=== PATIENT | female | born 1940 | race Caucasian/White ===

== ENCOUNTER 2023-02-25 10:12 | Day surgery (SDC) | payer MEDICARE, SELFPAY ==
--- OUTSIDE RECORDS SUMMARY | 2023-02-25 10:16 | XMS_ITS | Clinical Summary ---
Author Name Unknown Organization [facility] Address [address] [place] [address] Care Team Providers Care Tape Edge Machine Operator Name Role Phone Annie Wu M.D. Primary Care Pro vider Source Comments Patient records contain information from all sites at [facility]. For routine questions regarding patient records, call [phone] during business hours, M-F 8:00 AM - 5:00 PM Central Time. Record requests for emergency care only can be directed to [phone] at any time.[facility] Allergies No known active allergies Medications Medication Sig Dispensed Refills Start Date End Date Status cholecalciferol (for_VITAMIN D3) 1,000 Unit tablet Take 1 tablet by mouth daily. 0 11/14/2012 Active cyanocobalamin (for_VITAMIN B12) 1,000 mcg tablet Take 1 tablet by mouth daily. 0 04/09/2010 Active MULTIVITAMIN ORAL Take by mouth daily. 0 04/09/2010 Active DOCOSAHEXANOIC ACID/EPA (FISH OIL ORAL) Take 1 capsule by mouth daily. 0 04/09/2010 Active acetaminophen (TYLENOL) 500 mg tablet Take 2 tablets (1,000 mg total) by mouth every 6 (six) hours as needed for pain. 100 tablet 0 01/17/2019 Active FLAXSEED OIL ORAL Take 1 capsule by mouth daily. [address] Active aspirin [address] tablet Take 81 mg by mouth daily. 0 Active melatonin 5 mg tablet Take 5 mg by mouth at bedtime. 0 Active CALCIUM-MAGNESIUM -ZINC ORAL Take 1 tablet by mouth daily. 0 Active traZODone (DESYREL) 100 mg tablet Take 1 tablet (100 mg total) by mouth at bedtime. 90 tablet 3 02/11/2022 Active citalopram (CeleXA) 10 mg tablet Take 1 tablet (10 mg total) by mouth daily. 90 tablet 3 02/11/2022 Active benazepriL (LOTENSIN) 10 mg tablet Take 1 tablet (10 mg total) by mouth daily. 90 tablet 3 02/11/2022 Active letrozole (FEMARA) 2.5 mg tablet Take 1 tablet (2.5 mg total) by mouth daily. Take with or without food. 90 tablet 3 05/07/2022 Active metFORMIN (GLUCOPHAGE) 1,000 mg tablet TAKE 1 TABLET(1000 MG) BY MOUTH TWICE DAILY WITH MEALS 180 tablet 1 11/25/2022 Active atorvastatin (LIPITOR) 20 mg tablet TAKE 1 TABLET BY MOUTH DAILY 90 tablet 3 11/25/2022 Active glucos sul 2KCl/msm/chond/C/ Mn (GLUCOSAMINE CHONDROITIN ORAL) Take 1 tablet by mouth daily. 0 Active UNABLE TO FIND Take 1 each by mouth daily. Med Name: Prevagen 10 mg daily 0 Active levothyroxine (SYNTHROID, LEVOTHROID) 112 mcg tablet Take 1 tablet (112 mcg total) by mouth daily. 90 tablet 3 02/12/2023 Active levothyroxine (SYNTHROID, LEVOTHROID) 125 mcg tablet TAKE 1 TABLET(125 MCG) BY MOUTH DAILY 90 tablet 2 05/01/2022 3 Discontinued levothyroxine (SYNTHROID, LEVOTHROID) 125 mcg tablet TAKE 1 TABLET(125 MCG) BY MOUTH DAILY 90 tablet 0 01/27/2023 4 Discontinued Active Problems Problem Noted Date Diagnosed Date History Of Falling 02/12/2023 Osteopenia 04/17/2021 Prophylactic Use Aromatase Inhibitor 04/17/2021 Cancer Breast In Situ Left 04/17/2021 Aftercare Total Knee Arthroplasty 01/14/2019 Malignant Neoplasm Of Breast Female Left 017 Hypertension Essential Primary 03/19/2016 Overview: HTN - Hypertension date of onset unknown Hyperlipidemia 03/19/2016 Overview: date of onset unknown Hypothyroidism 03/19/2016 Overview: date of onset unknown Apnea Sleep Obstructive 03/19/2016 Overview: date of onset unknown Poliomyelitis 03/19/2016 Overview: as child Carpal Tunnel Syndrome Left 11/01/2015 Diverticulosis 04/26/2015 Diabetes Mellitus Type 2 Without Complication Overview: DM2 Chronic Fatigue Syndrome 08/02/2010 Overview: date of onset unknown Dry Eye Syndrome 07/11/2008 Cataract Senile Nuclear Sclerosis Bilateral 03/2008 Cataract 07/10/2008 Major Depressive Disorder Single Episode Unspeci fied 11/24/2007 Mass Adnexal 02/26/2007 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 Nodule Thyroid 07/10/2005 Edema Macular Cystoid Bilateral 05/05/2005 Arrhythmia Sinus 07/03/2004 Trigger Finger 06/24/2004 Presbyopia 06/10/2004 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 Erickson, Brook C, R.N. Annual Medicare Examination Return (Primary Dx) Discharge Disposition: Home or Self Care 02/12/2023 11:30 AM DICTAPHONE TRANSCRIBER Office Visit Department of Family Medicine, [facility], in [address] [address] Sarah iDaz APRN, C.N.P., D.N.P. Hypertension Essential Primary (Primary Dx); Preoperative Exam; Cataract; Malignant Neoplasm Of Breast Female Left (HCC); Diabetes Mellitus Type 2 Without Complication (HCC); Hypothyroidism; Hyperlipidemia; History Of Falling Discharge Disposition: Home or Self Care 02/10/2023 Orders Only [facility] Annie Wu M.D. Monitoring For Therapeutic Drug Therapy; Hypothyroidism 01/26/2023 Refill Department of Family Medicine, [facility], [address] [phone] Annie Wu M.D. Med Refill 11/25/2022 Refill Department of [facility], [facility], [address] [phone] Annie Wu M.D. Med Refill from Last 3 Months Immunizations Name Administration Dates Next Due H1N1 Inj 04/09/2009 HZV (ZOSTAVAX) 12/09/2006 HepB, Unspecified 02/12/2023(Deferred: Other - CHECK WITH PCP) Influenza (IM) Preservative Free 11/22/2009,10/11,12/09/2006 Influenza Split 12/16/2007,02/09/2001 Influenza high dose QV(65 ye ars or older) (PF) 11/04/2022,11/08/2021,11/16/2020,2019 Influenza, Seasonal, Injectable 12/10/19 06,12/10/2004,12/13/2003,2002 Influenza, Unspecified 12/01/2016,2015,10/30/2014,2013,11/11/2012,11/11/2011,11/23/2010 PCV13 06/08/2014 PCV20 11/04/2022 PPSV23 12/10/2004 RSV: respiratory syncytial v irus (ABRYSVO) bivalent vaccine 11/04/2022 RZV (SHINGRIX) 08/20/2022,(Deferred: Other - will inquire with PCP),04/19/2021,04/17/2021(Deferred: Other - Will update locally) SARS-COV-2 (COVID-19) - PFIZ ER (12 years or older) 11/01/2020,04/17/2020,03/22/2020 Td (Adult), adsorbed 01/19/2002 Tdap 10/29/2014,06/07/2012 influenza high dose (65 year s or older) (PF) 11/23/2018,11/11/2017 Family History Medical History Relation Name Comments Dementia Brother 1 Cholo Pulmonary hypertension Brother 2 [place] Brother 4 Иван Emphysema Brother 4 Иван No Known Problems Brother 5 Obey No Known Problems Brother 6 Joshua No Known Problems Brother 7 Wilian Breast cancer Daughter 1 Marvin Hypothyroidism Daughter 1 Marvin No Known Problems Daughter 2 Adeline No Known Problems Father Breast cancer Mother Cyndi Dementia Mother Cyndi Breast cancer Mother's Sister Ariana Breast cancer Sister Arlin No Known Problems Son Jaime Relation Name Status Comments Brother 1 Cholo Alive Brother 2 Randy (Age 86) Brother 3 Pastor Alive Brother 4 Иван (Age 71) Brother 5 Obey Alive Brother 6 Joshua Alive Brother 7 Wilian Alive Daughter 1 Marvin Alive Daughter 2 Adeline Alive Father (Age 91) Mother Cyndi (Age 84) Mother's Sister Ariana Sister Arlin Alive Son Jaime Alive Social History Tobacco Use Types Packs/Day Years Used Date Smoking Tobacco: Never Smokeless Tobacco: Never Alcohol Use Standard Drinks/Week Comments No 0 (1 standard drink = 0.6 oz pur e alcohol) [facility] Utilities Answer Date Recorded In the past 12 months has [facility] [employer], oil, or water [employer] threatened to shut off services in your home? No 02/12/2023 Humiliation, Afraid, Rape, and Kick questionnair e Answer Date Recorded Within the last year, have y ou been afraid of your partner or ex-partner? No 05/02/2022 Within the last year, have y ou been humiliated or emotionally abused in other ways by your partner or ex-partner? No Within the last year, have y ou been kicked, hit, slapped, or otherwise physically hurt by your partner or ex-partner? No 05/02/2022 Within the last year, have y ou been raped or forced to have any kind of sexual activity by your partner or ex-partner? No 05/02/2022 Social Connection and Isolat ion Panel [NHANES] Answer Date Recorded In a typical week, how many times do you talk on the phone with family, friends, or neighbors? Three times a week 05/02/2022 How often do you get togethe r with friends or relatives? Once a week 05/02/2022 How often do you attend chur ch or latter-day services? More than 4 times per year 05/02/2022 Do you belong to any clubs o r organizations such as islam groups, unions, fraternal or athletic groups, or school groups? No 05/02/2022 How often do you attend meet ings of the clubs or organizations you belong to? Never 05/02/2022 Are you , , di vorced, , never , or living with a partner? 05/02/2022 AUDIT-C Answer Date Recorded Q1: How often do you have a drink containing alc ohol? Never 05/02/2022 Average Number of Drinks Not on file 023 Frequency of Binge Drinking Not on file 04/10 Overall Financial Resource Strain (CARDIA) Answe r Date Recorded How hard is it for you to pa y for the very basics like food, housing, medical care, and heating? Not hard at all 05/02/2022 PHQ-2 Answer Date Recorded PHQ-2 Score 0 02/11/2023 [facility] - Occupational Stress Questionnaire Answer Date Recorded Do you feel stress - tense, restless, nervous, or anxious, or unable to sleep at night because your mind is troubled all the time - these days? To some extent 05/02/2022 Exercise Vital Sign Answer Date Recorde d On average, how many days pe r week do you engage in moderate to strenuous exercise (like a brisk walk)? 2 days 05/02/2022 On average, how many minutes do you engage in exercise at this level? 20 min 05/02/2022 Hunger Vital Sign Answer Date Recorded Within the past 12 months, y ou worried that your food would run out before you got the money to buy more. Never true 05/03/19 23 Within the past 12 months, t he food you bought just didn't last and you didn't have money to get more. Never true 05/02/2022 PRAPARE - Transportation Answer Date Re corded In the past 12 months, has l ack of transportation kept you from medical appointments or from getting medications? No 04/10 In the past 12 months, has l ack of transportation kept you from meetings, work, or from getting things needed for daily living? No 05/02/2022 Housing Stability Vital Sign Answer Pb e Recorded In the last 12 months, was t here a time when you were not able to pay the mortgage or rent on time? No 05/02/2022 In the last 12 months, how many places have you lived? 1 05/02/2022 In the last 12 months, was t here a time when you did not have a steady place to sleep or slept in a jail (including now)? No 05/02/2022 Depression Answer Date Recor ded PHQ-9 Total Score (max 27) 3 02/11 Nutrition Answer Date Recorded Nutrition: EVOO Fat Source Yes 05/02 On average, how many serving s of fruits and vegetables do you eat per day (serving size is equal to 1 cup or approximately the size of a tennis ball)? 0-1 05/02/2022 Dental Answer Date Recorded Dental: Regular Dentist Yes 04/05/19 Employment Answer Date Recorded Employment status Retired 05/02/2022 Education Answer Date Recorded What is the highest level of school you have completed or the highest degree you have received? 12th grade 03/23/2020 Sex and Gender Information Value Date Recorded Sex Assigned at Female 04/12/2021 7:31 PM DICTAPHONE TRANSCRIBER Gender Identity Female 04/12/2021 7:31 PM DICTAPHONE TRANSCRIBER Sexual Orientation Straight 04/12/2021 7: 31 PM DICTAPHONE TRANSCRIBER Last Filed Vital Signs Vital Sign Reading Time Taken Comments Blood Pressure 101/68 02/12/2023 11:19 AM DICTAPHONE TRANSCRIBER Pulse 80 02/12/2023 11:19 AM DICTAPHONE TRANSCRIBER Temperature 37.1 ??C (98.8 ??F) 02/12/2023 11:[address] Respiratory Rate 20 02/12/2023 11:19 AM DICTAPHONE TRANSCRIBER Oxygen Saturation 95% 02/12/2023 11:19 AM DICTAPHONE TRANSCRIBER Inhaled Oxygen Concentration - - Weight 69.2 kg (152 lb 8.9 oz) 02/12/2023 11:19 AM DICTAPHONE TRANSCRIBER Height 163.4 cm (5' 4.33) 02/12/2023 11:19 AM [place] Body Mass Index 25.92 02/12/2023 11:19 AM DICTAPHONE TRANSCRIBER Plan of Treatment Upcoming Encounters Date Type Department Care Team (Latest Contact Info) Description 05/08/2023 12:00 PM CDT Clinical Communication Virtual Review in [place], [place] [address] [place] [address] 05/11/2023 10:30 AM CDT Appointment Department of Radiology in [address] [phone] Neptali Henning M.D. [address] [place] [phone] Discharge Disposition: Home or Self Care 05/11/2023 12:40 PM CDT Appointment Department of Radiology, [facility], in [address] [phone] Neptali Henning M.D. [address] [place] [phone] Discharge Disposition: Home or Self Care 05/11/2023 3:30 PM CDT Office Visit [facility] in [address] [phone] Neptali Henning M.D. [address] [place] [phone] Health Maintenance Due Date Last Done Comments Hepatitis B Vaccines (1 of 3 - Risk 3-dose series) 1998 Diabetic Office Visit with Foot Exam 03/02/2021 03/02/2020, 11/11/2017, 01/21/2017 Depression Monitoring (PHQ-9) 06/12/2023 02/11/2023 Hemoglobin A1C 08/13/2023 02/12/2023, 02/09, 09/12/2021, Additional history exists Dilated Eye Exam 01/22/2024 01/21/2023 (Per formed elsewhere), 06/12/2021 (Performed elsewhere), 08/09/2018 (Performed elsewhere), Additional history exists Creatinine Level (Kidney Function Test) 02/13/2024 02/12/2023, 02/25/2022, 03/15/2021, Additional history exists Office Visit for Blood Pressure Check / Re-check 02/13/2024 02/12/2023 Potassium Level 02/13/2024 02/12/2023, 02/09, 03/15/2021, Additional history exists Sodium Level 02/13/2024 02/12/2023, 02/09, 03/15/2021, Additional history exists Thyroid Stimulating Hormone (TSH) test for thyroid function 02/13/2024 02/12/2023, 02/25/2022, 03/15/2021, Additional history exists Urine Albumin 02/13/2024 02/12/2023, 0205/2021, 03/02/2020, Additional history exists Visit: Chronic Disease, age 18+ 02/13/2024 02/12/2023, 02/12/2023 Visit: Medicare Annual Wellness 02/14/2024 02/12/2023 DTaP,Tdap,and Td Vaccines (3 - Td or Tdap) 10/29/2024 10/29/2014, 06/07/2012, 01/19/2002 Zoster Vaccines Completed 08/20/2022, 04/09, 12/09/2006 Influenza Vaccine Completed 11/04/2022, , 11/16/2020, Additional history exists Pneumococcal vaccine (65+ years) Completed 11/04/2022, 06/08/2014, 12/10/2004 RSV vaccine - (32-36 weeks) or 60+ years Completed 11/04/2022 COVID-19 Vaccine Completed 11/13/2022, 02/2021, 04/19/2021, Additional history exists Fall Risk Screen (Annual) Completed 02/12/2023 HPV Vaccines Aged Out No longer eligi ble based on patient's age to complete this topic Goals Goal Patient Goal Type Associated Problems Recent Progress Patient-Stated? Author Patient/caregiver will be independent in managing appointments General Shital Asif R.N. Note: Patient to follow up with orthopedics regarding knee pain. Medical Devices Implanted Type Area Saw Superintendent Device Identifier Shelf Expiration Date Model / Serial / Lot Cmnt Bn Hi Visc Pmma 40 - [id number] Implanted:Qty : 1 on 01/14/2019 by Regan Alatorre M.D. at [facility] Bone Cement Left: Knee [place] [id number] 06/08/2020 6191-1-00 1 / / [id number] Triathlon Primary Tibial Baseplate Implanted:Qty : 1 on 01/14/2019 by Regan Alatorre M.D. at [facility] Knee Implant Left: Knee [place] [id number] 07/22/2021 5520-B-40 0 / / [id number] Procedures Procedure Name Priority Date/Time Associated Diagnosis Comments ALBUMIN, RANDOM, U Routine 02/12/2023 12 :00 PM DICTAPHONE TRANSCRIBER Diabetes Mellitus Type 2 Without Complication (HCC) HEMOGLOBIN A1C, B Routine 02/12/2023 11: 51 AM DICTAPHONE TRANSCRIBER Diabetes Mellitus Type 2 Without Complication (HCC) BASIC METABOLIC PANEL, S/P Routine 02/12/2023 11:51 AM DICTAPHONE TRANSCRIBER Hypertension Essential Primary Diabetes Mellitus Type 2 Without Complication (HCC) THYROID-STIMULATING HORMONE-SENSITIVE (S-TSH) Routine 02/12/2023 11:51 AM DICTAPHONE TRANSCRIBER Hypothyroidism LIPID PANEL, S Routine 02/12/2023 11:51 AM DICTAPHONE TRANSCRIBER Hyperlipidemia from Last 3 Months Results * Albumin, Random, Urine (02/12/2023 12:00 PM DICTAPHONE TRANSCRIBER) Microalbumin 22.3 mg/L 02/12/2023 12:17 PM DICTAPHONE TRANSCRIBER CNFL Creatinine 210 mg/dL 02/12/2023 12:17 PM DICTAPHONE TRANSCRIBER CNFL Albumin/Creatinin e Ratio 11 <25 mg/g 02/12/2023 12:17 PM DICTAPHONE TRANSCRIBER CNFL Urine (Urine, Midstream) 02/12/2023 12:00 PM DICTAPHONE TRANSCRIBER 02/12/2023 12:00 PM DICTAPHONE TRANSCRIBER Sarah M Joe CRAFT C.N.P., D.N.P. LAB URINE ORDERABLES [facility] [address] [place] [id number], [facility] [place] [address] * (ABNORMAL) Lipid Panel (02/12/2023 11:51 AM DICTAPHONE TRANSCRIBER) Triglycerides 175(H) mg/dL 02/12/2023 12:25 PM DICTAPHONE TRANSCRIBER CNFL Comment: ----REFERENCE VALUE---- Normal: <150 mg/dL Borderline High: 150-199 mg/dL High: 200-499 mg/dL Very High: > or =500 mg/dL Cholesterol, Total 114 mg/dL 2023 12:25 PM DICTAPHONE TRANSCRIBER CNFL Comment: ----REFERENCE VALUE---- Desirable: < 200 mg/dL Borderline High: 200 - 239 mg/dL High: > or = 240 mg/dL Cholesterol, LDL, Calculated 35 mg/dL 02/12/2023 12:25 PM DICTAPHONE TRANSCRIBER [facility]FL Comment: ----REFERENCE VALUE---- Desirable: <100 mg/dL Above Desirable: 100-129 mg/dL Borderline High: 130-159 mg/dL High: 160-189 mg/dL Very High: >=190 mg/dL ----ADDITIONAL INFORMATION---- LDL cholesterol calculated using the Thomas/NIH equation. Cholesterol, HDL 51 >=50 mg/dL 02/12/19 12:25 PM DICTAPHONE TRANSCRIBER CNFL Cholesterol, Non-HDL, Calculated 63 mg/dL 02/12/2023 12:25 PM DICTAPHONE TRANSCRIBER CNFL Comment: ----REFERENCE VALUE---- Desirable: <130 mg/dL Above Desirable: 130-159 mg/dL Borderline High: 160-189 mg/dL High: 190-219 mg/dL Very High: > or =220 mg/dL Fasting (8 HR or more) No Yes 02/12/2023 12:00 PM DICTAPHONE TRANSCRIBER [facility] Blood (Blood, Venous) 02/12/2023 11:51 AM DICTAPHONE TRANSCRIBER 02/12/2023 12:00 PM DICTAPHONE TRANSCRIBER Chester Telles APRN.N.P., D.N.P. LAB BLOOD ADD-ON Performing Organization Address [facility] [place] [address], [place] [address] * (ABNORMAL) S-TSH (Thyroid-Stimulating Hormone - Sensitive) (02/12/2023 11:51 AM DICTAPHONE TRANSCRIBER) TSH, Sensitive 0.2(L) 0.3 - 4.2 mIU/L 02/12/2023 12:34 PM DICTAPHONE TRANSCRIBER [facility] Blood (Blood, Venous) 02/12/2023 11:51 AM DICTAPHONE TRANSCRIBER 02/12/2023 12:00 PM DICTAPHONE TRANSCRIBER Sarah Diaz APRN, C.N.P., D.N.P. LAB BLOOD ADD-ON Performing Organization Address [facility] de Phone Number [address] [address], [address] [address] * (ABNORMAL) Hemoglobin A1c (02/12/2023 11:51 AM DICTAPHONE TRANSCRIBER) Hemoglobin A1c, B 6.3(H) 4.2 - 5.6 % 02/12/2023 12:14 PM DICTAPHONE TRANSCRIBER [facility] Comment: Hemoglobin A1c values of 5.7-6.4 percent indicate an increased risk for developing diabetes mellitus. In diabetic patients, HbA1c goals should be discussed with healthcare provider. Blood (Blood, Venous) 02/12/2023 11:51 AM DICTAPHONE TRANSCRIBER 02/12/2023 12:00 PM DICTAPHONE TRANSCRIBER Sarah Diaz APRN C.N.P., D.N.P. LAB BLOOD ADD-ON [facility] [address] [place] [id number], [facility] [place] [address] * (ABNORMAL) Basic Metabolic Panel (02/12/2023 11:51 AM DICTAPHONE TRANSCRIBER) Potassium, P 4.7 3.6 - 5.2 mmol/L 02/12/2023 12:25 PM DICTAPHONE TRANSCRIBER CNFL Sodium, P 139 135 - 145 mmol/L 02/12/2023 12:25 PM DICTAPHONE TRANSCRIBER CNFL Chloride, P 100 98 - 107 mmol/L 02/12/2023 12:25 PM DICTAPHONE TRANSCRIBER CNFL Bicarbonate, P 30(H) 22 - 29 mmol/L 02/12/2023 12:25 PM DICTAPHONE TRANSCRIBER CNFL Anion Gap, P 9 7 - 15 02/12/2023 12:25 PM DICTAPHONE TRANSCRIBER CNFL BUN (Blood Urea Nitrogen), P 20 6 - 21 mg/dL 02/12/2023 12:25 PM DICTAPHONE TRANSCRIBER CNFL Creatinine 0.69 0.59 - 1.04 mg/dL 02/12/2023 12:25 PM DICTAPHONE TRANSCRIBER CNFL Estimated GFR (eGFR) 86 >=60 mL/min/BSA 02/12/2023 12:25 PM DICTAPHONE TRANSCRIBER CNFL Comment: Estimated GFR calculated using the 2020 CKD_EPI creatinine equation. Calcium, Total, P 10.7(H) 8.8 - 10.2 mg/dL 02/12/2023 12:25 PM DICTAPHONE TRANSCRIBER CNFL Glucose, P 143(H) 70 - 140 mg/dL 02/12/2023 12:25 PM DICTAPHONE TRANSCRIBER CNFL Blood (Blood, Venous) 02/12/2023 11:51 AM DICTAPHONE TRANSCRIBER 02/12/2023 12:00 PM DICTAPHONE TRANSCRIBER Sarah Diaz APRN C.N.P., D.N.P. LAB BLOOD ADD-ON [facility] [address] [address], [place] CN[address] 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 See document viewer. Advance Directives 03/02/2003 12:00 AM Leg acy document. See document viewer. Latest Code Status on File Code Status Date Activated Date Inactivated Comments Full Code 01/14/2019 1:44 PM 01/17/2019 2:42 PM Question Answer Comments Full Code: Discussed Code Status History Code Status Date Activated Date Inactivated Comments Full Code 01/14/2019 12:32 PM 01/14/2019 1:44 PM Question Answer Comments Full Code: Discussed Care Teams Tape Edge Machine Operator Relationship Specialty Start Date End Date Annie Wu M.D. [address] [place] [address] PCP - General 07/24/16 [facility] Central Service Tech 02/12/23 [facility] 02/12/23 [facility] Hearing Molecular Biologist 02/12/23
--- OUTSIDE RECORDS SUMMARY | 2023-02-25 10:16 | XMS_ITS ---
Author Name Unknown Organization [facility] Address [address] [place] [address] Care Team Providers Care Senior Manufacturing Technician Name Role Phone Unavailable Unavailable Unavailable Surgery Details Not on file Complications Check Surgery Details section. Procedure Estimated Blood Loss Check Surgery Details section. Procedure Findings Check Surgery Details section. Procedure Specimens Taken Check Surgery Details section.
--- OUTSIDE RECORDS SUMMARY | 2023-02-25 10:16 | XMS_ITS | Referral Summary ---
Author Name Unknown Organization [facility] Address [address] [place] [address] Care Team Providers Care Reel And Rewinder Operator Name Role Phone Annie Wu M.D. Primary Care Pro vider Source Comments Patient records contain information from all sites at [facility]. For routine questions regarding patient records, call [phone] during business hours, M-F 8:00 AM - 5:00 PM Central Time. Record requests for emergency care only can be directed to [phone] at any time.[facility] Encounters Date Type Department Care Team Description 02/12/2023 12:00 PM DIABETES MANAGER Office Visit Department of Family Medicine, [facility], in [address] [phone] Annie Wu M.D. Erickson, Brook C, R.N. Annual Medicare Examination Return (Primary Dx) Discharge Disposition: Home or Self Care 02/12/2023 11:30 AM DIABETES MANAGER Office Visit Department of Family Medicine, [facility], in [address] [phone] Sarah Diaz APRN, C.N.P., D.N.P. Hypertension Essential Primary (Primary Dx); Preoperative Exam; Cataract; Malignant Neoplasm Of Breast Female Left (HCC); Diabetes Mellitus Type 2 Without Complication (HCC); Hypothyroidism; Hyperlipidemia; History Of Falling Discharge Disposition: Home or Self Care 02/10/2023 Orders Only [facility] PCP [facility] Annie Wu M.D. Monitoring For Therapeutic Drug Therapy; Hypothyroidism 01/26/2023 Refill Department of [facility], [facility], in [address] [phone] Annie Wu M.D. Med Refill 11/25/2022 Refill Department of [facility], [facility], in [address] [phone] Annie Wu M.D. Med Refill from Last 3 Months Allergies No known active allergies Medications Medication [...] Polymyalgia Rheumatica Radiculopathy Thoracic First 07/02/2005 11/26/2019 Immunizations Name Administration Dates Next Due H1N1 [...] (65 year s or older) (PF) 11/23/2018,11/11/2017 Social History Tobacco Use Types Packs/Day Years Used Date Smoking Tobacco: Never Smokeless Tobacco: Never Alcohol Use Standard Drinks/Week Comments No 0 (1 standard drink = 0.6 oz pur e alcohol) [facility] [place] Projectities Answer Date Recorded In the past 12 months has e Versa, gas, oil, or water [employer] threatened to shut off services in your [...] often do you attend chur ch or sabianism services? More than 4 times per year 05/02/2022 Do you belong to any clubs o r organizations such as presybeterian groups, unions, fraternal or athletic groups, or [...] Answer Date Recorded PHQ-2 Score 0 02/11/2023 [facility] of Occupat ional Health - Occupational Stress [...] place to sleep or slept in a skilled nursing (including now)? No 05/02/2022 Depression Answer Date [...] Sex Assigned at Female 04/12/2021 7:31 PM DIABETES MANAGER Gender Identity Female 04/12/2021 7:31 PM DIABETES MANAGER Sexual Orientation Straight 04/12/2021 7: 31 PM DIABETES MANAGER Last Filed Vital Signs Vital Sign Reading Time Taken Comments Blood Pressure 101/68 02/12/2023 11:19 AM DIABETES MANAGER Pulse 80 02/12/2023 11:19 AM DIABETES MANAGER Temperature 37.1 ??C (98.8 ??F) 02/12/2023 11:[address] Respiratory Rate 20 02/12/2023 11:19 AM DIABETES MANAGER Oxygen Saturation 95% 02/12/2023 11:19 AM DIABETES MANAGER Inhaled Oxygen Concentration - - Weight 69.2 kg (152 lb 8.9 oz) 02/12/2023 11:19 AM DIABETES MANAGER Height 163.4 cm (5' 4.33) 02/12/2023 11:[address] Body Mass Index 25.92 02/12/2023 11:19 AM DIABETES MANAGER Plan of Treatment Upcoming Encounters Date Type Department Care Team (Latest Contact Info) Description 05/08/2023 12:00 PM CDT Clinical Communication Virtual Review in [place], [place] [address] [place] [address] 05/11/2023 10:30 AM CDT Appointment Department of Radiology in [address] [phone] Neptali Henning M.D. [address] [place] [address] Discharge Disposition: Home or Self Care 05/11/2023 12:40 PM CDT Appointment Department of Radiology, [facility], in [place], [place] [address] [place] [address] Neptali Henning M.D. [address] [place] [address] Discharge Disposition: Home or Self Care 05/11/2023 3:30 PM CDT Office Visit Breast Diagnostic Clinic in [place], [place] [address] [place] [address] Neptali Henning M.D. [address] [place] [address] Goals Goal Patient Goal Type Associated Problems Recent Progress Patient-Stated? Author Patient/caregiver will be independent in managing appointments General Shital Asif R.N. Note: Patient to follow up with orthopedics regarding knee pain. Medical Devices Implanted Type Area [employer] Business Intelligence Developer Device Identifier Shelf Expiration Date Model / Serial / Lot Cmnt Bn Hi Visc Pmma 40 - [id number] Implanted:Qty : 1 on 01/14/2019 by Regan Alatorre M.D. at [facility] Bone Cement Left: Knee [place] [id number] 06/08/2020 6191-1-00 1 / / [id number] Triathlon Primary Tibial Baseplate Implanted:Qty : 1 on 01/14/2019 by Regan Alatorre M.D. at [facility] Knee Implant Left: Knee [place] [id number] 07/22/2021 5520-B-40 0 / / [id number] Procedures Procedure Name Priority Date/Time Associated Diagnosis Comments ALBUMIN, RANDOM, U Routine 02/12/2023 12 :00 PM DIABETES MANAGER Diabetes Mellitus Type 2 Without Complication (HCC) HEMOGLOBIN A1C, B Routine 02/12/2023 11: 51 AM DIABETES MANAGER Diabetes Mellitus Type 2 Without Complication (HCC) BASIC METABOLIC PANEL, S/P Routine 02/12/2023 11:51 AM DIABETES MANAGER Hypertension Essential Primary Diabetes Mellitus Type 2 Without Complication (HCC) THYROID-STIMULATING HORMONE-SENSITIVE (S-TSH) Routine 02/12/2023 11:51 AM DIABETES MANAGER Hypothyroidism LIPID PANEL, S Routine 02/12/2023 11:51 AM DIABETES MANAGER Hyperlipidemia from Last 3 Months Results * Albumin, Random, Urine (02/12/2023 12:00 PM DIABETES MANAGER) Microalbumin 22.3 mg/L 02/12/2023 12:17 PM DIABETES MANAGER CNFL Creatinine 210 mg/dL 02/12/2023 12:17 PM DIABETES MANAGER CNFL Albumin/Creatinin e Ratio 11 <25 mg/g 02/12/2023 12:17 PM DIABETES MANAGER CNFL Urine (Urine, Midstream) 02/12/2023 12:00 PM DIABETES MANAGER 02/12/2023 12:00 PM DIABETES MANAGER Sarah Diaz APRN, C.N.P., D.N.P. LAB URINE ORDERABLES Performing Organization Address [facility]/State/[facility] Co de Phone Number [facility] [address] [place] [id number], [facility] in [address] [address] * (ABNORMAL) Lipid Panel (02/12/2023 11:51 AM DIABETES MANAGER) Triglycerides 175(H) mg/dL 02/12/2023 12:25 PM DIABETES MANAGER CNFL Comment: ----REFERENCE VALUE---- Normal: <150 mg/dL Borderline High: 150-199 mg/dL High: 200-499 mg/dL Very High: > or =500 mg/dL Cholesterol, Total 114 mg/dL 2023 12:25 PM DIABETES MANAGER CNFL Comment: ----REFERENCE VALUE---- Desirable: < 200 mg/dL Borderline High: 200 - 239 mg/dL High: > or = 240 mg/dL Cholesterol, LDL, Calculated 35 mg/dL 02/12/2023 12:25 PM DIABETES MANAGER CNFL Comment: ----REFERENCE VALUE---- Desirable: <100 mg/dL Above Desirable: 100-129 mg/dL Borderline High: 130-159 mg/dL High: 160-189 mg/dL Very High: >=190 mg/dL ----ADDITIONAL INFORMATION---- LDL cholesterol calculated using the Thomas/NIH equation. Cholesterol, HDL 51 >=50 mg/dL 02/12/19 12:25 PM DIABETES MANAGER CNFL Cholesterol, Non-HDL, Calculated 63 mg/dL 02/12/2023 12:25 PM DIABETES MANAGER CNFL Comment: ----REFERENCE VALUE---- Desirable: <130 mg/dL Above Desirable: 130-159 mg/dL Borderline High: 160-189 mg/dL High: 190-219 mg/dL Very High: > or =220 mg/dL Fasting (8 HR or more) No Yes 02/12/2023 12:00 PM DIABETES MANAGER CNFL Blood (Blood, Venous) 02/12/2023 11:51 AM DIABETES MANAGER 02/12/2023 12:00 PM DIABETES MANAGER Chester Telles APRN.N.P., D.N.P. LAB BLOOD ADD-ON [facility] [address] [place] [address], [facility] CNFL [facility] [place] [address] * (ABNORMAL) S-TSH (Thyroid-Stimulating Hormone - Sensitive) (02/12/2023 11:51 AM DIABETES MANAGER) [facility] TSH, Sensitive 0.2(L) 0.3 - 4.2 mIU/L 02/12/2023 12:34 PM DIABETES MANAGER CNFL Blood (Blood, Venous) 02/12/2023 11:51 AM DIABETES MANAGER 02/12/2023 12:00 PM DIABETES MANAGER Sarah Diaz APRN, C.N.P., D.N.P. LAB BLOOD ADD-ON Performing Organization Address City/[facility]/ZIP Co de Phone Number [address] [address], [facility] CNFL [facility] in [address] [address] * (ABNORMAL) Hemoglobin A1c (02/12/2023 11:51 AM DIABETES MANAGER) Hemoglobin A1c, B 6.3(H) 4.2 - 5.6 % 02/12/2023 12:14 PM DIABETES MANAGER CNFL Comment: Hemoglobin A1c values of 5.7-6.4 percent indicate an increased risk for developing diabetes mellitus. In diabetic patients, HbA1c goals should be discussed with healthcare provider. Blood (Blood, Venous) 02/12/2023 11:51 AM DIABETES MANAGER 02/12/2023 12:00 PM DIABETES MANAGER Sarah Diaz APRN, C.N.P., D.N.P. LAB BLOOD ADD-ON Performing Organization Address City/[facility]/ZIP Co de Phone Number [address] [address], [facility] CNFL [facility] in [address] [address] * (ABNORMAL) Basic Metabolic Panel (02/12/2023 11:51 AM DIABETES MANAGER) Potassium, P 4.7 3.6 - 5.2 mmol/L 02/12/2023 12:25 PM DIABETES MANAGER CNFL Sodium, P 139 135 - 145 mmol/L 02/12/2023 12:25 PM DIABETES MANAGER CNFL Chloride, P 100 98 - 107 mmol/L 02/12/2023 12:25 PM DIABETES MANAGER CNFL Bicarbonate, P 30(H) 22 - 29 mmol/L 02/12/2023 12:25 PM DIABETES MANAGER CNFL Anion Gap, P 9 7 - 15 02/12/2023 12:25 PM DIABETES MANAGER CNFL BUN (Blood Urea Nitrogen), P 20 6 - 21 mg/dL 02/12/2023 12:25 PM DIABETES MANAGER CNFL Creatinine 0.69 0.59 - 1.04 mg/dL 02/12/2023 12:25 PM DIABETES MANAGER CNFL Estimated GFR (eGFR) 86 >=60 mL/min/BSA 02/12/2023 12:25 PM DIABETES MANAGER CNFL Comment: Estimated GFR calculated using the 2020 CKD_EPI creatinine equation. Calcium, Total, P 10.7(H) 8.8 - 10.2 mg/dL 02/12/2023 12:25 PM DIABETES MANAGER CNFL Glucose, P 143(H) 70 - 140 mg/dL 02/12/2023 12:25 PM DIABETES MANAGER CNFL Blood (Blood, Venous) 02/12/2023 11:51 AM DIABETES MANAGER 02/12/2023 12:00 PM DIABETES MANAGER Sarah Diaz APRN, C.N.P., D.N.P. LAB BLOOD ADD-ON Performing Organization Address City/State/[facility] Co de Phone Number [facility] [address] [place] [address], [place] CNFL [facility] in [address] [address] from Last 3 Months Advance Directives For more information, please contact: [phone] Documents on File Type Date Recorded Patient Office Workforce Planner Expl anation Advance Directives 03/02/2003 12:00 AM [...] Answer Comments Full Code: Discussed Care Teams Reel And Rewinder Operator Relationship Specialty Start Date End Date Annie Wu M.D. [address] [phone] PCP - General 07/24/16 [facility] Potato Chip Maker 02/12/23 [facility] 02/12/23 [facility] Pulp Refiner Operator 02/12/23
--- OUTSIDE RECORDS SUMMARY | 2023-02-25 10:16 | XMS_ITS | Encounter Summary ---
Author Name Unknown Organization [facility] Address [address] [place] [address] Care Team Providers Care President [place] [employer] Name Role Phone Annie Wu M.D. Primary Care Pro vider Reason for Referral * Outpatient (Routine) - Authorized Specialty Diagnoses / Procedures Referred By Josefina gauthier Referred To Contact Jazzy Street M.D. [address] [place] [phone] [facility] Region Referral ID Status Reason Start Date Expiration Date V isits Requested Visits Authorized [id number] Authorized 02/12/2023 02/11/2026 1 1 Scheduling Instructions 12-Month Medicare Visit E EXTRA Reason for Visit * Reason Comments Medicare Annual Wellness Visit Subsequen t * Outpatient (Routine) - Closed Specialty Diagnoses / Procedures Referred By Josefina gauthier Referred To Contact Annie Wu M.D. [address] [place] [phone] [facility] [place] Region Referral ID Status Reason Start Date Expiration Date Visits Re quested Visits Authorized [id number] Closed 08/19/2022 08/18/2025 1 1 Encounter Details Date Type Department Care Team (Late st Contact Info) Description 02/12/2023 12:00 PM MOVIE EXTRA Office Visit Department of Family Medicine, [facility], in [address] [phone] Annie Wu M.D. [address] [place] [phone] Gloria Haney R.N. [address] [place] [phone] Annual Medicare Examination Return (Primary Dx) Discharge Disposition: Home or Self Care Social History Tobacco Use Types Packs/Day Years Used Date Smoking Tobacco: Never Smokeless Tobacco: Never Alcohol Use Standard Drinks/Week Comments No 0 (1 standard drink = 0.6 oz pur e alcohol) [facility] Utilities Answer Date Recorded In the past 12 months has e electric, gas, oil, or water [employer] threatened to shut off services in your [...] often do you attend chur ch or pentecostal services? More than 4 times per year 05/02/2022 Do you belong to any clubs o r organizations such as hinduism groups, unions, fraternal or athletic groups, or [...] Answer Date Recorded PHQ-2 Score 0 02/11/2023 [facility] of Occupat ional Health - Occupational Stress [...] place to sleep or slept in a correction (including now)? No 05/02/2022 Depression Answer Date [...] Date Recorded Dental: Regular Dentist Yes 04/05/19 21 Employment Answer Date Recorded Employment status Retired 05/02/2022 Education Answer Date Recorded What is the highest level of school you have completed or the highest degree you have received? 12th grade 03/23/2020 Sex and Gender Information Value Date Recorded Sex Assigned at Female 04/12/2021 7:31 PM MOVIE EXTRA Gender Identity Female 04/12/2021 7:31 PM MOVIE EXTRA Sexual Orientation Straight 04/12/2021 7: 31 PM MOVIE EXTRA documented as of this encounter Progress Notes * Gloria Haney RBronwynN. - 02/12/2023 12:00 PM CST HEALTH ASSESSMENT Reason For Visit Patient presents with Medicare Annual Wellness Visit Subsequent The following portions of the patient's history were reviewed and updated as appropriate: allergies, medications, family history, social history, surgical history and care team/suppliers. VITALS Blood Pressure: 101/68 (02/12/2023 11:19 AM) Temperature: 37.1 ??C (02/12/2023 11:19 AM) Temp Source: Temporal (02/12/2023 11:19 AM) Pulse Rate: 80 (02/12/2023 11:19 AM) Resp Rate: 20 (02/12/2023 11:19 AM) BMI (Calculated): 25.9 kg/m?? (02/12/2023 11:19 AM) SpO2: 95 % (02/12/2023 11:19 AM) Height: 163.4 cm (02/12/2023 11:19 AM) Weight: 69.2 kg (02/12/2023 11:19 AM) Health Risk Assessment (HRA) completed and reviewed: Yes Social Determinants of Health (SDOH) questionnaires were reviewed and the following concerns were prioritized to be addressed during this visit: No concerns identified. Depression Screening PHQ-2 Score: 0 PHQ-9 Total Score (max 27): 3 Cognitive Assessment Cognitive function assessed by direct observation without concerns. Current Opioid Use None FUNCTIONAL/HOME ENVIRONMENT History of falls: Have you fallen within the last year or do you fear you might fall?: No (1:19 AM) Do you use an assisted device to walk? (Walker, cane, wheelchair, crutch): Yes (02/12/2023 11:19 AM) Today, do you feel any of the following? Weak, dizzy, shaky, or unsteady?: No (02/12/2023 11:19 AM) Have you taken any medication within the last 6 hours which may make you feel drowsy? Such as sleep, pain, or anxiety medication: No (02/12/2023 11:19 AM) Home Safety Does your home have throw rugs, poor lighting or slippery bathtub/shower? No Does your home have grab bars in the bathroom, handrails on the stairs and steps? Yes handrails on stairs, no grab bars in the bathroom though. Does your home have functional smoke and carbon monoxide alarms? Yes Advance Directive Advance Directives: Not Received Patient has advance directive on file and indicates it is current and in effect. Preventive Services Schedule Health Maintenance Topic Date Due Hepatitis B Vaccines (1 of 3 - Risk 3-dose series) Never done Diabetic Office Visit with Foot Exam 03/02/2021 Urine Albumin 03/15/2022 Hemoglobin A1C 08/25/2022 Visit: Chronic Disease, age 18+ 02/11/2023 Creatinine Level (Kidney Function Test) 02/25/2023 Potassium Level 02/25/2023 Thyroid Stimulating Hormone (TSH) test for thyroid function 02/25/2023 Sodium Level 02/25/2023 Depression Monitoring (PHQ-9) 06/12/2023 Dilated Eye Exam 01/22/2024 Office Visit for Blood Pressure Check / Re-check 02/13/2024 Visit: Medicare Annual Wellness 02/14/2024 DTaP,Tdap,and Td Vaccines (3 - Td or Tdap) 10/29/2024 Fall Risk Screen (Annual) Completed COVID-19 Vaccine Completed RSV vaccine - (32-36 weeks) or 60+ years Completed Pneumococcal vaccine (65+ years) Completed Influenza Vaccine Completed Zoster Vaccines Completed HPV Vaccines Aged Out Patient lives at home with her daughter who helps her with any needed tasks. After Visit Summary (AVS) reviewed and patient will access via patient online services E EXTRA documented in this encounter Plan of Treatment Upcoming Encounters Date Type Department Care Team (Latest Contact Info) Description 05/08/2023 12:00 PM CDT Clinical Communication Virtual Review in [address] [address] 05/11/2023 10:30 AM CDT Appointment Department of Radiology in [address] [phone] Neptali Henning M.D. [address] [place] [phone] Discharge Disposition: Home or Self Care 05/11/2023 12:40 PM CDT Appointment Department of Radiology, [facility], in [address] [phone] Neptali Henning M.D. [address] [place] [phone] Discharge Disposition: Home or Self Care 05/11/2023 3:30 PM CDT Office Visit Breast Diagnostic Clinic in [address] [phone] Neptali Henning M.D. [address] [place] [phone] Scheduled Referrals Name Type Priority Associated Diagnoses Orde r Schedule Primary Care nurse visit (clinic) - [facility] Region; Medicare Annual Wellness Outpatient Referral Routine Expected: 02/13/2024 (Approximate), Expires: 05/13/2024 documented as of this encounter Goals Goal Patient Goal Type Associated Problems Recent Progress Patient-Stated? Author Patient/caregiver will be independent in managing appointments General Shital Asif, RBronwynNBronwyn Note: Patient to follow up with orthopedics regarding knee pain. documented as of this encounter Visit Diagnoses Diagnosis Annual Medicare Examination Return- Primary documented in this encounter Additional Health Concerns Assessment Noted Time PHQ-9 Depression Total Score: 3 02/11/19 24 12:10 PM MOVIE EXTRA documented as of this encounter Care Teams President [employer] Relationship Specialty Start Date End Date Annie Wu M.D. [address] [phone] PCP - General 07/24/16 [facility] Accounts Payable Payroll Coordinator 02/12/23 [facility] 02/12/23 [facility] Accounts Receivable Bookkeeper 02/12/23 documented as of this encounter
--- OUTSIDE RECORDS SUMMARY | 2023-02-25 10:17 | XMS_ITS | Encounter Summary ---
Author Name Unknown Organization [facility] Address [address] [place] [address] Care Team Providers Care Tactical/Mobile Watch Officer Name Role Phone Annie Wu M.D. Primary Care Pro vider Reason for Visit * Reason Comments Med Refill Encounter Details Date Type Department Care Team (Late st Contact Info) Description 01/26/2023 Refill Department of Family Medicine, [facility], in [address] [phone] Annie Wu M.D. [address] [place] [phone] Med Refill Social History Tobacco Use Types Packs/Day Years Used Date Smoking Tobacco: Never Smokeless Tobacco: Never Alcohol Use Standard Drinks/Week Comments No 0 (1 standard drink = 0.6 oz pur e alcohol) Humiliation, Afraid, Rape, and Kick questionnair e [...] 05/02/2022 How often do you attend chur or zoroastrianism services? More than 4 times per year 05/02/2022 Do you belong to any clubs o r organizations such as scientology groups, unions, fraternal or athletic groups, or [...] 05/02/2022 PHQ-2 Answer Date Recorded PHQ-2 Score 3 02/11/2022 [facility] - Occupational Stress Questionnaire Answer Date Recorded [...] Recor ded PHQ-9 Total Score (max 27) 9 02/11 Nutrition Answer Date Recorded Nutrition: EVOO [...] Sex Assigned at Female 04/12/2021 7:31 PM BARRELHEAD INSPECTOR Gender Identity Female 04/12/2021 7:31 PM BARRELHEAD INSPECTOR Sexual Orientation Straight 04/12/2021 7: 31 PM BARRELHEAD INSPECTOR documented as of this encounter Miscellaneous Notes * Telephone Encounter - Rosi Cordon - 01/27/2023 7:15 AM CST Lab Results Component Value Date TSH 1.2 02/25/2022 ELHEAD INSPECTOR documented in this encounter Plan of Treatment Upcoming Encounters Date Type Department Care Team (Latest Contact Info) Description 05/08/2023 12:00 PM CDT Clinical Communication Virtual Review in [place], [place] [address] [place] [address] 05/11/2023 10:30 AM CDT Appointment Department of Radiology in [address] [phone] Neptali Henning M.D. [address] [place] [phone] Discharge Disposition: Home or Self Care 05/11/2023 12:40 PM CDT Appointment Department of Radiology, [facility] in [address] [phone] Neptali Henning M.D. [address] [place] [phone] Discharge Disposition: Home or Self Care 05/11/2023 3:30 PM CDT Office Visit Breast Diagnostic Clinic in [address] [phone] Neptali Henning M.D. [address] [place] [phone] documented as of this encounter Goals Goal Patient Goal Type Associated Problems Recent Progress Patient-Stated? Author Patient/caregiver will be independent in managing appointments Shital Murray, RBronwynNBronwyn Note: Patient to follow up with orthopedics regarding knee pain. documented as of this encounter Visit Diagnoses Not on filedocumented in this encounter Additional Health Concerns Assessment Noted Time PHQ-9 Depression Total Score: 9 02/11/19 23 9:15 AM BARRELHEAD INSPECTOR documented as of this encounter Care Teams Tactical/Mobile Watch Officer Relationship Specialty Start Date End Date Annie Wu M.D. [address] [place] [phone] PCP - General 07/24/16 documented as of this encounter
--- OUTSIDE RECORDS SUMMARY | 2023-02-25 10:17 | XMS_ITS | Encounter Summary ---
Author Name Unknown Organization [facility] Address [address] [place] [address] Care Team Providers Care Reactor Fueling Supervisor Name Role Phone Annie Wu M.D. Primary Care Pro vider Reason for Referral * Outpatient (Routine) - Closed Specialty Diagnoses / Procedures Referred By Josefina gauthier Referred To Contact Diagnoses Intraductal Carcinoma In Situ Of Left Breast Procedures BI Breast Diagnostic Left with Tomosynthesis Neptali Henning M.D. [address] [place] [address] [facility] Referral ID Status Reason Start Date Expiration Date Visits Re quested Visits Authorized [id number] Closed 11/01/2021 11/01/2022 1 1 Reason for Visit * Outpatient (Routine) - Closed Specialty Diagnoses / Procedures Referred By Josefina gauthier Referred To Contact Diagnoses Intraductal Carcinoma In Situ Of Left Breast Procedures BI Breast Diagnostic Left with TomosyntheNeptali Henao M.D. [address] [place] [address] [facility] Referral ID Status Reason Start Date Expiration Date Visits Re quested Visits Authorized [id number] Closed 11/01/2021 11/01/2022 1 1 Encounter Details Date Type Department Care Team (Latest Contact Info) Description 05/07/2022 9:45 AM CDT - 05/07/2022 10:48 AM CDT Hospital Encounter Department of Radiology in [place], [place] [address] [place] [phone] Neptali Henning M.D. [address] [place] [address] Intraductal Carcinoma In Situ Of Left Breast Discharge Disposition: Home or Self Care Social [...] How often do you attend chur or anglican services? More than 4 times per year 05/02/2022 Do you belong to any clubs o r organizations such as synagogue groups, unions, fraternal or athletic groups, or [...] Answer Date Recorded PHQ-2 Score 3 02/11/2022 [facility] [place] [facility] - Occupational Stress [...] place to sleep or slept in a detention (including now)? No 05/02/2022 Depression Answer Date [...] Sex Assigned at Female 04/12/2021 7:31 PM BREAKDOWN MAN Gender Identity Female 04/12/2021 7:31 PM BREAKDOWN MAN Sexual Orientation Straight 04/12/2021 7: 31 PM BREAKDOWN MAN documented as of this encounter Medications at Time of Discharge Medication Sig Dispensed Refills Start Date End Date acetaminophen (TYLENOL) 500 mg tablet Take 2 tablets (1,000 mg total) by mouth every 6 (six) hours as needed for pain. 100 tablet 0 01/17/[address] tablet Take 81 mg by mouth daily. 0 benazepriL (LOTENSIN) 10 mg tablet Take 1 tablet (10 mg total) by mouth daily. 90 tablet 3 02/11/2022 HACENDF-ASPWSWDCX-GBTX ORAL Take 1 tablet by mouth daily. 0 cholecalciferol (for_VITAMIN D3) 1,000 Unit tablet Take 1 tablet by mouth daily. 0 11/14/2012 citalopram (CeleXA) 10 mg tablet Take 1 tablet (10 mg total) by mouth daily. 90 tablet 3 02/11/2022 cyanocobalamin (for_VITAMIN B12) 1,000 mcg tablet Take 1 tablet by mouth daily. 0 04/09/2010 DOCOSAHEXANOIC ACID/EPA (FISH OIL ORAL) Take 1 capsule by mouth daily. 0 04/09/2010 FLAXSEED OIL ORAL Take 1 capsule by mouth daily. 0 melatonin 5 mg tablet Take 5 mg by mouth at bedtime. 0 MULTIVITAMIN ORAL Take by mouth daily. 0 04/09/2010 traZODone (DESYREL) 100 mg tablet Take 1 tablet (100 mg total) by mouth at bedtime. 90 tablet 3 02/11/2022 atorvastatin (LIPITOR) 20 mg tablet TAKE 1 TABLET BY MOUTH DAILY 90 tablet 3 11/19/2021 11/25/2022 levothyroxine (SYNTHROID, LEVOTHROID) 125 mcg tablet TAKE 1 TABLET(125 MCG) BY MOUTH DAILY 90 tablet 2 05/01/2022 01/27/2023 metFORMIN (GLUCOPHAGE) 1,000 mg tablet TAKE 1 TABLET(1000 MG) BY MOUTH TWICE DAILY WITH MEALS 180 tablet 3 11/27/2021 11/25/2022 documented as of this encounter Plan of Treatment Upcoming Encounters Date Type Department Care Team (Latest Contact Info) Description 05/08/2023 12:00 PM CDT Clinical Communication Virtual Review in [place], [place] [address] [place] [address] 05/11/2023 10:30 AM CDT Appointment Department of Radiology in [address] [phone] Neptali Henning M.D. [address] [place] [phone] Discharge Disposition: Home or Self Care 05/11/2023 12:40 PM CDT Appointment Department of Radiology, [facility] in [place], [place] [address] [place] [phone] Neptali Henning M.D. [address] [place] [phone] Discharge Disposition: Home or Self Care 05/11/2023 3:30 PM CDT Office Visit Breast Diagnostic Clinic in [place], [place] [address] [place] [phone] Neptali Henning M.D. [address] [place] [phone] documented as of this encounter Goals Goal Patient Goal Type Associated Problems Recent Progress Patient-Stated? Author Patient/caregiver will be independent in managing appointments General Shital Asif, RBronwynNBronwyn Note: Patient to follow up with orthopedics regarding knee pain. documented as of this encounter Procedures Procedure Name Priority Date/Time Associated Diagnosis Comments BI BREAST DIAGNOSTIC LEFT WITH TOMOSYNTHESIS RAD - Routine (most inpatients and all outpatients) 05/07/2022 10:37 AM CDT Intraductal Carcinoma In Situ Of Left Breast documented in this encounter Results * (ABNORMAL) BI Breast Diagnostic Left with Tomosynthesis (05/07/2022 10:37 AM CDT) Anatomical Region Laterality Modality Breast, Breast Imaging RST L OS, Breast Imaging ARZ LOS, Breast Imaging FLA LOS Left Mammography 05/07/2022 11:4 6 AM CDT Impressions 05/07/2022 12:10 PM CDT No significant change in the area of known left breast malignancy since the mammogram dated 11/01/2021 and the ultrasound dated 04/17/2021. RECOMMENDATION: ??Clinical Management Continuing ongoing clinical management of left breast malignancy with imaging follow-up as indicated. ASSESSMENT: ??BI-RADS: 6: Known Biopsy-Proven Malignancy. Narrative 05/07/2022 12:10 PM CDT EXAM: ??BI BREAST DIAGNOSTIC LEFT WITH TOMOSYNTHESIS, BI ULTRASOUND BREAST FOCUSED LEFT INDICATION: ??Short term interval follow-up. Follow-up left breast cancer being treated with endocrine therapy. COMPARISON: ??Prior exam(s) were available and reviewed for comparison. DENSITY: ??b. There are scattered areas of fibroglandular density. FINDINGS: ?? Diagnostic full field tomosynthesis performed of the left breast. Ribbon-shaped biopsy clip marking patient's known malignancy in the left central breast anterior depth is adjacent to a benign calcified lipid cyst, and is otherwise MR mammographically occult. Multiple benign lipid cysts. Targeted ultrasound at 4:00 subareolar left breast is similar in appearance to the prior ultrasound dated 04/17/2021. Redemonstrated benign calcified lipid cyst and adjacent ribbon clip without a separate discrete mass at the site of known malignancy, similar to the prior study. Neptali DU BI PROCEDURES documented in this encounter Visit Diagnoses Diagnosis Intraductal Carcinoma In Situ Of Left Breast documented in this encounter Additional Health Concerns Assessment Noted Time PHQ-9 Depression Total Score: 9 02/11/19 23 9:15 AM BREAKDOWN MAN documented as of this encounter Care Teams Reactor Fueling Supervisor Relationship Specialty Start Date End Date Annie Wu M.D. [id number] [phone] PCP - General 07/24/16 documented as of this encounter
--- OUTSIDE RECORDS SUMMARY | 2023-02-25 10:17 | XMS_ITS | Encounter Summary ---
Author Name Unknown Organization [facility] Address [address] [place] [address] Care Team Providers Care Senior Principal Name Role Phone Annie Wu M.D. Primary Care Pro vider Reason for Visit * Reason Comments Pre-op Exam Cataract surgery [facility] 02/25 right eye, 03/11 left eye * Appointment Request (Routine) - Closed Specialty Diagnoses / Procedures Referred By Josefina gauthier Referred To Contact Family Medicine Referral ID Status Reason Start Date Expiration Date Visits Re quested Visits Authorized [id number] Closed 01/27/2023 01/27/2024 1 1 Encounter Details Date Type Department Care Team (Late st Contact Info) Description 02/12/2023 11:30 AM FLIGHT KITCHEN MANAGER Office Visit Department of Family Medicine, [facility], in [address] [phone] Sarah Diaz APRN, C.N.P., D.N.P. [address] [place] [phone] Hypertension Essential Primary (Primary Dx); Preoperative Exam; Cataract; Malignant Neoplasm Of Breast Female Left (HCC); Diabetes Mellitus Type 2 Without Complication (HCC); Hypothyroidism; Hyperlipidemia; History Of Falling Discharge Disposition: Home or Self Care Social History Tobacco Use Types Packs/Day Years Used Date Smoking Tobacco: Never Smokeless Tobacco: Never Alcohol Use Standard Drinks/Week Comments No 0 (1 standard drink = 0.6 oz pur e alcohol) [facility] Utilities Answer Date Recorded In the past 12 months has th e electric, gas, oil, or water company threatened to shut off services in your [...] often do you attend chur ch or mu-ism services? More than 4 times per year 05/02/2022 Do you belong to any clubs o r organizations such as bahai groups, unions, fraternal or athletic groups, or [...] Answer Date Recorded PHQ-2 Score 0 02/11/2023 [place] [place] [facility] Answer Date [...] money to buy more. Never true 05/03/19 Within the past 12 months, t he [...] place to sleep or slept in a prison (including now)? No 05/02/2022 Depression Answer Date [...] Sex Assigned at Female 04/12/2021 7:31 PM FLIGHT KITCHEN MANAGER Gender Identity Female 04/12/2021 7:31 PM FLIGHT KITCHEN MANAGER Sexual Orientation Straight 04/12/2021 7: 31 PM FLIGHT KITCHEN MANAGER documented as of this encounter Last Filed Vital Signs Vital Sign Reading Time Taken Comments Blood Pressure 101/68 02/12/2023 11:19 AM FLIGHT KITCHEN MANAGER Pulse 80 02/12/2023 11:19 AM FLIGHT KITCHEN MANAGER Temperature 37.1 ??C (98.8 ??F) 02/12/2023 11:[address] Respiratory Rate 20 02/12/2023 11:19 AM FLIGHT KITCHEN MANAGER Oxygen Saturation 95% 02/12/2023 11:19 AM FLIGHT KITCHEN MANAGER Inhaled Oxygen Concentration - - Weight 69.2 kg (152 lb 8.9 oz) 02/12/2023 11:19 AM FLIGHT KITCHEN MANAGER Height 163.4 cm (5' 4.33) 02/12/2023 11:[address] Body Mass Index 25.92 02/12/2023 11:19 AM FLIGHT KITCHEN MANAGER documented in this encounter H&P Notes * Sarah Diaz, VENANCIO, C.N.P., D.N.P. - 02/12/2023 11:30 AM CST PREOPERATIVE CONSULTATION Zena Gray [phone] DATE OF SURGERY: February 25 for right eye March 11 for left eye DATE OF EXAM: 02/12/23. TYPE OF SURGERY: Cataract surgery SUBJECTIVE CHIEF COMPLAINT/REASON FOR VISIT Preoperative consultation. HISTORY OF PRESENT ILLNESS Zena Gray is a pleasant 82 y.o. female, with a history of hypothyroidism, type 2 diabetes,breast cancer on letrozole, hypertension, that presents to the clinic today for comprehensive preoperative exam. Procedure is: Low Risk (cardiac risk >1%): Superficial procedures, endoscopy, cataracts, breast surgery RISK STRATIFICATION: Functional Status: Functional Class II: Able to perform 5-7 METS (walk > 4 blocks or climb over 2 flights without cardiac or pulmonary Sx) REVIEW OF SYSTEMS There is no history of difficulty with anesthesia, bleeding tendencies, blood clots, congestive heart failure, heart valve disease, heart arrhythmias, chest pain or dyspnea. The patient is able to climb a flight of stairs without any chest pain, dyspnea or extreme fatigue. Patient denies any recentillness. No fevers or signs of upper respiratory tract infection. Review of systems is otherwise negative with the exceptions of the positives/negatives listed above. OBJECTIVE VITAL SIGNS Vitals: 02/12/23 1119 BP: 101/68 Pulse: 80 Resp: 20 Temp: 37.1 ??C SpO2: 95% Stop Bang (KETAN) Total Score: PHYSICAL EXAMINATION General: Awake, alert and oriented x3, comfortable. Affect normal. HEENT: Pupils equal, round, reactive to light. Extraocular movements intact. Conjunctivae not injected. External auditory canals are clear. Nasopharynx without erythema. No tonsillar hypertrophy or exudate. Mucous membranes are moist. Dentition and gums intact. Neck supple without lymphadenopathy. M allampati Score III. Heart: Regular rate and rhythm. No murmurs, gallops or rubs. Lungs: Clear to auscultation bilaterally. Abdomen: Positive bowel sounds in all 4 quadrants. Soft, nondistended, nontender. No masses. Extremities: Warm and well perfused. No cyanosis or edema. Skin: No erythema or rashes. No open sores or ulcers. ASSESSMENT / PLAN #1 Preoperative Exam Blood work and EKG is within normal limits today. This patient has been deemed to be medically acceptable for the planned surgery/procedure. History of Heart Disease: None. History of Lung Disease: None. Stop Bang Total Score: . Other Risk Factors: Sleep apnea, advised to bring CPAP device to recovery.. #2 Cataract Proceed with planned procedure. #3 Hypertension Essential Primary Blood pressure well controlled today. Continue on current medication regimen. #4 Malignant Neoplasm Of Breast Female Left (HCC) Follows with breast Oncology, recommend continuing with letrozole. #5 Diabetes Mellitus Type 2 Without Complication (HCC) A1c is well controlled at 6.2%. Continue on current medication regimen and follow up with primary care provider in six months. #6 Hypothyroidism TSH is suppressed, recommend decreasing down levothyroxine to 112 mcg daily and rechecking thyroid in three months. #7 Hyperlipidemia Cholesterol is well controlled. Preoperative instructions discussed and understanding indicated: Follow all preop hospital/center instructions. If Taking Aspirin/NSAIDs: Stop aspirin/NSAIDs 1 week before procedure and resume 1 day after theprocedure unless instructed otherwise. If Taking Any Anticoagulants: Stop other anticoagulants per instructions of hospital/center or, if no instructions provided, stop anticoagulants 5 days before procedure and resume 1 day after the procedure unless instructed otherwise. If Taking Oral Diabetes Medications: Hold on the day of the procedure and resume 1 day after theprocedure unless instructed otherwise. If Taking LAUREANO Inhibitor or ARB (Lisinopril or Losartan): Hold LAUREANO inhibitor/ARB/Diuretic on the day of the procedure and resume 1 day after the procedure unless instructed otherwise. If Taking a Diuretic (Lasix, Hydrochlorothiazide or spironolactone): Please hold the on the day of the procedure and resume 1 day after the procedure unless instructed otherwise. If Taking Insulin: Hold basal insulin on the day of the procedure and resume once eating. If Taking Supplements: Stop all supplements 1 week prior to procedure and may resume 1 day afterthe procedure unless instructed otherwise. If Taking DMARDs as Part of Medication Regimen: - hydrochloroquine can be continued uninterrupted. - methotrexate should be held for 2 wks prior if low Creatinine Clearance. - methotrexate can be continued weekly if normal Creatinine Clearance. - azathioprine and sulfasalazine should be held for 1 week prior. If Taking Allopurinol: Hold allopurinol on the day of the procedure and resume the following dayunless instructed otherwise. Patient was instructed to follow up in primary care with concerns. Plan was discussed with patient and is in agreement with plan. All questions were answered. Side effects of any/all new medications were discussed. Patient left in no acute distress. PATIENT EDUCATION: Ready to learn. No apparent learning barriers were identified. Learning preferences include listening. Explained diagnosis and treatment plan. Patient/Child/Caregiver expressed understanding of the content. Total Time: 32 minutes. Sarah Diaz APRN, C.N.P., D.N.P. HT KITCHEN MANAGER documented in this encounter Miscellaneous Notes * Addendum Note - Sarah Diaz APRN, C.N.P., D.N.P. - 02/12/2023 11:30 AM CSTAddended by: SARAH DIAZ on: 02/12/2023 01:08 PM Modules accepted: Level of Service HT KITCHEN MANAGER documented in this encounter Plan of Treatment Upcoming Encounters Date Type Department Care Team (Latest Contact Info) Description 05/08/2023 12:00 PM CDT Clinical Communication Virtual Review in [place], [place] [address] [place] [address] 05/11/2023 10:30 AM CDT Appointment Department of Radiology in [address] [phone] Neptali Henning M.D. [address] [place] [phone] Discharge Disposition: Home or Self Care 05/11/2023 12:40 PM CDT Appointment Department of Radiology, [facility] in [address] [phone] Neptali Henning M.D. [address] [place] [phone] Discharge Disposition: Home or Self Care 05/11/2023 3:30 PM CDT Office Visit Breast Diagnostic Clinic in [address] [phone] Neptali Henning M.D. [address] [place] [phone] Scheduled Orders Name Type Priority Associated Diagnoses Orde r Schedule S-TSH (Thyroid-Stimulating Hormone - Sensitive) Lab Routine Hypothyroidism Expected: 05/14/2023 (Approximate), Expires: 05/13/2024 documented as of this encounter Goals Goal Patient Goal Type Associated Problems Recent Progress Patient-Stated? Author Patient/caregiver will be independent in managing appointments General No Shitla Gonzalez, RBronwynNBronwyn Note: Patient to follow up with orthopedics regarding knee pain. documented as of this encounter Procedures Procedure Name Priority Date/Time Associated Diagnosis Comments ALBUMIN, RANDOM, U Routine 02/12/2023 12 :00 PM FLIGHT KITCHEN MANAGER Diabetes Mellitus Type 2 Without Complication (HCC) LIPID PANEL, S Routine 02/12/2023 11:51 AM FLIGHT KITCHEN MANAGER Hyperlipidemia THYROID-STIMULATING HORMONE-SENSITIVE (S-TSH) Routine 02/12/2023 11:51 AM FLIGHT KITCHEN MANAGER Hypothyroidism HEMOGLOBIN A1C, B Routine 02/12/2023 11: 51 AM FLIGHT KITCHEN MANAGER Diabetes Mellitus Type 2 Without Complication (HCC) BASIC METABOLIC PANEL, S/P Routine 02/12/2023 11:51 AM FLIGHT KITCHEN MANAGER Hypertension Essential Primary Diabetes Mellitus Type 2 Without Complication (HCC) documented in this encounter Results * Albumin, Random, Urine (02/12/2023 12:00 PM FLIGHT KITCHEN MANAGER) Microalbumin 22.3 mg/L 02/12/2023 12:17 PM FLIGHT KITCHEN MANAGER CNFL Creatinine 210 mg/dL 02/12/2023 12:17 PM FLIGHT KITCHEN MANAGER CNFL Albumin/Creatinin e Ratio 11 <25 mg/g 02/12/2023 12:17 PM FLIGHT KITCHEN MANAGER CNFL Urine (Urine, Midstream) 02/12/2023 12:00 PM FLIGHT KITCHEN MANAGER 02/12/2023 12:00 PM FLIGHT KITCHEN MANAGER Sarah Diaz APRN, C.N.P., D.N.P. LAB URINE ORDERABLES [facility] [address] [place] [phone], [facility] CNFL [facility] in [address] [address] * (ABNORMAL) Lipid Panel (02/12/2023 11:51 AM FLIGHT KITCHEN MANAGER) Triglycerides 175(H) mg/dL 02/12/2023 12:25 PM FLIGHT KITCHEN MANAGER CNFL Comment: ----REFERENCE VALUE---- Normal: <150 mg/dL Borderline High: 150-199 mg/dL High: 200-499 mg/dL Very High: > or =500 mg/dL Cholesterol, Total 114 mg/dL 2023 12:25 PM FLIGHT KITCHEN MANAGER CNFL Comment: ----REFERENCE VALUE---- Desirable: < 200 mg/dL Borderline High: 200 - 239 mg/dL High: > or = 240 mg/dL Cholesterol, LDL, Calculated 35 mg/dL 02/12/2023 12:25 PM FLIGHT KITCHEN MANAGER CNFL Comment: ----REFERENCE VALUE---- Desirable: <100 mg/dL Above Desirable: 100-129 mg/dL Borderline High: 130-159 mg/dL High: 160-189 mg/dL Very High: >=190 mg/dL ----ADDITIONAL INFORMATION---- LDL cholesterol calculated using the Thomas/NIH equation. Cholesterol, HDL 51 >=50 mg/dL 02/12/19 12:25 PM FLIGHT KITCHEN MANAGER CNFL Cholesterol, Non-HDL, Calculated 63 mg/dL 02/12/2023 12:25 PM FLIGHT KITCHEN MANAGER CNFL Comment: ----REFERENCE VALUE---- Desirable: <130 mg/dL Above Desirable: 130-159 mg/dL Borderline High: 160-189 mg/dL High: 190-219 mg/dL Very High: > or =220 mg/dL Fasting (8 HR or more) No Yes 02/12/2023 12:00 PM FLIGHT KITCHEN MANAGER CNFL Blood (Blood, Venous) 02/12/2023 11:51 AM FLIGHT KITCHEN MANAGER 02/12/2023 12:00 PM FLIGHT KITCHEN MANAGER Sarah Diza APRN C.N.P., D.N.P. LAB BLOOD ADD-ON [facility] [address] [place] [phone], [facility] in [address] [address] * (ABNORMAL) S-TSH (Thyroid-Stimulating Hormone - Sensitive) (02/12/2023 11:51 AM FLIGHT KITCHEN MANAGER) TSH, Sensitive 0.2(L) 0.3 - 4.2 mIU/L 02/12/2023 12:34 PM FLIGHT KITCHEN MANAGER CNFL Blood (Blood, Venous) 02/12/2023 11:51 AM FLIGHT KITCHEN MANAGER 02/12/2023 12:00 PM FLIGHT KITCHEN MANAGER Sarah Phuong Diaz APRN, C.N.P., D.N.P. LAB BLOOD ADD-ON [facility] [address] [place] [phone], [facility] CNFL [facility] [place] [address] * (ABNORMAL) Basic Metabolic Panel (02/12/2023 11:51 AM FLIGHT KITCHEN MANAGER) Potassium, P 4.7 3.6 - 5.2 mmol/L 02/12/2023 12:25 PM FLIGHT KITCHEN MANAGER CNFL Sodium, P 139 135 - 145 mmol/L 02/12/2023 12:25 PM FLIGHT KITCHEN MANAGER CNFL Chloride, P 100 98 - 107 mmol/L 02/12/2023 12:25 PM FLIGHT KITCHEN MANAGER CNFL Bicarbonate, P 30(H) 22 - 29 mmol/L 02/12/2023 12:25 PM FLIGHT KITCHEN MANAGER CNFL Anion Gap, P 9 7 - 15 02/12/2023 12:25 PM FLIGHT KITCHEN MANAGER CNFL BUN (Blood Urea Nitrogen), P 20 6 - 21 mg/dL 02/12/2023 12:25 PM FLIGHT KITCHEN MANAGER CNFL Creatinine 0.69 0.59 - 1.04 mg/dL 02/12/2023 12:25 PM FLIGHT KITCHEN MANAGER CNFL Estimated GFR (eGFR) 86 >=60 mL/min/BSA 02/12/2023 12:25 PM FLIGHT KITCHEN MANAGER CNFL Comment: Estimated GFR calculated using the 2020 CKD_EPI creatinine equation. Calcium, Total, P 10.7(H) 8.8 - 10.2 mg/dL 02/12/2023 12:25 PM FLIGHT KITCHEN MANAGER CNFL Glucose, P 143(H) 70 - 140 mg/dL 02/12/2023 12:25 PM FLIGHT KITCHEN MANAGER CNFL Blood (Blood, Venous) 02/12/2023 11:51 AM FLIGHT KITCHEN MANAGER 02/12/2023 12:00 PM FLIGHT KITCHEN MANAGER Sarah Diaz APRN, C.N.P., D.N.P. LAB BLOOD ADD-ON Performing Organization Address City/[facility] Co de Phone Number [address] [phone], [facility] in [address] [address] * (ABNORMAL) Hemoglobin A1c (02/12/2023 11:51 AM FLIGHT KITCHEN MANAGER) Hemoglobin A1c, B 6.3(H) 4.2 - 5.6 % 02/12/2023 12:14 PM FLIGHT KITCHEN MANAGER [facility] Comment: Hemoglobin A1c values of 5.7-6.4 percent indicate an increased risk for developing diabetes mellitus. In diabetic patients, HbA1c goals should be discussed with healthcare provider. Blood (Blood, Venous) 02/12/2023 11:51 AM FLIGHT KITCHEN MANAGER 02/12/2023 12:00 PM FLIGHT KITCHEN MANAGER Sarah Diaz APRN, C.N.P., D.N.P. LAB BLOOD ADD-ON Performing Organization Address City/[facility] Co de Phone Number [address] [phone], [place] [facility] in [address] [address] documented in this encounter Visit Diagnoses Diagnosis Hypertension Essential Primary- Primary Preoperative Exam Cataract Malignant Neoplasm Of Breast Female Left (HCC) Diabetes Mellitus Type 2 Without Complication (HCC) Hypothyroidism Hyperlipidemia History Of Falling documented in this encounter Additional Health Concerns Assessment Noted Time PHQ-9 Depression Total Score: 3 02/11/19 24 12:10 PM FLIGHT KITCHEN MANAGER documented as of this encounter Care Teams Senior Principal Relationship Specialty Start Date End Date Annie Wu M.D. [address] [place] [phone] PCP - General 07/24/16 [facility] Oil Lease Operator 02/12/23 Jevon Dental Dentist 02/12/23 Jodi Hearing Bottomer Operator 02/12/23 documented as of this encounter
--- OUTSIDE RECORDS SUMMARY | 2023-02-25 10:17 | XMS_ITS | Encounter Summary ---
Author Name Unknown Organization [facility] Address [address] [place] [address] Care Team Providers Care Visual Education Teacher Name Role Phone Annie Wu M.D. Primary Care Pro vider Encounter Details Date Type Department Care Team (Late st Contact Info) Description 02/10/2023 [facility] Only [facility] M.[facility] [address] [place] [phone] Monitoring For Therapeutic Drug Therapy; Hypothyroidism Social History Tobacco Use Types Packs/Day Years [...] often do you attend chur ch or moravian services? More than 4 times per year 05/02/2022 Do you belong to any clubs o r organizations such as taoism groups, unions, fraternal or athletic groups, or [...] Answer Date Recorded PHQ-2 Score 0 02/11/2023 [facility] - Occupational Stress [...] place to sleep or slept in a assisted (including now)? No 05/02/2022 Depression Answer Date [...] Sex Assigned at Female 04/12/2021 7:31 PM TANK REFINISHER Gender Identity Female 04/12/2021 7:31 PM TANK REFINISHER Sexual Orientation Straight 04/12/2021 7: 31 PM TANK REFINISHER documented as of this encounter Plan of Treatment Upcoming Encounters Date Type Department Care Team (Latest Contact Info) Description 05/08/2023 12:00 PM CDT Clinical Communication Virtual Review in [place], [place] 200 [place] [address] 05/11/2023 10:30 AM CDT Appointment Department of Radiology in [place], [place] [address] [place] [phone] Neptali Henning M.D. [address] [place] [phone] Discharge Disposition: Home or Self Care 05/11/2023 12:40 PM CDT Appointment Department of Radiology, [facility], in [place], [place] [address] [place] [address] Neptali Henning M.D. [address] [place] [address] Discharge Disposition: Home or Self Care 05/11/2023 3:30 PM CDT Office Visit Breast Diagnostic Clinic in [place], [place] [address] [place] [address] Neptali Henning M.D. [address] [place] [address] documented as of this encounter Goals Goal Patient Goal Type Associated Problems Recent Progress Patient-Stated? Author Patient/caregiver will be independent in managing appointments Shital Murray, RBronwynNBronwyn Note: Patient to follow up with orthopedics regarding knee pain. documented as of this encounter Visit Diagnoses Diagnosis Monitoring For Therapeutic Drug Therapy Hypothyroidism documented in this encounter Additional Health Concerns Assessment Noted Time PHQ-9 Depression Total Score: 9 02/11/19 23 9:15 AM TANK REFINISHER documented as of this encounter Care Teams Visual Education Teacher Relationship Specialty Start Date End Date Annie Wu M.D. [address] [phone] PCP - General 07/24/16 documented as of this encounter
--- OUTSIDE RECORDS SUMMARY | 2023-02-25 10:17 | XMS_ITS | Encounter Summary ---
Author Name Unknown Organization [facility] Address [address] [place] [address] Care Team Providers Care Commercial Subcontractor Name Role Phone Annie Wu M.D. Primary Care Pro vider Reason for Visit * Reason Comments Med Refill Encounter Details Date Type Department Care Team (Late st Contact Info) Description 05/01/2022 Refill Department of Family Medicine, [facility], in [address] [phone] Ivory Polanco M.D. [address] [place] [phone] Med Refill Social History Tobacco Use Types [...] How often do you attend chur or yarsanism services? More than 4 times per year 05/02/2022 Do you belong to any clubs o r organizations such as restorationism groups, unions, fraternal or athletic groups, or [...] Answer Date Recorded PHQ-2 Score 3 02/11/2022 [facility] Questionnaire Answer Date [...] place to sleep or slept in a halfway (including now)? No 05/02/2022 Depression Answer Date [...] Sex Assigned at Female 04/12/2021 7:31 PM CORRECTIONAL THERAPY TEACHER Gender Identity Female 04/12/2021 7:31 PM CORRECTIONAL THERAPY TEACHER Sexual Orientation Straight 04/12/2021 7: 31 PM CORRECTIONAL THERAPY TEACHER documented as of this encounter Miscellaneous Notes * Telephone Encounter - Lia Sanders - 05/01/2022 8:36 AM CDT Lab Results Component Value Date TSH 1.2 02/25/2022 documented in this encounter Plan of Treatment Upcoming Encounters Date Type Department Care Team (Latest Contact Info) Description 05/08/2023 12:00 PM CDT Clinical Communication Virtual Review in [place], [place] 200 [place] [address] 05/11/2023 10:30 AM CDT Appointment Department of Radiology in [place], [place] [address] [place] [phone] Neptali Henning M.D. [address] [place] [phone] Discharge Disposition: Home or Self Care 05/11/2023 12:40 PM CDT Appointment Department of Radiology, [facility], in [place], [place] [address] [place] [phone] Neptali Henning M.D. [address] [place] [phone] Discharge Disposition: Home or Self Care 05/11/2023 3:30 PM CDT Office Visit Breast Diagnostic Clinic in [address] [phone] Neptali Henning M.D. [address] [place] [phone] documented as of this encounter Goals Goal [...] Total Score: 9 02/11/19 23 9:15 AM CORRECTIONAL THERAPY TEACHER documented as of this encounter Care Teams Commercial Subcontractor Relationship Specialty Start Date End Date Annie Wu M.D. [address] [phone] PCP - General 07/24/16 documented as of this encounter
--- OUTSIDE RECORDS SUMMARY | 2023-02-25 10:17 | XMS_ITS | Encounter Summary ---
Author Name Unknown Organization [facility] Address [address] [place] [address] Care Team Providers Care Launderette Attendant Name Role Phone Annie Wu M.D. Primary Care Pro vider Reason for Referral * Outpatient (Routine) - Closed Specialty Diagnoses / Procedures Referred By Josefina gauthier Referred To Contact Diagnoses Intraductal Carcinoma In Situ Of Left Breast Procedures BI Ultrasound Breast Focused Left Neptali Henning M.D. 200 [place] [address] [facility] Referral ID Status Reason Start Date Expiration Date Visits Re quested Visits Authorized [id number] Closed 05/07/2022 05/07/2023 1 1 Reason for Visit * Outpatient (Routine) - Closed Specialty Diagnoses / Procedures Referred By Josefina gauthier Referred To Contact Diagnoses Intraductal Carcinoma In Situ Of Left Breast Procedures BI Ultrasound Breast Focused Left Neptali Henning M.D. 200 [place] [address] [facility] Referral ID Status Reason Start Date Expiration Date Visits Re quested Visits Authorized [id number] Closed 05/07/2022 05/07/2023 1 1 Encounter Details Date Type Department Care Team (Latest Contact Info) Description 05/07/2022 10:49 AM CDT - 05/07/2022 12:02 PM CDT Hospital Encounter Department of Radiology in [place], [place] [address] [place] [address] Neptali Henning M.D. 200 [place] [address] Intraductal Carcinoma In Situ Of Left Breast [...] often do you attend chur ch or restorationism services? More than 4 times per year 05/02/2022 Do you belong to any clubs o r organizations such as mandaen groups, unions, fraternal or athletic groups, or [...] Answer Date Recorded PHQ-2 Score 3 02/11/2022 [facility] - Occupational Stress Questionnaire Answer Date Recorded [...] place to sleep or slept in a custodial (including now)? No 05/02/2022 Depression Answer Date [...] Sex Assigned at Female 04/12/2021 7:31 PM GLASSWARE FINISHER Gender Identity Female 04/12/2021 7:31 PM GLASSWARE FINISHER Sexual Orientation Straight 04/12/2021 7: 31 PM GLASSWARE FINISHER documented as of this encounter Medications at [...] by mouth daily. 90 tablet 3 02/11/2022 [id number] ORAL Take 1 tablet by mouth daily. [...] PM CDT Clinical Communication Virtual Review in [place], [place] 200 [place] [address] 05/11/2023 10:30 AM CDT Appointment Department of Radiology in [address] [phone] Neptali Henning M.D. [address] [place] [phone] Discharge Disposition: Home or Self Care 05/11/2023 12:40 PM CDT Appointment Department of Radiology, [facility] in [address] [phone] Neptali Henning M.D. [address] [place] [phone] Discharge Disposition: Home or Self Care 05/11/2023 3:30 PM CDT Office Visit Breast Diagnostic Clinic in [address] [phone] Neptali Henning M.D. [address] [place] [phone] documented as of this encounter Goals Goal Patient Goal Type Associated Problems Recent Progress Patient-Stated? Author Patient/caregiver will be independent in managing appointments General Shital Asif RBronwynNBronwyn Note: Patient to follow up with orthopedics regarding knee pain. documented as of this encounter Procedures Procedure Name Priority Date/Time Associated Diagnosis Comments BI ULTRASOUND BREAST FOCUSED LEFT RAD - Routine (most inpatients and all outpatients) 05/07/2022 11:45 AM CDT Intraductal Carcinoma In Situ Of Left Breast documented in this encounter Results * (ABNORMAL) BI Ultrasound Breast Focused Left (05/07/2022 11:45 AM CDT) Anatomical Region Laterality Modality Breast, Breast Imaging RST L OS, Breast Imaging ARZ LOS, Breast Imaging FLA LOS Left Ultrasound 05/07/2022 11:4 6 AM CDT Impressions 05/07/2022 [...] Total Score: 9 02/11/19 23 9:15 AM GLASSWARE FINISHER documented as of this encounter Care Teams Launderette Attendant Relationship Specialty Start Date End Date Annie Wu M.D. [address] [phone] PCP - General 07/24/16 documented as of this encounter
--- OUTSIDE RECORDS SUMMARY | 2023-02-25 10:17 | XMS_ITS | Encounter Summary ---
Author Name Unknown Organization [facility] Address [address] [place] [address] Care Team Providers Care Vegetable Harvest Worker Name Role Phone Annie Wu M.D. Primary Care Pro vider Reason for Referral * Outpatient (Routine) - Closed Specialty Diagnoses / Procedures Referred By Josefina gauthier Referred To Contact Annie Wu M.D. [address] [phone] [facility] Referral ID Status Reason Start Date Expiration Date Visits Re quested Visits Authorized [id number] Closed 08/19/2022 08/18/2025 1 1 Scheduling Instructions Nurse AWV Do not schedule prior to due date to ensure insurance coverage Visit: Medicare Annual Wellness Never done. Encounter Details Date Type Department Care Team (Late st Contact Info) Description 08/19/2022 Orders Only [facility] Annie Wu M.D. [id number] [place] [phone] Diabetes Mellitus Type 2 Without Complication (HCC) Social History Tobacco Use Types Packs/Day Years [...] week 05/02/2022 How often do you attend [facility] or judaism services? More than 4 times per year 05/02/2022 Do you belong to any clubs o r organizations such as christian groups, unions, fraternal or athletic groups, or [...] Answer Date Recorded PHQ-2 Score 3 02/11/2022 [facility] - Occupational Stress [...] place to sleep or slept in a longterm (including now)? No 05/02/2022 Depression Answer Date [...] Sex Assigned at Female 04/12/2021 7:31 PM BANQUET CAPTAIN Gender Identity Female 04/12/2021 7:31 PM BANQUET CAPTAIN Sexual Orientation Straight 04/12/2021 7: 31 PM BANQUET CAPTAIN documented as of this encounter Plan of Treatment Upcoming Encounters Date Type Department Care Team (Latest Contact Info) Description 05/08/2023 12:00 PM CDT Clinical Communication Virtual Review in [place], [place] 200 [place] [address] 05/11/2023 10:30 AM CDT Appointment Department of Radiology in [place], [place] [address] [place] [phone] Neptali Henning M.D. [address] [place] [phone] Discharge Disposition: Home or Self Care 05/11/2023 12:40 PM CDT Appointment Department of Radiology, [facility], in [place], [place] [address] [place] [phone] Neptali Henning M.D. [address] [place] [phone] Discharge Disposition: Home or Self Care 05/11/2023 3:30 PM CDT Office Visit Breast Diagnostic Clinic in [address] [phone] Neptali Henning M.D. [address] [place] [phone] Scheduled Referrals Name Type Priority Associated Diagnoses Orde r Schedule Primary Care nurse visit (clinic) - [facility]; Medicare Annual Wellness Outpatient Referral Routine Expected: 09/16/2022, Expires: 02/15/2023 documented as of this encounter Goals Goal Patient Goal Type Associated Problems Recent Progress Patient-Stated? Author Patient/caregiver will be independent in managing appointments General Shital Asif RLeo Note: Patient to follow up with orthopedics regarding knee pain. documented as of this encounter Visit Diagnoses Diagnosis Diabetes Mellitus Type 2 Without Complication (HCC) documented in this encounter Additional Health Concerns Assessment Noted Time PHQ-9 Depression Total Score: 9 02/11/19 23 9:15 AM BANQUET CAPTAIN documented as of this encounter Care Teams Vegetable Harvest Worker Relationship Specialty Start Date End Date Annie Wu M.D. [address] [phone] PCP - General 07/24/16 documented as of this encounter
--- OUTSIDE RECORDS SUMMARY | 2023-02-25 10:17 | XMS_ITS | Encounter Summary ---
Author Name Unknown Organization [facility] Address [address] [place] [address] Care Team Providers Care Managing Partner Name Role Phone Annie Wu M.D. Primary Care Pro vider Reason for Referral * Outpatient (Routine) - Authorized Specialty Diagnoses / Procedures Referred By Contac t Referred To Contact Diagnoses Malignant Neoplasm Of Breast Female Left (HCC) Procedures BMD Bone Density Spine Hips Neptali Henning M.D. 200 [place] [address] [facility] Referral ID Status Reason Start Date Expiration Date V isits Requested Visits Authorized [id number] Authorized 05/07/2022 05/07/2023 1 1 * Outpatient (Routine) - Authorized Specialty Diagnoses / Procedures Referred By Conttanya t Referred To Contact Diagnoses Malignant Neoplasm Of Breast Female Left (HCC) Procedures BI Breast Diagnostic Bilateral with Tomosynthesis Neptali Henning M.D. [address] [place] [address] [facility] Referral ID Status Reason Start Date Expiration Date V isits Requested Visits Authorized [id number] Authorized 05/07/2022 05/07/2023 1 1 Reason for Visit * Reason Comments Establish Care Encounter Details Date Type Department Care Team (Late st Contact Info) Description 05/07/2022 2:30 PM CDT Office Visit Breast Diagnostic Clinic in [place], [place] 200 [place] [address] Neptali Henning M.D. 200 [place] [address] Malignant Neoplasm Of Breast Female Left (HCC) (Primary Dx); Osteopenia Social History Tobacco Use Types Packs/Day Years [...] often do you attend chur ch or buddhism services? More than 4 times per year 05/02/2022 Do you belong to any clubs o r organizations such as christianity groups, unions, fraternal or athletic groups, or [...] Answer Date Recorded PHQ-2 Score 3 02/11/2022 [facility] Occupat ional Health - [...] place to sleep or slept in a senior care (including now)? No 05/02/2022 Depression Answer Date [...] Sex Assigned at Female 04/12/2021 7:31 PM WASTE AND BATTING WASTE CHOPPER Gender Identity Female 04/12/2021 7:31 PM WASTE AND BATTING WASTE CHOPPER Sexual Orientation Straight 04/12/2021 7: 31 PM WASTE AND BATTING WASTE CHOPPER documented as of this encounter Last Filed Vital Signs Vital Sign Reading Time Taken Comments Blood Pressure 104/66 05/07/2022 1:25 PM CDT Pulse 75 05/07/2022 1:25 PM CDT Temperature - - Respiratory Rate - - Oxygen Saturation - - Inhaled Oxygen Concentration - - Weight 70.1 kg (154 lb 10.4 oz) 05/07/2022 1:25 PM CDT Height 161.1 cm (5' 3.43) 05/07/2022 1:25 PM CD T Body Mass Index 27.03 05/07/2022 1:25 PM CDT documented in this encounter Progress Notes * Neptali Henning M.D. - 05/07/2022 2:30 PM CDT SUBJECTIVE CHIEF COMPLAINT / REASON FOR VISIT Six-month breast clinic follow-up in the setting of left breast recurrent cancer. HISTORY OF PRESENT ILLNESS Mrs. Gray is a pleasant 81-year-old female here accompanied by her daughter. 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 She has been on aromatase inhibitor tolerating this well. Imaging study today showed stable findings with no new change. She does not report any new symptoms today. OBJECTIVE EXAM: BI BREAST DIAGNOSTIC LEFT WITH TOMOSYNTHESIS, BI ULTRASOUND BREAST FOCUSED LEFT IMPRESSION: No significant change in the area of known left breast malignancy since the mammogram dated 11/01/2021 and the ultrasound dated 04/17/2021. PHYSICAL EXAM: Constitutional: . No distress. Breast: Breasts are asymmetric with left breast smaller than right, left breast postoperative/radiation changes noted; nipples everted bilaterally with no nipple lesion/discharge. No skin discoloration, skin puckering. No dominant mass on palpation of either breasts. Lymphadenopathy: No cervical, supra/infraclavicular, axillary, and inguinal lymphadenopathy. ASSESSMENT / PLAN #1 Left recurrent breast cancer, grade 2 DCIS ER/CO positive, on endocrine therapy and radiographicsurveillance since February 2020 #2 History of stage I (T1, N0, M0) left breast cancer, 2001 status post lumpectomy, 4 cycles of AC,whole breast radiation and 7 years of endocrine therapy #3 Prophylactic Use Aromatase Inhibitor #4 Osteopenia Discussed clinical breast exam as well as radiographic findings. Breast imaging showed that the left breast DCIS is stable. RECOMMENDATIONS: Breast self-awareness encouraged and the patient is advised to seek medical attention for any breast related concerns. Bilateral diagnostic mammogram next due in April 2023. Annual clinical breast exam next due in April 2023. Continue letrozole 2.5 mg once daily. Refill for one year sent electronically to local pharmacy. Bone density April 2023. Reminder card for her to call three months in advance for scheduling. PATIENT EDUCATION: Ready to learn, no apparent learning barriers were identified; learning preferences include listening. Explained diagnosis and treatment plan; patient expressed understanding of the content. Total visit time greater than 20 minutes, with over 50% spent counseling with the patient and coordination of care activities described above. documented in this encounter Plan of Treatment Upcoming Encounters Date Type Department Care Team (Latest Contact Info) Description 05/08/2023 12:00 PM CDT Clinical Communication Virtual Review in [place], [place] 200 [place] [address] 05/11/2023 10:30 AM CDT Appointment Department of Radiology in [place], [place] [address] [place] [phone] Neptali Henning M.D. [address] [place] [phone] Discharge Disposition: Home or Self Care 05/11/2023 12:40 PM CDT Appointment Department of Radiology, [facility], in [place], [place] [address] [place] [address] Neptali Henning M.D. [address] [place] [address] Discharge Disposition: Home or Self Care 05/11/2023 3:30 PM CDT Office Visit Breast Diagnostic Clinic in [place], [place] [address] [place] [address] Neptali Henning M.D. [address] [place] [address] Scheduled Orders Name Type Priority Associated Diagnoses Order Schedule BI Breast Diagnostic Bilateral with Tomosynthesis Imaging RAD - Routine (most inpatients and all outpatients) Malignant Neoplasm Of Breast Female Left (HCC) Expected: 05/08/2023 (Approximate), Expires: 08/08/2023 BMD Bone Density Spine Hips Imaging RAD - Routine (most inpatients and all outpatients) Malignant Neoplasm Of Breast Female Left (HCC) Expected: 05/08/2023 (Approximate), Expires: 08/08/2023 documented as of this encounter Goals Goal Patient Goal Type Associated Problems Recent Progress Patient-Stated? Author Patient/caregiver will be independent in managing appointments General Shital Asif, RBronwynNBronwyn Note: Patient to follow up with orthopedics regarding knee pain. documented as of this encounter Visit Diagnoses Diagnosis Malignant Neoplasm Of Breast Female Left (HCC)- Primary Osteopenia documented in this encounter Additional Health Concerns Assessment Noted Time PHQ-9 Depression Total Score: 9 02/11/19 23 9:15 AM WASTE AND BATTING WASTE CHOPPER documented as of this encounter Care Teams Managing Partner Relationship Specialty Start Date End Date Annie Wu M.D. [address] [place] [phone] PCP - General 07/24/16 documented as of this encounter
--- OUTSIDE RECORDS SUMMARY | 2023-02-25 10:17 | XMS_ITS | Encounter Summary ---
Author Name Unknown Organization [facility] Address [address] [place] [address] Care Team Providers Care Brake Machine Operator Name Role Phone Annie Wu M.D. Primary Care Pro vider Reason for Visit * Reason Comments Med Refill Encounter Details Date Type Department Care Team (Late st Contact Info) Description 11/25/2022 Refill Department of Family Medicine, [facility], in [address] [phone] Annie Wu M.D. [address] [place] [phone] Med Refill Social History Tobacco Use [...] How often do you attend chur or methodist services? More than 4 times per year 05/02/2022 Do you belong to any clubs o r organizations such as buddhism groups, unions, fraternal or athletic groups, or [...] Answer Date Recorded PHQ-2 Score 3 02/11/2022 [facility] Questionnaire Answer Date Recorded [...] Sex Assigned at Female 04/12/2021 7:31 PM NETWORK SECURITY ARCHITECT Gender Identity Female 04/12/2021 7:31 PM NETWORK SECURITY ARCHITECT Sexual Orientation Straight 04/12/2021 7: 31 PM NETWORK SECURITY ARCHITECT documented as of this encounter Plan of Treatment Upcoming Encounters Date Type Department Care Team (Latest Contact Info) Description 05/08/2023 12:00 PM CDT Clinical Communication Virtual Review in [place], [place] 200 [place] [address] 05/11/2023 10:30 AM CDT Appointment Department of Radiology in [place], [place] [address] [place] [address] Neptali Henning M.D. [address] [place] [address] Discharge Disposition: Home or Self Care 05/11/2023 12:40 PM CDT Appointment Department of Radiology, [facility], in [place], [place] [address] [place] [address] Neptali Henning M.D. [address] [place] [address] Discharge Disposition: Home or Self Care 05/11/2023 3:30 PM CDT Office Visit Breast Diagnostic Clinic in [place], [place] [address] [place] [address] Neptali Henning M.D. [address] [place] [phone] documented as of this encounter Goals Goal Patient Goal Type Associated Problems Recent Progress Patient-Stated? Author Patient/caregiver will be independent in managing appointments General No Shital Gonzalez, RBronwynNBronwyn Note: Patient to follow up with orthopedics regarding knee pain. documented as of this encounter Visit Diagnoses Not on filedocumented in this encounter Additional Health Concerns Assessment Noted Time PHQ-9 Depression Total Score: 9 02/11/19 23 9:15 AM NETWORK SECURITY ARCHITECT documented as of this encounter Care Teams Brake Machine Operator Relationship Specialty Start Date End Date Annie Wu M.D. [address] [phone] PCP - General 07/24/16 documented as of this encounter
--- OUTSIDE RECORDS SUMMARY | 2023-02-25 10:17 | XMS_ITS | Encounter Summary ---
Author Name Unknown Organization [facility] Address [address] [place] [address] Care Team Providers Care Out Of School Hours Care Worker Name Role Phone Annie Wu M.D. Primary Care Pro vider Reason for Visit * Reason Comments Med Refill Encounter Details Date Type Department Care Team (Late st Contact Info) Description 08/13/2022 Refill Department of Family Medicine, [facility], in [address] [phone] Annie Wu M.D. [address] [place] [phone] Med Refill Social History Tobacco Use [...] How often do you attend chur or restorationism services? More than 4 times per year 05/02/2022 Do you belong to any clubs o r organizations such as anabaptism groups, unions, fraternal or athletic groups, or [...] Answer Date Recorded PHQ-2 Score 3 02/11/2022 [facility] Questionnaire Answer Date [...] Sex Assigned at Female 04/12/2021 7:31 PM JOURNALISM TEACHER Gender Identity Female 04/12/2021 7:31 PM JOURNALISM TEACHER Sexual Orientation Straight 04/12/2021 7: 31 PM JOURNALISM TEACHER documented as of this encounter Miscellaneous Notes * Telephone Encounter - Alma Payton - 08/14/2022 9:45 AM CDT Should have refill(s) remaining from 02/11/22 RX of 90 tabs/3 refills e-scribed to [facility]. documented in this encounter Plan of Treatment Upcoming Encounters Date Type Department Care Team (Latest Contact Info) Description 05/08/2023 12:00 PM CDT Clinical Communication Virtual Review in [place], [place] [address] [place] [address] 05/11/2023 10:30 AM CDT Appointment Department of Radiology in [place], [place] [address] [place] [phone] Neptali Henning M.D. [address] [place] [phone] Discharge Disposition: Home or Self Care 05/11/2023 12:40 PM CDT Appointment Department of Radiology, [facility] in [place], [place] [address] [place] [phone] Neptali Henning M.D. [address] [place] [phone] Discharge Disposition: Home or Self Care 05/11/2023 3:30 PM CDT Office Visit [facility] Clinic in [address] [phone] Neptali Henning M.D. [address] [place] [phone] documented as of this encounter Goals Goal [...] Total Score: 9 02/11/19 23 9:15 AM JOURNALISM TEACHER documented as of this encounter Care Teams Out Of School Hours Care Worker Relationship Specialty Start Date End Date Annie Wu M.D. [address] [place] [phone] PCP - General 07/24/16 documented as of this encounter
--- OUTSIDE RECORDS SUMMARY | 2023-02-25 10:17 | XMS_ITS | Encounter Summary ---
Author Name Unknown Organization [facility] Address [address] [place] [address] Care Team Providers Care Certified Welder Name Role Phone Annie Wu M.D. Primary Care Pro vider Reason for Visit * Reason Comments Med Refill Encounter Details Date Type Department Care Team (Late st Contact Info) Description 11/24/2022 Refill Department of Family Medicine, [facility], in [address] [phone] Annie Wu M.D. [address] [place] [phone] Med Refill Social History Tobacco Use [...] How often do you attend chur or congregation services? More than 4 times per year 05/02/2022 Do you belong to any clubs o r organizations such as faith groups, unions, fraternal or athletic groups, or [...] Answer Date Recorded PHQ-2 Score 3 02/11/2022 [facility]ational [facility] Questionnaire Answer Date Recorded [...] place to sleep or slept in a intermediate (including now)? No 05/02/2022 Depression Answer Date [...] Sex Assigned at Female 04/12/2021 7:31 PM TECHNOLOGY APPLICATIONS ENGINEER Gender Identity Female 04/12/2021 7:31 PM TECHNOLOGY APPLICATIONS ENGINEER Sexual Orientation Straight 04/12/2021 7: 31 PM TECHNOLOGY APPLICATIONS ENGINEER documented as of this encounter Plan of Treatment Upcoming Encounters Date Type Department Care Team (Latest Contact Info) Description 05/08/2023 12:00 PM CDT Clinical Communication Virtual Review in [place], [place] [address] [place] [address] 05/11/2023 10:30 AM CDT Appointment Department of Radiology in [place], [place] [address] [place] [address] Neptali Henning M.D. [address] [place] [address] Discharge Disposition: Home or Self Care 05/11/2023 12:40 PM CDT Appointment Department of Radiology, [facility], in [place], [place] [address] [place] [address] Neptali Henning M.D. [address] [place] [phone] Discharge Disposition: Home or Self Care 05/11/2023 3:30 PM CDT Office Visit [facility] Clinic in [place], [place] [address] [place] [address] Neptali Henning M.D. [address] [place] [phone] documented as of this encounter Goals Goal [...] Total Score: 9 02/11/19 23 9:15 AM TECHNOLOGY APPLICATIONS ENGINEER documented as of this encounter Care Teams Certified Welder Relationship Specialty Start Date End Date Annie Wu M.D. [address] [phone] PCP - General 07/24/16 documented as of this encounter
--- OUTSIDE RECORDS SUMMARY | 2023-02-25 10:17 | XMS_ITS | Encounter Summary ---
Author Name Unknown Organization [facility] Address [address] [place] [address] Care Team Providers Care Gi Tech Name Role Phone Annie Wu M.D. Primary Care Pro vider Reason for Referral * Outpatient (Routine) - Closed Specialty Diagnoses / Procedures Referred By Contac t Referred To Contact Diagnoses Prophylactic Use Aromatase Inhibitor Osteopenia Procedures BMD Bone Density Spine Hips Neptali Henning M.D. 200 [place] [address] [facility] Referral ID Status Reason Start Date Expiration Date Visits Re quested Visits Authorized [id number] Closed 11/01/2021 11/01/2022 1 1 Reason for Visit * Outpatient (Routine) - Closed Specialty Diagnoses / Procedures Referred By Josefina gauthier Referred To Contact Diagnoses Prophylactic Use Aromatase Inhibitor Osteopenia Procedures BMD Bone Density Spine Hips Neptali Henning M.D. 200 [place] [address] [facility] Referral ID Status Reason Start Date Expiration Date Visits Re quested Visits Authorized [id number] Closed 11/01/2021 11/01/2022 1 1 Encounter Details Date Type Department Care Team (Latest Contact Info) Description 05/07/2022 12:03 PM CDT - 05/07/2022 11:59 PM CDT Hospital Encounter Department of Radiology, [facility], in [place], [place] 200 [place] [address] Neptali Henning M.D. 200 [place] [address] Prophylactic Use Aromatase Inhibitor; Osteopenia Discharge Disposition: Home or Self Care Social [...] How often do you attend chur or mormonism services? More than 4 times per year 05/02/2022 Do you belong to any clubs o r organizations such as orthodoxy groups, unions, fraternal or athletic groups, or [...] Answer Date Recorded PHQ-2 Score 3 02/11/2022 [facility] - Occupational Stress Questionnaire Answer Date Recorded [...] place to sleep or slept in a fdc (including now)? No 05/02/2022 Depression Answer Date [...] Sex Assigned at Female 04/12/2021 7:31 PM SATELLITE DISH TECHNICIAN Gender Identity Female 04/12/2021 7:31 PM SATELLITE DISH TECHNICIAN Sexual Orientation Straight 04/12/2021 7: 31 PM SATELLITE DISH TECHNICIAN documented as of this encounter Medications at [...] by mouth daily. 90 tablet 3 02/11/2022 [id number] ORAL Take 1 tablet by mouth daily. [...] Take 1 capsule by mouth daily. 0 letrozole (FEMARA) 2.5 mg tablet Take 1 tablet (2.5 mg total) by mouth daily. Take with or without food. 90 tablet 3 05/07/2022 melatonin 5 mg tablet Take 5 mg [...] PM CDT Clinical Communication Virtual Review in [place], [place] 200 [place] [address] 05/11/2023 10:30 AM CDT Appointment Department of Radiology in [address] [phone] Neptali Henning M.D. [address] [place] [phone] Discharge Disposition: Home or Self Care 05/11/2023 12:40 PM CDT Appointment Department of Radiology, [facility], in [address] [phone] Neptali Henning M.D. [address] [place] [phone] Discharge Disposition: Home or Self Care 05/11/2023 3:30 PM CDT Office Visit [facility] in [place], [place] [address] [place] [phone] Neptali Henning M.D. [address] [place] [phone] documented as of this encounter Goals Goal Patient Goal Type Associated Problems Recent Progress Patient-Stated? Author Patient/caregiver will be independent in managing appointments Shital Murray RLeo Note: Patient to follow up with orthopedics regarding knee pain. documented as of this encounter Procedures Procedure Name Priority Date/Time Associated Diagnosis Comments BMD BONE DENSITY SPINE HIPS RAD - Routine (most inpatients and all outpatients) 05/07/2022 12:45 PM CDT Prophylactic Use Aromatase Inhibitor Osteopenia documented in this encounter Results * BMD Bone Density Spine Hips (05/07/2022 12:45 PM CDT) Anatomical Region Laterality Modality Hip, Lumbar Spine, Nuclear M edicine RST LOS, Musculoskeletal ARZ LOS, Muskuloskeletal FLA LOS N/A Radio graphic Imaging 05/07/2022 3:08 PM CDT Impressions 05/07/2022 3:15 PM CDT Low bone density (Osteopenia) DualFemur (region: Neck Left) ?? Narrative 05/07/2022 3:15 PM CDT EXAM: ??BMD BONE DENSITY SPINE HIPS Bone Mineral Density (BMD) analysis performed on [employer] with serial number [id number]. COMPARISON: Serial Comparisons Left Total Hip results: Exam Date ? BMD ? T-score ? 01/26/2004 ?1.122 g/cm2 ?? 0.9 ? 01/24/2005 ?1.107 g/cm2 ?? 0.8 ? 01/29/2006 ?1.082 g/cm2 ?? 0.6 ? 01/29/2006 ?1.072 g/cm2 ?? 0.5 ? 02/15/2008 ?1.058 g/cm2 ?? 0.4 ? 02/15/2008 ?1.061 g/cm2 ?? 0.4 ? 02/15/2020 ?0.987 g/cm2 ?? -0.2 ? 04/17/2021 ?0.961 g/cm2 ?? -0.4 ? 05/07/2022 ? 0.879 g/cm2 ?? -1.0 ? Change vs. Previous (difference): -0.082 g/cm2 *Change vs. Previous (%): -8.5 % The absolute BMD change from previous, -0.082 g/cm2, is greater than least significant change: Yes The absolute BMD change from baseline, -0.243 g/cm2, is greater than least significant change: Yes Right Total Hip results: Exam Date ? BMD ? T-score ? 01/29/2006 ?1.035 g/cm2 ?? 0.2 ? 01/29/2006 ?1.041 g/cm2 ?? 0.3 ? 02/15/2008 ?1.027 g/cm2 ?? 0.2 ? 02/15/2008 ?1.023 g/cm2 ?? 0.1 ? 02/15/2020 ?0.977 g/cm2 ?? -0.2 ? 04/17/2021 ?0.932 g/cm2 ?? -0.6 ? 05/07/2022 ? 0.885 g/cm2 ?? -1.0 ? Change vs. Previous (difference): -0.047 g/cm2 *Change vs. Previous (%): -5.0 % The absolute BMD change from previous, -0.047 g/cm2, is greater than least significant change: Yes The absolute BMD change from baseline, -0.150 g/cm2, is greater than least significant change: Yes Combined Total Hip results: Exam Date ? BMD ? T-score ? 01/29/2006 ?1.058 g/cm2 ?? 0.4 ? 01/29/2006 ?1.056 g/cm2 ?? 0.4 ? 02/15/2008 ?1.043 g/cm2 ?? 0.3 ? 02/15/2008 ?1.042 g/cm2 ?? 0.3 ? 02/15/2020 ?0.982 g/cm2 ?? -0.2 ? 04/17/2021 ?0.947 g/cm2 ?? -0.5 ? 05/07/2022 ? 0.882 g/cm2 ?? -1.0 ? Change vs. Previous (difference): -0.065 g/cm2 *Change vs. Previous (%): -6.9 % The absolute BMD change from previous, -0.065 g/cm2, is greater than least significant change: Yes The absolute BMD change from baseline, -0.176 g/cm2, is greater than least significant change: Yes Spine results: Exam Date ? BMD ? T-score ? 01/26/2004 ?1.131 g/cm2 ?? -0.3 ? 01/24/2005 ?1.124 g/cm2 ?? -0.3 ? 01/29/2006 ?1.128 g/cm2 ?? -0.3 ? 01/29/2006 ?1.115 g/cm2 ?? -0.4 ? 02/15/2008 ?1.086 g/cm2 ?? -0.7 ? 02/15/2008 ?1.090 g/cm2 ?? -0.7 ? 02/15/2020 ?1.047 g/cm2 ?? -1.0 ? 04/17/2021 ?1.100 g/cm2 ?? -0.6 ? 05/07/2022 ? 1.050 g/cm2 ?? -1.0 ? Change vs. Previous (difference): -0.050 g/cm2 Change vs. Previous (%): -4.5 % The absolute BMD change from previous, -0.050 g/cm2, is greater than the least significant change: No The absolute BMD change from baseline, -0.081 g/cm2, is greater than the least significant change: Yes ----- FINDINGS: Left Hip: Femur Neck: BMD = 0.818 g/cm2 T-score = -1.6 ?Z-score = 0.7 Total Hip: BMD = 0.879 g/cm2 T-score = -1.0 ?Z-score = 1.2 Right Hip: Femur Neck: BMD = 0.842 g/cm2 T-score = -1.4 ?? Z-score = 0.9 Total Hip: BMD = 0.885 g/cm2 T-score = -1.0 ?Z-score = 1.2 Lumbar Spine: L1: BMD = 0.998 g/cm2 L2: BMD = 1.103 g/cm2 L3: BMD = 1.317 g/cm2 L4: BMD = 1.252 g/cm2 Total Lumbar Spine (L1-L2): BMD = 1.050 g/cm2 T-score = -1.0 ?Z-score = 0.9 Trabecular Bone Score: L1-L2: TBS = 1.443 < 1.23: low 1.23 -1.31: borderline ?? > 1.31: normal ?? A low TBS has been associated with increased risk of fractures in certain populations. TBS should not be used alone to determine treatment recommendations. It can be used in conjunction with BMD and FRAX to inform management. Please note: A more comprehensive DXA report, including images and graphs, is available in [facility]. In the absence of other causes of low BMD or demonstrated skeletal fragility, osteoporosis may be diagnosed in post-menopausal women and men at or above age 50 when the T-score is at or below -2.5 as defined by the WHO. Low bone density is present at T-scores between -1 and - 2.5. The diagnosis in pre-menopausal women and men < age 50 can be based on low bone density or evidence of skeletal fragility in the appropriate clinical setting. Based on the bone density results, and on the patient's answers to the Fracture Risk Assessment questionnaire (please refer to appropriate image stored in the BMD study in [employer]), the calculated ten year probability of fracture is: FRAX Risk Factors: None FRAX (10 yr probability) adjusted for TBS: Major Osteoporotic Fracture: ??11.8 % Hip Fracture: ?4.0 % ?? Degenerative changes are present which may spuriously elevate the spine BMD measurement. Hips may be more reliable for future follow-up. Procedure Note Garfield Florze M.D. - 05/07/2022 EXAM: BMD BONE DENSITY SPINE HIPS Bone Mineral Density (BMD) analysis performed on [id number] with serialnumber [id number]. COMPARISON: Serial Comparisons Left Total Hip results: Exam Date BMD T-score 01/26/2004 1.122 g/cm2 0.9 01/24/2005 1.107 g/cm2 0.8 01/29/2006 1.082 g/cm2 0.6 01/29/2006 1.072 g/cm2 0.5 02/15/2008 1.058 g/cm2 0.4 02/15/2008 1.061 g/cm2 0.4 02/15/2020 0.987 g/cm2 -0.2 04/17/2021 0.961 g/cm2 -0.4 05/07/2022 0.879 g/cm2 -1.0 Change vs. Previous (difference): -0.082 g/cm2 *Change vs. Previous (%): -8.5 % The absolute BMD change from previous, -0.082 g/cm2, is greater than least significant change: Yes The absolute BMD change from baseline, -0.243 g/cm2, is greater than least significant change: Yes Right Total Hip results: Exam Date BMD T-score 01/29/2006 1.035 g/cm2 0.2 01/29/2006 1.041 g/cm2 0.3 02/15/2008 1.027 g/cm2 0.2 02/15/2008 1.023 g/cm2 0.1 02/15/2020 0.977 g/cm2 -0.2 04/17/2021 0.932 g/cm2 -0.6 05/07/2022 0.885 g/cm2 -1.0 Change vs. Previous (difference): -0.047 g/cm2 *Change vs. Previous (%): -5.0 % The absolute BMD change from previous, -0.047 g/cm2, is greater than least significant change: Yes The absolute BMD change from baseline, -0.150 g/cm2, is greater than least significant change: Yes Combined Total Hip results: Exam Date BMD T-score 01/29/2006 1.058 g/cm2 0.4 01/29/2006 1.056 g/cm2 0.4 02/15/2008 1.043 g/cm2 0.3 02/15/2008 1.042 g/cm2 0.3 02/15/2020 0.982 g/cm2 -0.2 04/17/2021 0.947 g/cm2 -0.5 05/07/2022 0.882 g/cm2 -1.0 Change vs. Previous (difference): -0.065 g/cm2 *Change vs. Previous (%): -6.9 % The absolute BMD change from previous, -0.065 g/cm2, is greater than least significant change: Yes The absolute BMD change from baseline, -0.176 g/cm2, is greater than least significant change: Yes Spine results: Exam Date BMD T-score 01/26/2004 1.131 g/cm2 -0.3 01/24/2005 1.124 g/cm2 -0.3 01/29/2006 1.128 g/cm2 -0.3 01/29/2006 1.115 g/cm2 -0.4 02/15/2008 1.086 g/cm2 -0.7 02/15/2008 1.090 g/cm2 -0.7 02/15/2020 1.047 g/cm2 -1.0 04/17/2021 1.100 g/cm2 -0.6 05/07/2022 1.050 g/cm2 -1.0 Change vs. Previous (difference): -0.050 g/cm2 Change vs. Previous (%): -4.5 % The absolute BMD change from previous, -0.050 g/cm2, is greater than the least significant change: No The absolute BMD change from baseline, -0.081 g/cm2, is greater than the least significant change: Yes ----- FINDINGS: Left Hip: Femur Neck: BMD = 0.818 g/cm2 T-score = -1.6 Z-score = 0.7 Total Hip: BMD = 0.879 g/cm2 T-score = -1.0 Z-score = 1.2 Right Hip: Femur Neck: BMD = 0.842 g/cm2 T-score = -1.4 Z-score = 0.9 Total Hip: BMD = 0.885 g/cm2 T-score = -1.0 Z-score = 1.2 Lumbar Spine: L1: BMD = 0.998 g/cm2 L2: BMD = 1.103 g/cm2 L3: BMD = 1.317 g/cm2 L4: BMD = 1.252 g/cm2 Total Lumbar Spine (L1-L2): BMD = 1.050 g/cm2 T-score = -1.0 Z-score = 0.9 Trabecular Bone Score: L1-L2: TBS = 1.443 < 1.23: low 1.23 -1.31: borderline > 1.31: normal A low TBS has been associated with increased risk of fractures in certainpopulations. TBS should not be used alone to determine treatment recommendations. It can be usedin conjunction with BMD and FRAX to inform management. Please note: A more comprehensive DXA report, including images and graphs,is available in [employer]. In the absence of other causes of low BMD or demonstrated skeletalfragility, osteoporosis may be diagnosed in post-menopausal women and men at or above age 50 when theT-score is at or below -2.5 as defined by the WHO. Low bone density is present at T-scores between -1and - 2.5. The diagnosis in pre-menopausal women and men < age 50 can be based on low bone density orevidence of skeletal fragility in the appropriate clinical setting. Based on the bone density results, and on the patient's answers to theFracture Risk Assessment questionnaire (please refer to appropriate image stored in the BMD studyin QREADS), the calculated ten year probability of fracture is: FRAX Risk Factors: None FRAX (10 yr probability) adjusted for TBS: Major Osteoporotic Fracture: 11.8 % Hip Fracture: 4.0 % Degenerative changes are present which may spuriously elevate the spineBMD measurement. Hips may be more reliable for future follow-up. IMPRESSION: Low bone density (Osteopenia) DualFemur (region: Neck Left) Neptali DU DXA PROCEDURES documented in this encounter Visit Diagnoses Diagnosis Prophylactic Use Aromatase Inhibitor Osteopenia documented in this encounter Additional Health Concerns Assessment Noted Time PHQ-9 Depression Total Score: 9 02/11/19 23 9:15 AM SATELLITE DISH TECHNICIAN documented as of this encounter Care Teams Gi Tech Relationship Specialty Start Date End Date Annie Wu M.D. [id number] [phone] PCP - General 07/24/16 documented as of this encounter
--- OUTSIDE RECORDS SUMMARY | 2023-02-25 10:17 | XMS_ITS | Encounter Summary ---
Author Name Unknown Organization [facility] Address [address] [place] [address] Care Team Providers Care Ict Programmer Name Role Phone Annie Wu M.D. Primary Care Pro vider Reason for Visit * Reason Comments Med Refill Encounter Details Date Type Department Care Team (Late st Contact Info) Description 11/24/2022 Refill Department of Family Medicine, [facility], in [address] [phone] Emre Brewster M.D., Ph.D. [address] [place] [phone] Med Refill Social History Tobacco Use [...] How often do you attend chur or temple services? More than 4 times per year 05/02/2022 Do you belong to any clubs o r organizations such as episcopalian groups, unions, fraternal or athletic groups, or [...] Answer Date Recorded PHQ-2 Score 3 02/11/2022 [facility] Questionnaire Answer Date [...] place to sleep or slept in a [place] health [place] facility (including now)? No 05/02/2022 Depression Answer Date [...] Sex Assigned at Female 04/12/2021 7:31 PM ENVIRONMENTAL ENGINEERING INTERN Gender Identity Female 04/12/2021 7:31 PM ENVIRONMENTAL ENGINEERING INTERN Sexual Orientation Straight 04/12/2021 7: 31 PM ENVIRONMENTAL ENGINEERING INTERN documented as of this encounter Plan of Treatment Upcoming Encounters Date Type Department Care Team (Latest Contact Info) Description 05/08/2023 12:00 PM CDT Clinical Communication Virtual Review in [place], [place] [address] [place] [address] 05/11/2023 10:30 AM CDT Appointment Department of Radiology in [place], [place] [address] [place] [address] Neptali Henning M.D. [address] [place] [phone] Discharge Disposition: Home or Self Care 05/11/2023 12:40 PM CDT Appointment Department of Radiology, [facility], in [place], [place] [address] [place] [address] Neptali Henning M.D. [address] [place] [address] Discharge Disposition: Home or Self Care 05/11/2023 3:30 PM CDT Office Visit [facility] Diagnostic Clinic in [place], [place] [address] [place] [address] Neptali Henning M.D. [address] [place] [phone] documented as of this encounter Goals Goal [...] Total Score: 9 02/11/19 23 9:15 AM ENVIRONMENTAL ENGINEERING INTERN documented as of this encounter Care Teams Ict Programmer Relationship Specialty Start Date End Date Annie Wu M.D. [id number] [phone] PCP - General 07/24/16 documented as of this encounter
--- OUTSIDE RECORDS SUMMARY | 2023-02-25 10:18 | XMS_ITS | Encounter Summary ---
Author Name Unknown Organization [facility] Address [address] [place] [address] Care Team Providers Care Express Clerk Name Role Phone Annie Wu M.D. Primary Care Pro vider Encounter Details Date Type Department Care Team (Late st Contact Info) Description 06/02/2006 Historical Ophthalmology RST OPH Anna Thurston M.D. [address] [place] [address] Social History Tobacco Use Types Packs/Day Years Used Date Smoking Tobacco: Never Assessed Sex and Gender Information Value Date Recorded Sex Assigned at Female 04/12/2021 7:31 PM SIX PACK PACKER Gender Identity Female 04/12/2021 7:31 PM SIX PACK PACKER Sexual Orientation Straight 04/12/2021 7: 31 PM SIX PACK PACKER documented as of this encounter Progress Notes * Anna Thurston M.D. - 06/02/2006 9:03 AM CDT Eye General CHIEF COMPLAINT 6 month follow up on Branch retinal vein occlusion left eye HISTORY OF PRESENT ILLNESS Patient states that miranda is the same. Sees a black floater once in awhile in, ? one eye. Has had for the last couple of years and is so tiny, she forgets about it. no changes. denies flashing lights. denies pressure and pain. 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 FU 12 months with general ophthalmology; retina prn DIAGNOSIS #1 Branch retinal vein occlusion left eye #2 s/p CME , left eye #3 Cataracts, moderate CDM Reports - EYEGEN Id: [id number] Status: Fnl documented in this encounter Plan of Treatment Upcoming Encounters Date Type Department Care Team (Latest Contact Info) Description 05/08/2023 12:00 PM CDT Clinical Communication Virtual Review in [place], [place] 200 [place] [address] 05/11/2023 10:30 AM CDT Appointment Department of Radiology in [address] [phone] Neptali Henning M.D. [address] [place] [phone] Discharge Disposition: Home or Self Care 05/11/2023 12:40 PM CDT Appointment Department of Radiology, [facility], in [address] [address] Neptali Henning M.D. [address] [place] [phone] Discharge Disposition: Home or Self Care 05/11/2023 3:30 PM CDT Office Visit Breast Diagnostic Clinic in [address] [phone] Neptali Henning M.D. [address] [place] [phone] documented as of this encounter Visit Diagnoses Not on filedocumented in this encounter Care Teams Express Clerk Relationship Specialty Start Date End Date Annie Wu M.D. [address] [place] [phone] PCP - General 6/15/17 [facility] Partition Making Machine Operator 02/12/23 Jevon Dental Dentist 02/12/23 [facility] Regional Program Manager 02/12/23 documented as of this encounter
--- OUTSIDE RECORDS SUMMARY | 2023-02-25 10:18 | XMS_ITS | Encounter Summary ---
Author Name Unknown Organization [facility] Address [address] [place] [address] Care Team Providers Care Athletic Agent Name Role Phone Annie Wu M.D. Primary Care Pro vider Reason for Referral * Outpatient (Routine) - Authorized Specialty Diagnoses / Procedures Referred By Josefina gauthier Referred To Contact Family Medicine Annie Wu M.D. [address] [place] [phone] [facility] Referral ID Status Reason Start Date Expiration Date V isits Requested Visits Authorized [id number] Authorized 02/26/2022 02/25/2025 1 1 TH EDUCATION AIDE Encounter Details Date Type Department Care Team (Late st Contact Info) Description 02/26/2022 Orders Only Department of Family Medicine, [facility], in [address] [phone] Annie Wu M.D. [address] [place] [phone] Diabetes Mellitus Type 2 Without Complication (HCC) (Primary Dx) Social History Tobacco Use Types Packs/Day Years Used Date Smoking Tobacco: Never Smokeless Tobacco: Never Alcohol Use Standard Drinks/Week Comments No 0 (1 standard drink = 0.6 oz pur e alcohol) Humiliation, Afraid, Rape, and Kick questionnair e Answer Date Recorded Within the last year, have y ou been afraid of your partner or ex-partner? No 09/08/2021 Within the last year, have y ou been humiliated or emotionally abused in other ways by your partner or ex-partner? No Within the last year, have y ou been kicked, hit, slapped, or otherwise physically hurt by your partner or ex-partner? No 09/08/2021 Within the last year, have y ou been raped or forced to have any kind of sexual activity by your partner or ex-partner? No 09/08/2021 Social Connection and Isolat ion Panel [NHANES] Answer Date Recorded In a typical week, how many times do you talk on the phone with family, friends, or neighbors? Three times a week 09/08/2021 How often do you get togethe r with friends or relatives? Once a week 09/08/2021 How often do you attend chur or samaritan services? More than 4 times per year 09/08/2021 Do you belong to any clubs o r organizations such as adventism groups, unions, fraternal or athletic groups, or school groups? No 09/08/2021 How often do you attend meet ings of the clubs or organizations you belong to? Patient declined 09/08/2021 Are you , , di vorced, , never , or living with a partner? 09/08/2021 AUDIT-C Answer Date Recorded Q1: How often do you have a drink containing alc ohol? Never 09/08/2021 Average Number of Drinks Not on file 022 Frequency of Binge Drinking Not on file 08/11 Overall Financial Resource Strain (CARDIA) Answe r Date Recorded How hard is it for you to pa y for the very basics like food, housing, medical care, and heating? Not hard at all 09/08/2021 PHQ-2 Answer Date Recorded PHQ-2 Score 3 02/11/2022 [facility] [place] of Occupat ional Health - Occupational Stress Questionnaire Answer Date Recorded Do you feel stress - tense, restless, nervous, or anxious, or unable to sleep at night because your mind is troubled all the time - these days? To some extent 09/08/2021 Exercise Vital Sign Answer Date Recorde d On average, how many days pe r week do you engage in moderate to strenuous exercise (like a brisk walk)? 2 days 09/08/2021 On average, how many minutes do you engage in exercise at this level? 30 min 09/08/2021 Hunger Vital Sign Answer Date Recorded Within the past 12 months, y ou worried that your food would run out before you got the money to buy more. Never true 09/09/19 22 Within the past 12 months, t he food you bought just didn't last and you didn't have money to get more. Never true 09/08/2021 PRAPARE - Transportation Answer Date Re corded In the past 12 months, has l ack of transportation kept you from medical appointments or from getting medications? No 08/11 In the past 12 months, has l ack of transportation kept you from meetings, work, or from getting things needed for daily living? No 09/08/2021 Housing Stability Vital Sign Answer Pb e Recorded In the last 12 months, was t here a time when you were not able to pay the mortgage or rent on time? No 09/08/2021 In the last 12 months, how many places have you lived? 1 09/08/2021 In the last 12 months, was t here a time when you did not have a steady place to sleep or slept in a halfway (including now)? No 09/08/2021 Depression Answer Date Recor ded PHQ-9 Total Score (max 27) 9 02/11 Nutrition Answer Date Recorded Nutrition: EVOO Fat Source Yes 09/08 On average, how many serving s of fruits and vegetables do you eat per day (serving size is equal to 1 cup or approximately the size of a tennis ball)? 2-3 09/08/2021 Dental Answer Date Recorded Dental: Regular Dentist Yes 04/05/19 Employment Answer Date Recorded Employment status Retired 09/08/2021 Education Answer Date Recorded What is the highest level of school you have completed or the highest degree you have received? 12th grade 03/23/2020 Sex and Gender Information Value Date Recorded Sex Assigned at Female 04/12/2021 7:31 PM HEALTH EDUCATION AIDE Gender Identity Female 04/12/2021 7:31 PM HEALTH EDUCATION AIDE Sexual Orientation Straight 04/12/2021 7: 31 PM HEALTH EDUCATION AIDE documented as of this encounter Plan of Treatment Upcoming Encounters Date Type Department Care Team (Latest Contact Info) Description 05/08/2023 12:00 PM CDT Clinical Communication Virtual Review in [place], [place] 200 [place] [address] 05/11/2023 10:30 AM CDT Appointment Department of Radiology in [address] [phone] Neptali Henning M.D. [address] [place] [phone] Discharge Disposition: Home or Self Care 05/11/2023 12:40 PM CDT Appointment Department of Radiology, [facility] in [address] [phone] Neptali Henning M.D. [address] [place] [phone] Discharge Disposition: Home or Self Care 05/11/2023 3:30 PM CDT Office Visit Breast Diagnostic Clinic in [address] [phone] Neptali Henning M.D. [address] [place] [phone] Scheduled Referrals Name Type Priority Associated Diagnoses Orde r Schedule Family Medicine office visit (clinic) Outpatient Referral Routine Expected: 08/26/2022 (Approximate), Expires: 05/28/2023 documented as of this encounter Goals Goal Patient Goal Type Associated Problems Recent Progress Patient-Stated? Author Patient/caregiver will be independent in managing appointments General Shital Asif RLeo Note: Patient to follow up with orthopedics regarding knee pain. documented as of this encounter Visit Diagnoses Diagnosis Diabetes Mellitus Type 2 Without Complication (HCC)- Primary documented in this encounter Additional Health Concerns Assessment Noted Time PHQ-9 Depression Total Score: 9 02/11/19 23 9:15 AM HEALTH EDUCATION AIDE documented as of this encounter Care Teams Athletic Agent Relationship Specialty Start Date End Date Annie Wu M.D. NPMamta: [phone] [id number] [phone] PCP - General 07/24/16 documented as of this encounter
--- OUTSIDE RECORDS SUMMARY | 2023-02-25 10:18 | XMS_ITS | Encounter Summary ---
Author Name Unknown Organization [facility] Address [address] [place] [address] Care Team Providers Care Electronics Hardware Design Engineer Name Role Phone Annie Wu M.D. Primary Care Pro vider Encounter Details Date Type Department Care Team (Late st Contact Info) Description 04/28/2005 Historical Ophthalmology RST OPH Dora Barbour O.D. Social History Tobacco Use Types Packs/Day Years Used Date Smoking Tobacco: Never Assessed Sex and Gender Information Value Date Recorded Sex Assigned at Female 04/12/2021 7:31 PM EMR ANALYST Gender Identity Female 04/12/2021 7:31 PM EMR ANALYST Sexual Orientation Straight 04/12/2021 7: 31 PM EMR ANALYST documented as of this encounter Progress Notes * Dora Barbour O.D. - 04/28/2005 12:00 AM CST Eye General CHIEF COMPLAINT Blurry vision (left eye) ; constant x 4-5 months. HISTORY OF PRESENT ILLNESS Had exam in [place] 02/14 ; had laser (left eye) for hemorrhage 03/17 . States no vision gain post laser treatment. May have noticed swelling in back of eye (right eye) at that time ; no treatment- denies vision complaints. Tearing ; constant (right eye > left eye) x 2 years. Denies flashes or floaters (both eyes) ; continues black spots in vision (left eye) - unchanged and no movement. 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 Thurston in retina for consultation #2 Cataracts, mild monitor #3 Refractive error (myopic astigmatism, hyperopic astigmatism, presbyopia). Plan: spectacle prescription (Refraction 2) given. 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 CDM Reports - EYEGEN Id: [id number] Status: Fnl documented in this encounter Plan of Treatment Upcoming Encounters Date Type Department Care Team (Latest Contact Info) Description 05/08/2023 12:00 PM CDT Clinical Communication Virtual Review in [place], [place] 200 [place] [address] 05/11/2023 10:30 AM CDT Appointment Department of Radiology in [address] [phone] Neptali Henning M.D. [address] [place] [phone] Discharge Disposition: Home or Self Care 05/11/2023 12:40 PM CDT Appointment Department of Radiology, [facility], in [address] [phone] Neptali Henning M.D. [address] [place] [phone] Discharge Disposition: Home or Self Care 05/11/2023 3:30 PM CDT Office Visit Breast Diagnostic Clinic in [address] [phone] Neptali Henning M.D. [address] [place] [phone] documented as of this encounter Visit Diagnoses Not on filedocumented in this encounter Care Teams Electronics Hardware Design Engineer Relationship Specialty Start Date End Date Annie Wu M.D. [address] [phone] PCP - General 07/24/16 [facility] Eye [facility] Mon[place]per 02/12/23 Jevon Dental Dentist 02/12/23 [facility] Learning Operations Specialist 02/12/23 documented as of this encounter
--- OUTSIDE RECORDS SUMMARY | 2023-02-25 10:18 | XMS_ITS | Encounter Summary ---
Author Name Unknown Organization [facility] Address [address] [place] [address] Care Team Providers Care Health Facilities Surveyor Name Role Phone Annie Wu M.D. Primary Care Pro vider Reason for Visit * Reason Comments Med Refill Encounter Details Date Type Department Care Team (Late st Contact Info) Description 04/16/2022 Refill Breast Diagnostic Clinic in [place], [place] [address] [place] [address] Neptali Henning M.D. [address] [place] [phone] Med Refill Social History Tobacco Use Types [...] 09/08/2021 How often do you attend chur ch or confucianism services? More than 4 times per year 09/08/2021 Do you belong to any clubs o r organizations such as lutheran groups, unions, fraternal or athletic groups, or [...] Answer Date Recorded PHQ-2 Score 3 02/11/2022 [facility] Questionnaire Answer Date [...] [place] [facility] (including now)? No 09/08/2021 Depression Answer Date [...] Sex Assigned at Female 04/12/2021 7:31 PM MOTION GRAPHICS DESIGNER Gender Identity Female 04/12/2021 7:31 PM MOTION GRAPHICS DESIGNER Sexual Orientation Straight 04/12/2021 7: 31 PM MOTION GRAPHICS DESIGNER documented as of this encounter Plan of Treatment Upcoming Encounters Date Type Department Care Team (Latest Contact Info) Description 05/08/2023 12:00 PM CDT Clinical Communication Virtual Review in [place], [place] 200 [place] [address] 05/11/2023 10:30 AM CDT Appointment Department of Radiology in [place], [place] [address] [place] [phone] Neptali Henning M.D. [address] [place] [phone] Discharge Disposition: Home or Self Care 05/11/2023 12:40 PM CDT Appointment Department of Radiology, [facility], in [place], [place] [address] [place] [address] Neptali Henning M.D. [address] [place] [phone] Discharge Disposition: Home or Self Care 05/11/2023 3:30 PM CDT Office Visit Breast Diagnostic Clinic in [place], [place] [address] [place] [address] Neptali Henning M.D. [address] [place] [address] documented as of this encounter Goals Goal [...] Total Score: 9 02/11/19 23 9:15 AM MOTION GRAPHICS DESIGNER documented as of this encounter Care Teams Health Facilities Surveyor Relationship Specialty Start Date End Date Annie Wu M.D. [address] [place] [phone] PCP - General 07/24/16 documented as of this encounter
--- OUTSIDE RECORDS SUMMARY | 2023-02-25 10:18 | XMS_ITS | Encounter Summary ---
Author Name Unknown Organization [facility] Address [address] [place] [address] Care Team Providers Care Aluminum Siding Installer Name Role Phone Annie Wu M.D. Primary Care Pro vider Reason for Visit * Reason Comments Nurse Visit BP check * Outpatient (Routine) - Authorized Specialty Diagnoses / Procedures Referred By Josefina gauthier Referred To Contact Jazzy Street M.D. [address] [place] [phone] [facility] Region Referral ID Status Reason Start Date Expiration Date V isits Requested Visits Authorized [id number] Authorized 02/11/2022 02/10/2025 1 1 Encounter Details Date Type Department Care Team (Late st Contact Info) Description 02/25/2022 10:00 AM RAILWAY SIGNAL ELECTRICIAN Nurse Only Department of Family Medicine, [facility], in [address] [phone] M.D. [address] [place] [phone] Heather Miramontes, L.P.N. [address] [place] [phone] Nurse Visit (BP check ) Social History Tobacco Use Types Packs/Day Years [...] How often do you attend chur or oriental orthodox services? More than 4 times per year 09/08/2021 Do you belong to any clubs o r organizations such as denominational groups, unions, fraternal or athletic groups, or [...] Answer Date Recorded PHQ-2 Score 3 02/11/2022 [facility] [place] of Occupat ional Health - Occupational Stress [...] place to sleep or slept in a fpc (including now)? No 09/08/2021 Depression Answer Date [...] Sex Assigned at Female 04/12/2021 7:31 PM RAILWAY SIGNAL ELECTRICIAN Gender Identity Female 04/12/2021 7:31 PM RAILWAY SIGNAL ELECTRICIAN Sexual Orientation Straight 04/12/2021 7: 31 PM RAILWAY SIGNAL ELECTRICIAN documented as of this encounter Last Filed Vital Signs Vital Sign Reading Time Taken Comments Blood Pressure 114/75 02/25/2022 10:38 AM RAILWAY SIGNAL ELECTRICIAN Pulse - - Temperature - - Respiratory Rate - - Oxygen Saturation - - Inhaled Oxygen Concentration - - Weight - - Height - - Body Mass Index - - documented in this encounter Progress Notes * Heather Miramontes, L.P.N. - 02/25/2022 10:00 AM CST Zena is seen today for a blood pressure visit as ordered by Dr. Street. Visit was conducted in clinic. Today's blood pressure reading and prior two readings: BP Readings from Last 3 Encounters: 02/25/22 114/75 02/11/22 90/58 11/01/21 115/66 . Medication list was reconciled, and patient is taking their blood pressure medication as prescribed. The patient reports no acute symptoms of hypertension Based on today's readings: The provider will be notified of today's visit and the patient was dismissed WAY SIGNAL ELECTRICIAN documented in this encounter Plan of Treatment Upcoming Encounters Date Type Department Care Team (Latest Contact Info) Description 05/08/2023 12:00 PM CDT Clinical Communication Virtual Review in [place], [place] 200 [place] [address] 05/11/2023 10:30 AM CDT Appointment Department of Radiology in [place], [place] [address] [place] [phone] Neptali Henning M.D. [address] [place] [phone] Discharge Disposition: Home or Self Care 05/11/2023 12:40 PM CDT Appointment Department of Radiology, [facility], in [place], [place] [address] [place] [phone] Neptali Hennnig M.D. [address] [place] [address] Discharge Disposition: Home or Self Care 05/11/2023 3:30 PM CDT Office Visit Breast Diagnostic Clinic in [place], [place] [address] [place] [address] Neptali Henning M.D. [address] [place] [phone] documented as of this encounter Goals Goal Patient Goal Type Associated Problems Recent Progress Patient-Stated? Author Patient/caregiver will be independent in managing appointments General Shital Asif, RBronwynNBronwyn Note: Patient to follow up with orthopedics regarding knee pain. documented as of this encounter Visit Diagnoses Diagnosis Hypertension Essential Primary- Primary documented in this encounter Additional Health Concerns Assessment Noted Time PHQ-9 Depression Total Score: 9 02/11/19 23 9:15 AM RAILWAY SIGNAL ELECTRICIAN documented as of this encounter Care Teams Aluminum Siding Installer Relationship Specialty Start Date End Date Annie Wu M.D. [address] [phone] PCP - General 07/24/16 documented as of this encounter
--- OUTSIDE RECORDS SUMMARY | 2023-02-25 10:18 | XMS_ITS | Encounter Summary ---
Author Name Unknown Organization [facility] Address [address] [place] [address] Care Team Providers Care Balance Clerk Name Role Phone nAnie Wu M.D. Primary Care Pro vider Encounter Details Date Type Department Care Team (Late st Contact Info) Description 07/08/2005 Historical Ophthalmology RST OPH Anna Thurston M.D. [address] [place] [address] Social History Tobacco Use Types Packs/Day Years Used Date Smoking Tobacco: Never Assessed Sex and Gender Information Value Date Recorded Sex Assigned at Female 04/12/2021 7:31 PM MANAGER LAN Gender Identity Female 04/12/2021 7:31 PM MANAGER LAN Sexual Orientation Straight 04/12/2021 7: 31 PM MANAGER LAN documented as of this encounter Progress Notes * Anna Thurston M.D. - 07/08/2005 12:00 AM CDT Eye General CHIEF COMPLAINT 2 month check branch retinal vein occlusion left eye HISTORY OF PRESENT ILLNESS Patient feels vision has improved slightly in the last 2 months left eye. Patient noted right eye lid started drooping over the last 2 weeks. 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 in [place] 03/2005 #2 Macular edema - secondary to #1 - mild Vision improved #3 Cataracts, moderate monitor #4 Refractive error (myopic astigmatism, hyperopic astigmatism, presbyopia). Plan: OCT Right: normal Left: Cystoid macular edema (better) superior macula, involving fovea. FU 3 months with OCT. DIAGNOSIS #1 Branch retinal vein occlusion left eye #2 Macular edema #3 Cataracts, moderate #4 Refractive error (myopic astigmatism, hyperopic astigmatism, presbyopia). CDM Reports - EYEGEN Id: [id number] Status: Fnl documented in this encounter Plan of Treatment Upcoming Encounters Date Type Department Care Team (Latest Contact Info) Description 05/08/2023 12:00 PM CDT Clinical Communication Virtual Review in [place], [place] 200 [place] [address] 05/11/2023 10:30 AM CDT Appointment Department of Radiology in [address] [phone] Neptali Henning M.D. [address] [place] [phone] Discharge Disposition: Home or Self Care 05/11/2023 12:40 PM CDT Appointment Department of Radiology, [facility], in [address] [phone] Neptali Henning M.D. [address] [place] [phone] Discharge Disposition: Home or Self Care 05/11/2023 3:30 PM CDT Office Visit Breast Diagnostic Clinic in [address] [phone] Neptali Henning M.D. [address] [place] [phone] documented as of this encounter Visit Diagnoses Not on filedocumented in this encounter Care Teams Balance Clerk Relationship Specialty Start Date End Date Annie Wu M.D. [address] [place] [phone] PCP - General 07/24/16 [facility] Eye [facility] [place] 02/12/23 [facility] Dental Dentist 02/12/23 [facility] Global Marketing Coordinator 02/12/23 documented as of this encounter
--- OUTSIDE RECORDS SUMMARY | 2023-02-25 10:18 | XMS_ITS | Encounter Summary ---
Author Name Unknown Organization [facility] Address [address] [place] [address] Care Team Providers Care Instructional Technology Director Name Role Phone Annie Wu M.D. Primary Care Pro vider Encounter Details Date Type Department Care Team (Late st Contact Info) Description 06/10/2004 Historical Ophthalmology RST OPH Sapphire Mcfarlane M.D. Social History Tobacco Use Types Packs/Day Years Used Date Smoking Tobacco: Never Assessed Sex and Gender Information Value Date Recorded Sex Assigned at Female 04/12/2021 7:31 PM DIVIDING MACHINE OPERATOR Gender Identity Female 04/12/2021 7:31 PM DIVIDING MACHINE OPERATOR Sexual Orientation Straight 04/12/2021 7: 31 PM DIVIDING MACHINE OPERATOR documented as of this encounter Progress Notes * Sapphire Mcfarlane M.D. - 06/10/2004 12:00 AM CDT Eye General CHIEF COMPLAINT small black spots in left eye; tearing of eyes HISTORY OF PRESENT ILLNESS Patient describes two small black spots in the left eye that have been present for 5-10 years. These are not noticed all the time as I am used to them and they move when looking up or down. Watery discharge from the eyes for past few years; not sure if this is due to allergies or not. Does not currently use any drops in the eyes. Sensitivity to sunlight for many years; always using sunglasses. No flashes. IMPRESSION / REPORT / PLAN #1 Hypertension, with ocular findings. #2 Branch retinal vein occlusion left eye, mild. This is secondary to the hypertensive changes. Discussed - no treatment and it is asymptomatic but warrants yearly check ups. Plan: monitor periodically. #3 Refractive error (myopia, hyperopia, presbyopia). Plan: spectacle prescription (Refraction 1) given. DIAGNOSIS #1 Hypertension, with ocular findings. #2 Branch retinal vein occlusion left eye, mild. #3 Refractive error (myopia, hyperopia, presbyopia). CDM Reports - EYEGEN Id: [id number] Status: Fnl documented in this encounter Plan of Treatment Upcoming Encounters Date Type Department Care Team (Latest Contact Info) Description 05/08/2023 12:00 PM CDT Clinical Communication Virtual Review in [address] [address] 05/11/2023 10:30 AM CDT Appointment Department of Radiology in [address] [address] Neptali Henning M.D. [address] [place] [phone] Discharge Disposition: Home or Self Care 05/11/2023 12:40 PM CDT Appointment Department of Radiology, [facility], in [address] [address] Neptali Henning M.D. [address] [place] [phone] Discharge Disposition: Home or Self Care 05/11/2023 3:30 PM CDT Office Visit Breast Diagnostic Clinic in [address] [phone] Neptali Henning M.D. [address] [place] [phone] documented as of this encounter Visit Diagnoses Not on filedocumented in this encounter Care Teams Instructional Technology Director Relationship Specialty Start Date End Date Annie Wu M.D. [address] [phone] PCP - General 07/24/16 [facility] Eye Care Director Immunology 02/12/23 [facility] Dental Dentist 02/12/23 [facility] Hearing Skein Washer 02/12/23 documented as of this encounter
--- OUTSIDE RECORDS SUMMARY | 2023-02-25 10:18 | XMS_ITS | Encounter Summary ---
Author Name Unknown Organization [facility] Address [address] [place] [address] Care Team Providers Care Cement Based Materials Pump Tender Name Role Phone Annie Wu M.D. Primary Care Pro vider Encounter Details Date Type Department Care Team (Late st Contact Info) Description 05/05/2005 Historical Ophthalmology RST OPH Anna Thurston M.D. [address] [place] [address] Social History Tobacco Use Types Packs/Day Years Used Date Smoking Tobacco: Never Assessed Sex and Gender Information Value Date Recorded Sex Assigned at Female 04/12/2021 7:31 PM COLLAR TACKER Gender Identity Female 04/12/2021 7:31 PM COLLAR TACKER Sexual Orientation Straight 04/12/2021 7: 31 PM COLLAR TACKER documented as of this encounter Progress Notes * Anna Thurston M.D. - 05/05/2005 12:00 AM CST Eye General CHIEF COMPLAINT vision in left eye is cloudy HISTORY OF PRESENT ILLNESS This 64 year old female was referred here by Dr. Barbour for an evaluation. 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 Patient states that they never got to return to the doctor that did the laser treatment in [place] because they came back to [place]. Patient state that vision hasn't changed since they had laser. Denies flashing lights. States that they have 2 black spots in the line of vision but notice them allthe time. Has had them for awhile. Denies pressure and pain. States that she has watery eyes. 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 in [place] 03/2005 #2 Macular edema - secondary to #1 - mild #3 Cataracts, moderate monitor #4 Refractive error (myopic astigmatism, hyperopic astigmatism, presbyopia). Plan: Photo OCT Right: normal Left: Cystoid macular edema superior macula, involving fovea. Intraretinal hemorrhage at fovea withshadowing. Pt has had good laser to involved area Decreased vision partly due to intraretinal hemorrhage Plan: observe per BVOS study. For discussion with pt re future possible options including PST Kenalog, vs Avastin FU 2 months with OCT. DIAGNOSIS #1 Branch retinal vein occlusion left eye #2 Macular edema #3 Cataracts, moderate #4 Refractive error (myopic astigmatism, hyperopic astigmatism, presbyopia). CDM Reports - EYEGEN Id: [id number] Status: Fnl documented in this encounter Plan of Treatment Upcoming Encounters Date Type Department Care Team (Latest Contact Info) Description 05/08/2023 12:00 PM CDT Clinical Communication Virtual Review in [address] [address] 05/11/2023 10:30 AM CDT Appointment Department of Radiology in [address] [address] Neptali Henning M.D. [address] [place] [phone] Discharge Disposition: Home or Self Care 05/11/2023 12:40 PM CDT Appointment Department of Radiology, [facility], in [address] [address] Neptali Henning M.D. [address] [place] [phone] Discharge Disposition: Home or Self Care 05/11/2023 3:30 PM CDT Office Visit Breast Diagnostic Clinic in [place], [place] [address] [place] [address] Neptali Henning M.D. [address] [place] [address] documented as of this encounter Visit Diagnoses Not on filedocumented in this encounter Care Teams Cement Based Materials Pump Tender Relationship Specialty Start Date End Date Annie Wu M.D. [id number] [place] [phone] PCP - General 07/24/16 [facility] Eye Care Apprentice Machinist Outside 02/12/23 [facility] Dental Dentist 02/12/23 [facility] Hearing Liquor Commissioner 02/12/23 documented as of this encounter
--- OUTSIDE RECORDS SUMMARY | 2023-02-25 10:18 | XMS_ITS | Encounter Summary ---
Author Name Unknown Organization [facility] Address [address] [place] [address] Care Team Providers Care Business Law Teacher Name Role Phone Annie Wu M.D. Primary Care Pro vider Encounter Details Date Type Department Care Team (Latest Contact Info) Description 02/25/2022 9:37 AM INCIDENT COMMANDER - 02/25/2022 11:59 PM [facility] Hospital Encounter Department of Laboratory Medicine in [address] [phone] Annie Wu M.D. [address] [place] [phone] Diabetes Mellitus Type 2 Without Complication (HCC); Hyperlipidemia; Hypertension Essential Primary; Hypothyroidism; Monitoring For Therapeutic Drug Therapy Discharge Disposition: Home or Self Care Social [...] often do you attend chur ch or zoroastrian services? More than 4 times per year 09/08/2021 Do you belong to any clubs o r organizations such as confucianist groups, unions, fraternal or athletic groups, or [...] Answer Date Recorded PHQ-2 Score 3 02/11/2022 [facility] of Occupat ional Health - Occupational Stress [...] slept in a longterm (including now)? No 09/08/2021 Depression Answer Date [...] Sex Assigned at Female 04/12/2021 7:31 PM INCIDENT COMMANDER Gender Identity Female 04/12/2021 7:31 PM INCIDENT COMMANDER Sexual Orientation Straight 04/12/2021 7: 31 PM INCIDENT COMMANDER documented as of this encounter Medications at [...] by mouth daily. 90 tablet 3 02/11/2022 [id number] ORAL Take 1 tablet by mouth daily. [...] MOUTH DAILY 90 tablet 3 11/19/2021 11/25/2022 letrozole (FEMARA) 2.5 mg tablet Take 1 tablet (2.5 mg total) by mouth daily. Take with or without food. 90 tablet 3 11/01/2021 05/07/2022 levothyroxine (SYNTHROID, LEVOTHROID) 125 mcg tablet TAKE 1 TABLET(125 MCG) BY MOUTH DAILY 90 tablet 0 02/01/2022 05/01/2022 metFORMIN (GLUCOPHAGE) 1,000 mg tablet TAKE 1 TABLET(1000 MG) BY MOUTH TWICE DAILY WITH MEALS 180 tablet 3 11/27/2021 11/25/2022 documented as of this encounter Plan of Treatment Upcoming Encounters Date Type Department Care Team (Latest Contact Info) Description 05/08/2023 12:00 PM CDT Clinical Communication Virtual Review in [place], [place] [address] [place] [address] 05/11/2023 10:30 AM CDT Appointment Department of Radiology in [address] [phone] Neptali Henning M.D. [address] [place] [phone] Discharge Disposition: Home or Self Care 05/11/2023 12:40 PM CDT Appointment Department of Radiology, [facility], in [place], [place] [address] [place] [address] Neptali Henning M.D. [address] [place] [phone] Discharge Disposition: Home or Self Care 05/11/2023 3:30 PM CDT Office Visit Breast Diagnostic Clinic in [place], [place] [address] [place] [address] Neptali Henning M.D. [address] [place] [phone] documented as of this encounter Goals Goal Patient Goal Type Associated Problems Recent Progress Patient-Stated? Author Patient/caregiver will be independent in managing appointments Shital Murray RBronwynNBronwyn Note: Patient to follow up with orthopedics regarding knee pain. documented as of this encounter Procedures Procedure Name Priority Date/Time Associated Diagnosis Comments LIPID PANEL, S Routine 02/25/2022 9:50 AM INCIDENT COMMANDER Diabetes Mellitus Type 2 Without Complication (HCC) Hyperlipidemia THYROID-STIMULATING HORMONE-SENSITIVE (S-TSH) Routine 02/25/2022 9:50 AM INCIDENT COMMANDER Diabetes Mellitus Type 2 Without Complication (HCC) Hypothyroidism HEMOGLOBIN A1C, B Routine 02/25/2022 9:5 0 AM INCIDENT COMMANDER Diabetes Mellitus Type 2 Without Complication (HCC) BASIC METABOLIC PANEL, S/P Routine 02/25/2022 9:50 AM INCIDENT COMMANDER Monitoring For Therapeutic Drug Therapy documented in this encounter Results * (ABNORMAL) Basic Metabolic Panel (02/25/2022 9:50 AM INCIDENT COMMANDER) Pathologist [facility] Potassium, P 4.8 3.6 - 5.2 mmol/L 02/25/2022 10:16 AM INCIDENT COMMANDER CNFL Sodium, P 136 135 - 145 mmol/L 02/25/2022 10:16 AM INCIDENT COMMANDER [facility] Chloride, P 99 98 - 107 mmol/L 02/25/2022 10:16 AM INCIDENT COMMANDER [facility] Bicarbonate, P 28 22 - 29 mmol/L 02/25/2022 10:16 AM INCIDENT COMMANDER [facility] Anion Gap, P 9 7 - 15 02/25/2022 10:16 AM INCIDENT COMMANDER [facility] BUN (Blood Urea Nitrogen), P 13 6 - 21 mg/dL 02/25/2022 10:16 AM INCIDENT COMMANDER [facility] Creatinine 0.73 0.59 - 1.04 mg/dL 02/25/2022 10:16 AM INCIDENT COMMANDER [facility] Estimated GFR (eGFR) 82 >=60 mL/min/BSA 02/25/2022 10:16 AM INCIDENT COMMANDER [facility] Comment: Estimated GFR calculated using the 2020 CKD_EPI creatinine equation. Calcium, Total, P 10.1 8.8 - 10.2 mg/dL 02/25/2022 10:16 AM INCIDENT COMMANDER [facility] Glucose, P 267(H) 70 - 140 mg/dL 02/25/2022 10:16 AM INCIDENT COMMANDER [facility] Blood (Blood, Venous) 02/25/2022 9:50 AM INCIDENT COMMANDER 02/25/2022 9:52 AM INCIDENT COMMANDER Annie Morgan M.D. LAB BLOOD ADD-ON Performing Organization Address City/State/[facility] Co de Phone Number [facility] [address] [place] [phone], [facility] CNFL [facility] in [address] [address] * S-TSH (Thyroid-Stimulating Hormone - Sensitive) (02/25/2022 9:50 AM INCIDENT COMMANDER) TSH, Sensitive 1.2 0.3 - 4.2 mIU/L 02/25/2022 10:24 AM INCIDENT COMMANDER [facility] Blood (Blood, Venous) 02/25/2022 9:50 AM INCIDENT COMMANDER 02/25/2022 9:52 AM INCIDENT COMMANDER Annie Morgan M.D. LAB BLOOD ADD-ON [facility] [address] [place] [phone], [facility] CNFL [facility] in [address] [address] * (ABNORMAL) Lipid Panel (02/25/2022 9:50 AM INCIDENT COMMANDER) Triglycerides 127 mg/dL 02/25/2022 10:16 AM INCIDENT COMMANDER CNFL Comment: ----REFERENCE VALUE---- Normal: <150 mg/dL Borderline High: 150-199 mg/dL High: 200-499 mg/dL Very High: > or =500 mg/dL Cholesterol, Total 102 mg/dL 2022 10:16 AM INCIDENT COMMANDER [facility] Comment: ----REFERENCE VALUE---- Desirable: < 200 mg/dL Borderline High: 200 - 239 mg/dL High: > or = 240 mg/dL Cholesterol, LDL, Calculated 34 mg/dL 02/25/2022 10:16 AM [facility] CNFL Comment: ----REFERENCE VALUE---- Desirable: <100 mg/dL Above Desirable: 100-129 mg/dL Borderline High: 130-159 mg/dL High: 160-189 mg/dL Very High: >=190 mg/dL ----ADDITIONAL INFORMATION---- LDL cholesterol calculated using the Thomas/NIH equation. Cholesterol, HDL 46(L) >=50 mg/dL 02/25/19 10:16 AM [facility] CNTN Cholesterol, Non-HDL, Calculated 56 mg/dL 02/25/2022 10:16 AM [facility] CNFL Comment: ----REFERENCE VALUE---- Desirable: <130 mg/dL Above Desirable: 130-159 mg/dL Borderline High: 160-189 mg/dL High: 190-219 mg/dL Very High: > or =220 mg/dL Fasting (8 HR or more) no 02/25/2022 9:52 AM INCIDENT COMMANDER CNTN Blood (Blood, Venous) 02/25/2022 9:50 AM INCIDENT COMMANDER 02/25/2022 9:52 AM INCIDENT COMMANDER Annie Morgan M.D. LAB BLOOD ADD-ON [facility] [address] [place] [address], [address] [address] * (ABNORMAL) Hemoglobin A1c (02/25/2022 9:50 AM INCIDENT COMMANDER) Hemoglobin A1c, B 6.7(H) 4.2 - 5.6 % 02/25/2022 10:07 AM INCIDENT COMMANDER [facility] Comment: Hemoglobin A1c values greater than or equal to 6.5 percent are diagnostic for diabetes mellitus. ??Diagnosis should be confirmed by repeat testing. ??In diabetic patients, HbA1c goals should be discussed with healthcare provider. Blood (Blood, Venous) 02/25/2022 9:50 AM INCIDENT COMMANDER 02/25/2022 9:52 AM INCIDENT COMMANDER Annie Morgan M.D. LAB BLOOD ADD-ON Performing Organization Address City/[facility]/ZIP Co de Phone Number [facility] [address] [place] [phone], [address] [address] documented in this encounter Visit Diagnoses Diagnosis Diabetes Mellitus Type 2 Without Complication (HCC) Hyperlipidemia Hypertension Essential Primary Hypothyroidism Monitoring For Therapeutic Drug Therapy documented in this encounter Additional Health Concerns Assessment Noted Time PHQ-9 Depression Total Score: 9 02/11/19 23 9:15 AM INCIDENT COMMANDER documented as of this encounter Care Teams Business Law Teacher Relationship Specialty Start Date End Date Annie Wu M.D. [address] [place] [phone] PCP - General 07/24/16 documented as of this encounter
--- OUTSIDE RECORDS SUMMARY | 2023-02-25 10:18 | XMS_ITS | Encounter Summary ---
Author Name Unknown Organization [facility] Address [address] [place] [address] Care Team Providers Care Product Marketing Coordinator Name Role Phone Annie Wu M.D. Primary Care Pro vider Reason for Visit * Reason Comments Nurse visit result Encounter Details Date Type Department Care Team (Latest Contact Info) Description 02/26/2022 Clinical Communication Department of Family Medicine, [facility], in [address] [phone] Annie Wu M.D. [address] [place] [phone] Nurse visit result Social History Tobacco Use Types Packs/Day Years [...] How often do you attend chur or mandaeism services? More than 4 times per year 09/08/2021 Do you belong to any clubs o r organizations such as druze groups, unions, fraternal or athletic groups, or [...] Answer Date Recorded PHQ-2 Score 3 [facility]2022 [facility] Answer Date [...] in a skilled nursing (including now)? No 09/08/2021 Depression Answer Date [...] Sex Assigned at Female 04/12/2021 7:31 PM DIRECTOR SHOPPER MARKETING Gender Identity Female 04/12/2021 7:31 PM DIRECTOR SHOPPER MARKETING Sexual Orientation Straight 04/12/2021 7: 31 PM DIRECTOR SHOPPER MARKETING documented as of this encounter Miscellaneous Notes * Telephone Encounter - Martha Lindsey, L.P.N. - 02/26/2022 2:21 PM DIRECTOR SHOPPER MARKETING SUBJECTIVE CHIEF COMPLAINT / REASON FOR CALL Nurse visit result Information Discussed Relayed provider message to patient. Blood pressure has shown improvement. Recommend continuing current medications. Patient verbalized understanding and had no further questions or concerns. PLAN Disposition/Recommendation: recommended continue engagement in self-management activities Information/Education: patient/caller able to teach back Caller agreeable to plan of care: yes The following references were used: nursing clinical judgement CTOR SHOPPER MARKETING documented in this encounter Plan of Treatment Upcoming Encounters Date Type Department Care Team (Latest Contact Info) Description 05/08/2023 12:00 PM CDT Clinical Communication Virtual Review in [address] [address] 05/11/2023 10:30 AM CDT Appointment Department of Radiology in [address] [address] Neptali Henning M.D. [address] [place] [phone] Discharge Disposition: Home or Self Care 05/11/2023 12:40 PM CDT Appointment Department of Radiology, [facility] in [address] [address] Neptali Henning M.D. [address] [place] [phone] Discharge Disposition: Home or Self Care 05/11/2023 3:30 PM CDT Office Visit Breast Diagnostic Clinic in [address] [address] Neptali Henning M.D. [address] [place] [phone] documented as of this encounter Goals Goal [...] Total Score: 9 02/11/19 23 9:15 AM DIRECTOR SHOPPER MARKETING documented as of this encounter Care Teams Product Marketing Coordinator Relationship Specialty Start Date End Date Annie Wu M.D. [address] [phone] PCP - General 07/24/16 documented as of this encounter
--- OUTSIDE RECORDS SUMMARY | 2023-02-25 10:18 | XMS_ITS | Encounter Summary ---
Author Name Unknown Organization [facility] Address [address] [place] [address] Care Team Providers Care Home Hospice Rn Name Role Phone Annie Wu M.D. Primary Care Pro vider Encounter Details Date Type Department Care Team (Late st Contact Info) Description 07/11/2008 Historical Ophthalmology RST OPH Ursula Lima O.D. [address] [place] [address] Social History Tobacco Use Types Packs/Day Years Used Date Smoking Tobacco: Never Assessed Sex and Gender Information Value Date Recorded Sex Assigned at Female 04/12/2021 7:31 PM SOIL SAMPLER Gender Identity Female 04/12/2021 7:31 PM SOIL SAMPLER Sexual Orientation Straight 04/12/2021 7: 31 PM SOIL SAMPLER documented as of this encounter Progress Notes * Ursula Lima O.D. - 07/11/2008 8:05 AM CDT Eye General CHIEF COMPLAINT general eye exam, droopy right eye HISTORY OF PRESENT ILLNESS Patient reports visual acuity stable in both eyes. Denies flashes, new floaters, and diplopia. Denies ocular pain. Patient notes tearing and more drooping in the right eye x 1-2 years. Hx of Branch retinal vein occlusion left eye IMPRESSION / REPORT / PLAN #1 Branch retinal vein occlusion, left eye s/p macular grid laser treatment in [place] 03/2005 #2 s/p CME , left eye #3 Cataracts, moderate Plan: Discussed, monitor #4 Refractive error (mixed astigmatism, hyperopic astigmatism, presbyopia). Plan: spectacle prescription (Refraction 1) given. #5 Dry eye syndrome, both eyes Plan: AT's qid, Celluvisc at bedtime. Recommend annual exams. DIAGNOSIS #1 Branch retinal vein occlusion, left eye #2 s/p CME , left eye #3 Cataracts, moderate #4 Refractive error (mixed astigmatism, hyperopic astigmatism, presbyopia). #5 Dry eye syndrome, both eyes CDM Reports - EYEGEN Id: [id number] Status: Fnl documented in this encounter Plan of Treatment Upcoming Encounters Date Type Department Care Team (Latest Contact Info) Description 05/08/2023 12:00 PM CDT Clinical Communication Virtual Review in [address] [address] 05/11/2023 10:30 AM CDT Appointment Department of Radiology in [address] [phone] Neptali Henning M.D. [address] [place] [phone] Discharge Disposition: Home or Self Care 05/11/2023 12:40 PM CDT Appointment Department of Radiology, [facility], in [address] [address] Neptali Henning M.D. [address] [place] [phone] Discharge Disposition: Home or Self Care 05/11/2023 3:30 PM CDT Office Visit Breast Diagnostic Clinic in [address] [address] Neptali Henning M.D. [address] [place] [phone] documented as of this encounter Visit Diagnoses Not on filedocumented in this encounter Additional Health Concerns Assessment Noted Time PHQ-9 Depression Total Score: 7 03/28/19 09 10:22 AM SOIL SAMPLER documented as of this encounter Care Teams Home Hospice Rn Relationship Specialty Start Date End Date Annie Wu M.D. NPMamta: [phone] [id number] [phone] PCP - General 07/24/16 [facility] Eye Care General Ophthalmologist 02/12/23 [facility] 02/12/23 [facility] Hearing Merchandise Planner 02/12/23 documented as of this encounter
--- OUTSIDE RECORDS SUMMARY | 2023-02-25 10:18 | XMS_ITS | Encounter Summary ---
Author Name Unknown Organization [facility] Address [address] [place] [address] Care Team Providers Care Self Rising Flour Mixer Name Role Phone Annie Wu M.D. Primary Care Pro vider Encounter Details Date Type Department Care Team (Late st Contact Info) Description 10/10/2005 Historical Ophthalmology RST OPH Anna Thurston M.D. [address] [place] [address] Social History Tobacco Use Types Packs/Day Years Used Date Smoking Tobacco: Never Assessed Sex and Gender Information Value Date Recorded Sex Assigned at Female 04/12/2021 7:31 PM SUPERVISOR GRADING Gender Identity Female 04/12/2021 7:31 PM SUPERVISOR GRADING Sexual Orientation Straight 04/12/2021 7: 31 PM SUPERVISOR GRADING documented as of this encounter Progress Notes * Anna Thurston M.D. - 10/10/2005 12:00 AM CDT Eye General CHIEF COMPLAINT Recheck HISTORY OF PRESENT ILLNESS Vision is the same. No floaters or flashes of light. No pain. 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 in [place] 03/2005 #2 Macular edema, - secondary to #1 - mild Vision improved to 20/20 #3 Cataracts, moderate monitor OCT Right: normal Left: Cystoid macular edema has completey resolved FU 6 months CDM Reports - EYEGEN Id: [id number] Status: Fnl documented in this encounter Plan of Treatment Upcoming Encounters Date Type Department Care Team (Latest Contact Info) Description 05/08/2023 12:00 PM CDT Clinical Communication Virtual Review in [place], [place] [address] [place] [address] 05/11/2023 10:30 AM CDT Appointment Department of Radiology in [place], [place] [address] [place] [phone] Neptali Henning M.D. [address] [place] [phone] Discharge Disposition: Home or Self Care 05/11/2023 12:40 PM CDT Appointment Department of Radiology, [facility] in [place], [place] [address] [place] [phone] Neptali Henning M.D. [address] [place] [phone] Discharge Disposition: Home or Self Care 05/11/2023 3:30 PM CDT Office Visit Breast Diagnostic Clinic in [address] [address] Neptali Henning M.D. [address] [place] [phone] documented as of this encounter Visit Diagnoses Not on filedocumented in this encounter Care Teams Self Rising Flour Mixer Relationship Specialty Start Date End Date Annie Wu M.D. [address] [place] [phone] PCP - General 07/24/16 [facility] Eye Care Real Estate Officer 02/12/23 Jev[facility] Dental Dentist 02/12/23 [employer] Hearing Flask Fitter 02/12/23 documented as of this encounter
[2023-02-25] MEDS: KETOROLAC OPHTH 0.5% 1 DROP EYE-RIGHT ×2 (10:25→10:30)
[2023-02-25] MEDS: TETRACAINE 0.5% OPHTH 1 DROP EYE-RIGHT ×2 (10:25→10:30)
[2023-02-25 10:56] VITALS: BMI 25.9
[2023-02-25 11:00] VITALS: BP 136/63; PULSE 66; RESP 16; TEMP 36.7; O2SAT 97
[2023-02-25] MEDS: SODIUM CHLORIDE 0.9 % (FLUSH) 10 ML SYRINGE IVF (11:04)
--- NOTE | 2023-02-25 11:04 | SUR.PREOP ---
The eye drops brought by the patient (Ketorolac and Prednisolone) are examined and I have determined they are labeled by the patient's pharmacy for this patient as prescribed by the surgeon. The bottles are intact, recently obtained and appear to be correct.lalo
[2023-02-25] MEDS: TETRACAINE 0.5% OPHTH 2 DROP EYE-RIGHT (11:43)
--- NOTE | 2023-02-25 11:44 | W.ANESCHARGE ---
Anesthesia Charges Start Date/Time Anesthesia Start Date: 02/25/23 Anesthesia Start Time: 11:40 Stop Date/Time Anesthesia Stop Date: 02/25/23 Anesthesia Stop Time: 12:14 Summary Extremes of Age - Over 70 or under 1: MDA
[2023-02-25] MEDS: BALANCED SALT IRRIG SOLN 15 ML EYE-RIGHT (11:48)
--- NOTE | 2023-02-25 11:53 | P.ANES_ITS ---
Anesthesia Charges Start Date/Time Anesthesia Start Date: 02/25/23 Anesthesia Start Time: 11:40 Stop Date/Time Anesthesia Stop Date: 02/25/23 Anesthesia Stop Time: 12:14 Summary Extremes of Age - Over 70 or under 1: INTERNET DEVELOPER
[2023-02-25 12:10] VITALS: BP 131/67; PULSE 64; RESP 16; TEMP 36.7; O2SAT 96
--- NOTE | 2023-02-25 12:16 | P.OPTPRC_ITS ---
Procedure Note Date of procedure: 02/25/23 Will [facility] bill your pro fee for this procedure?: Yes Procedure Description: SURGEON: Delma Tovar MD PREOPERATIVE DIAGNOSIS: Nuclear sclerotic cataract, right eye. POSTOPERATIVE DIAGNOSIS: Nuclear sclerotic cataract, right eye. NAME OF OPERATION: Phacoemulsification of cataract with posterior chamber intraocular lens implantation in the right eye. ANESTHESIA: Topical. ESTIMATED BLOOD LOSS: Less than 2 cc. COMPLICATIONS: None. PATHOLOGY SPECIMEN: None. INDICATIONS: See consult note for details. The risks, benefits and alternatives of the procedure were explained to the patient, who elected to proceed and signed informed consent to do so. PROCEDURE: The patient was brought to the pre-holding area where the right eye was identified as the operative eye. I placed my initials above this eye. The patient received eye drops consisting of 0.5% tetracaine, 1% tropicamide, 10% phenylephrine, and 0.5% ketorolac. The patient was then brought to the operating room where the right eye was again identified as the operative eye. The eye was prepped with Betadine and draped in the usual sterile ophthalmic fashion. A #15 super-sharp blade was used to create a paracentesis site. 1% non-preserved intracameral lidocaine was injected into the anterior chamber. Endocoat was injected into the anterior chamber. A 2.4 mm keratome was used to create a three-plane self-sealing incision 1 mm anterior to the temporal limbus. A cystotome was used to create an anterior capsular leaflet. The Utrata forceps were used to extend this to form a continuous curvilinear capsulorrhexis. Hydrodissection was performed. The cataract was removed with phacoemulsification using the znqzsi-rnt-xxmalee technique. The irrigation and aspiration tip was used to remove the remaining cortex. Healon was injected into the capsular bag. An NONI ZCB00 intraocular lens of 18.5 diopters was injected into the capsular bag. The irrigation and aspiration tip was used to remove the remaining viscoelastic. Balanced salt solution on a cannula was used to hydrate the wound, and the wound was found to be watertight. The pupil was noted to be round. DISPOSITION: The patient was taken to the recovery room and discharged to home in stable condition. The patient was instructed to call me or go to the emergency department with any sudden change, including dramatic loss of vision, severe pain in the eye or eyebrow region, nausea, or vomiting. The patient will follow up in the clinic tomorrow morning.
== END 2023-02-25 12:46 | disposition home or self-care (01) ==
LOC: OR 10:14
PROVIDERS: Visit Provider Ophthalmology
PROC: (CPT 66984; principal; 2023-02-25 10:30)
DX: H25.11 Age-related nuclear cataract, right eye (principal)
CPT/HCPCS: 66984; 00142; 82962; 99100; A9270; J2250; J3010; V2632

== ENCOUNTER 2023-03-11 11:14 | Day surgery (SDC) | payer MEDICARE, SELFPAY ==
[2023-03-11] MEDS: TETRACAINE 0.5% OPHTH 1 DROP EYE-LEFT ×2 (11:20→11:25)
[2023-03-11] MEDS: KETOROLAC OPHTH 0.5% 1 DROP EYE-LEFT ×2 (11:20→11:25)
--- OUTSIDE RECORDS SUMMARY | 2023-03-11 11:25 | XMS_ITS ---
Author Name Unknown Organization [facility] Address [address] [place] [address] Care Team Providers Care Salesperson Sewing Machines Name Role Phone Unavailable Unavailable Unavailable Surgery Details Not on file Complications Check Surgery Details section. Procedure Estimated Blood Loss Check Surgery Details section. Procedure Findings Check Surgery Details section. Procedure Specimens Taken Check Surgery Details section.
--- OUTSIDE RECORDS SUMMARY | 2023-03-11 11:25 | XMS_ITS | Encounter Summary ---
Author Name Unknown Organization [facility] Address [address] [place] [address] Care Team Providers Care Cigarette Package Examiner Name Role Phone Annie Wu M.D. Primary Care Pro vider Reason for Visit * Reason Comments Med Refill Encounter Details Date Type Department Care Team (Late st Contact Info) Description 03/08/2023 Refill Department of Family Medicine, [facility], in [address] [phone] M.D. [address] [place] [phone] Med Refill Social History Tobacco Use Types Packs/Day Years Used Date Smoking Tobacco: Never Smokeless Tobacco: Never Alcohol Use Standard Drinks/Week Comments No 0 (1 standard drink = 0.6 oz pur e alcohol) [facility] Utilities Answer Date Recorded In the past 12 months has [facility] [employer], gas, oil, or water [employer] threatened to shut off services in your [...] often do you attend chur ch or mormon services? More than 4 times per year 05/02/2022 Do you belong to any clubs o r organizations such as sikhism groups, unions, fraternal or athletic groups, or [...] Answer Date Recorded PHQ-2 Score 0 02/11/2023 [facility] - Occupational [...] to sleep or slept in a senior living (including now)? No 05/02/2022 Depression Answer Date [...] Sex Assigned at Female 04/12/2021 7:31 PM ENERGY ADVISOR Gender Identity Female 04/12/2021 7:31 PM ENERGY ADVISOR Sexual Orientation Straight 04/12/2021 7: 31 PM ENERGY ADVISOR documented as of this encounter Plan of Treatment Upcoming Encounters Date Type Department Care Team (Latest Contact Info) Description 05/08/2023 12:00 PM CDT Clinical Communication Virtual Review in [place], [place] [address] [place] [address] 05/11/2023 10:30 AM CDT Appointment Department of Radiology in [place], [place] [address] [place] [address] Neptali Henning M.D. [address] [place] [address] Discharge Disposition: Home or Self Care 05/11/2023 12:40 PM CDT Appointment Department of Radiology, [facility] in [place], [place] [address] [place] [address] Neptali Henning M.D. [address] [place] [address] Discharge Disposition: Home or Self Care 05/11/2023 3:30 PM CDT Office Visit Breast Diagnostic Clinic in [place], [place] [address] [place] [address] Neptali Henning M.D. [address] [place] [phone] documented as of this encounter Goals Goal Patient Goal Type Associated Problems Recent Progress Patient-Stated? Author Patient/caregiver will be independent in managing appointments Shital Murray, RBronwynN. Note: Patient to follow up with orthopedics regarding knee pain. documented as of this encounter Visit Diagnoses Not on filedocumented in this encounter Additional Health Concerns Assessment Noted Time PHQ-9 Depression Total Score: 3 02/11/19 24 12:10 PM ENERGY ADVISOR documented as of this encounter Care Teams Cigarette Package Examiner Relationship Specialty Start Date End Date Annie Wu M.D. [id number] [phone] PCP - General 07/24/16 [facility] Eye Care Kitman 02/12/23 [facility] Dental Dentist 02/12/23 [facility] Hearing Survey Analyst 02/12/23 documented as of this encounter
--- OUTSIDE RECORDS SUMMARY | 2023-03-11 11:25 | XMS_ITS | Clinical Summary ---
Author Name Unknown Organization [facility] Address [address] [place] [address] Care Team Providers Care Blintze Roller Name Role Phone Annie Wu M.D. Primary Care Pro vider Source Comments Patient records contain information from all sites at [facility]. For routine questions regarding patient records, call [phone] during business hours, M-F 8:00 AM - 5:00 PM Central Time. Record requests for emergency care only can be directed to [phone] at any time.[facility] Allergies No known active allergies Medications Medication [...] at bedtime. 90 tablet 3 02/11/2022 Active letrozole (FEMARA) [...] mouth daily. 90 tablet 3 02/12/2023 Active citalopram (CeleXA) 10 mg tablet TAKE 1 TABLET(10 MG) BY MOUTH DAILY 90 tablet 3 03/09/2023 Active benazepriL (LOTENSIN) 10 mg tablet TAKE 1 TABLET(10 MG) BY MOUTH DAILY 90 tablet 3 03/09/2023 Active citalopram (CeleXA) 10 mg tablet Take 1 tablet (10 mg total) by mouth daily. 90 tablet 3 02/11/2022 4 Discontinued benazepriL (LOTENSIN) 10 mg tablet Take 1 tablet (10 mg total) by mouth daily. 90 tablet 3 02/11/2022 4 Discontinued levothyroxine (SYNTHROID, LEVOTHROID) 125 mcg tablet [...] Encounters Date Type Department Care Team Description 03/08/2023 Refill Department of Family Medicine, [facility], in [address] [phone] M.D. Med Refill 02/12/2023 12:00 PM PERSONNEL SCHEDULER Office Visit Department of Family Medicine, [facility], in [address] [phone] Annie Wu M.D. Erickson, Brook C, RLeo Annual Medicare Examination Return (Primary Dx) Discharge Disposition: Home or Self Care 02/12/2023 11:30 AM PERSONNEL SCHEDULER Office Visit Department of Family Medicine, [facility], in [address] [phone] Sarah Diaz APRN C.N.P., D.N.P. Hypertension Essential Primary (Primary Dx); Preoperative Exam; Cataract; Malignant Neoplasm Of Breast Female Left (HCC); Diabetes Mellitus Type 2 Without Complication (HCC); Hypothyroidism; Hyperlipidemia; History Of Falling Discharge Disposition: Home or Self Care 02/10/2023 Orders Only [facility] PCP [facility] Annie Wu M.D. Monitoring For Therapeutic Drug Therapy; Hypothyroidism 01/26/2023 Refill Department of Family Medicine, [facility], in [address] [phone] Annie Wu M.D. Med Refill from Last [...] irus (ABRYSVO) bivalent vaccine 11/04/2022 RZV (SHINGRIX) 08/20/2022, 2(Deferred: Other - will inquire with PCP),04/19/2021,04/17/2021(Deferred: Other - Will update locally) SARS-COV-2 (COVID-19) - PFIZ ER (12 years or older) 11/01/2020,04/17/2020,03/22/2020 Td (Adult), adsorbed 01/19/2002 Tdap 10/29/2014,06/07/2012 influenza high dose (65 year s or older) (PF) 11/23/2018,11/11/2017 Family History Medical History Relation Name Comments Dementia Brother 1 Cholo Pulmonary hypertension Brother 2 [place] Amputation Brother 4 Ивна Emphysema Brother 4 Иван No Known Problems [...] Comments Brother 1 Cholo Alive Brother 2 [place] (Age 86) Brother 3 Pastor Alive Brother [...] drink = 0.6 oz pur e alcohol) [facility] Utilities Answer Date Recorded In the past 12 months has [employer], gas, oil, or water [employer] threatened to shut off services in your [...] often do you attend chur ch or church services? More than 4 times per year 05/02/2022 Do you belong to any clubs o r organizations such as buddhist groups, unions, fraternal or athletic groups, or [...] Answer Date Recorded PHQ-2 Score 0 02/11/2023 [facility] Occupat ional Health - Occupational [...] Sex Assigned at Female 04/12/2021 7:31 PM PERSONNEL SCHEDULER Gender Identity Female 04/12/2021 7:31 PM PERSONNEL SCHEDULER Sexual Orientation Straight 04/12/2021 7: 31 PM PERSONNEL SCHEDULER Last Filed Vital Signs Vital Sign Reading Time Taken Comments Blood Pressure 101/68 02/12/2023 11:19 AM PERSONNEL SCHEDULER Pulse 80 02/12/2023 11:19 AM PERSONNEL SCHEDULER Temperature 37.1 ??C (98.8 ??F) 02/12/2023 11:[address] Respiratory Rate 20 02/12/2023 11:19 AM PERSONNEL SCHEDULER Oxygen Saturation 95% 02/12/2023 11:19 AM PERSONNEL SCHEDULER Inhaled Oxygen Concentration - - Weight 69.2 kg (152 lb 8.9 oz) 02/12/2023 11:19 AM PERSONNEL SCHEDULER Height 163.4 cm (5' 4.33) 02/12/2023 11:[address] Body Mass Index 25.92 02/12/2023 11:19 AM PERSONNEL SCHEDULER Plan of Treatment Upcoming Encounters Date Type Department Care Team (Latest Contact Info) Description 05/08/2023 12:00 PM CDT Clinical Communication Virtual Review in [place], [place] [address] [place] [address] 05/11/2023 10:30 AM CDT Appointment Department of Radiology in [address] [phone] Neptali Henning M.D. [address] [place] [phone] Discharge Disposition: Home or Self Care 05/11/2023 12:40 PM CDT Appointment Department of Radiology, [facility], in [address] [address] Neptali Henning M.D. [address] [place] [phone] Discharge Disposition: Home or Self Care 05/11/2023 3:30 PM CDT Office Visit Breast Diagnostic Clinic in [address] [phone] Neptali Henning M.D. [address] [place] [phone] Health Maintenance Due Date Last Done Comments [...] Additional history exists Urine Albumin 02/13/2024 02/12/2023, 05/2021, 03/02/2020, Additional history exists Visit: Chronic Disease, [...] knee pain. Medical Devices Implanted Type Area Visual And Stock Associate Device Identifier Shelf Expiration Date Model / Serial / Lot Cmnt Bn Hi Visc Pmma 40 - [id number] Implanted:Qty : 1 on 01/14/2019 by Regan Alatorre M.D. at [facility] Bone Cement Left: Knee Independence [id number] 06/08/2020 6191-1-00 1 / / [id number] Triathlon Primary Tibial Baseplate Implanted:Qty : 1 on 01/14/2019 by Regan Alatorre M.D. at [facility] Knee Implant Left: Knee [place] [id number] 07/22/2021 5520-B-40 0 / / [id number] Procedures Procedure Name Priority Date/Time Associated Diagnosis Comments ALBUMIN, RANDOM, U Routine 02/12/2023 12 :00 PM PERSONNEL SCHEDULER Diabetes Mellitus Type 2 Without Complication (HCC) HEMOGLOBIN A1C, B Routine 02/12/2023 11: 51 AM PERSONNEL SCHEDULER Diabetes Mellitus Type 2 Without Complication (HCC) BASIC METABOLIC PANEL, S/P Routine 02/12/2023 11:51 AM PERSONNEL SCHEDULER Hypertension Essential Primary Diabetes Mellitus Type 2 Without Complication (HCC) THYROID-STIMULATING HORMONE-SENSITIVE (S-TSH) Routine 02/12/2023 11:51 AM PERSONNEL SCHEDULER Hypothyroidism LIPID PANEL, S Routine 02/12/2023 11:51 AM PERSONNEL SCHEDULER Hyperlipidemia from Last 3 Months Results * Albumin, Random, Urine (02/12/2023 12:00 PM PERSONNEL SCHEDULER) Microalbumin 22.3 mg/L 02/12/2023 12:17 PM PERSONNEL SCHEDULER CNFL Creatinine 210 mg/dL 02/12/2023 12:17 PM PERSONNEL SCHEDULER CNFL Albumin/Creatinin e Ratio 11 <25 mg/g 02/12/2023 12:17 PM PERSONNEL SCHEDULER CNFL Urine (Urine, Midstream) 02/12/2023 12:00 PM PERSONNEL SCHEDULER 02/12/2023 12:00 PM PERSONNEL SCHEDULER Sarah Diaz APRN, C.N.P., D.N.P. LAB URINE ORDERABLES [facility] [address] [place] [address], [facility] [place] [address] * (ABNORMAL) Lipid Panel (02/12/2023 11:51 AM PERSONNEL SCHEDULER) Triglycerides 175(H) mg/dL 02/12/2023 12:25 PM PERSONNEL SCHEDULER CNFL Comment: ----REFERENCE VALUE---- Normal: <150 mg/dL Borderline High: 150-199 mg/dL High: 200-499 mg/dL Very High: > or =500 mg/dL Cholesterol, Total 114 mg/dL 2023 12:25 PM PERSONNEL SCHEDULER CNFL Comment: ----REFERENCE VALUE---- Desirable: < 200 mg/dL Borderline High: 200 - 239 mg/dL High: > or = 240 mg/dL Cholesterol, LDL, Calculated 35 mg/dL 02/12/2023 12:25 PM PERSONNEL SCHEDULER CNFL Comment: ----REFERENCE VALUE---- Desirable: <100 mg/dL Above Desirable: 100-129 mg/dL Borderline High: 130-159 mg/dL High: 160-189 mg/dL Very High: >=190 mg/dL ----ADDITIONAL INFORMATION---- LDL cholesterol calculated using the Thomas/NIH equation. Cholesterol, HDL 51 >=50 mg/dL 02/12/19 12:25 PM PERSONNEL SCHEDULER CNFL Cholesterol, Non-HDL, Calculated 63 mg/dL 02/12/2023 12:25 PM PERSONNEL SCHEDULER CNFL Comment: ----REFERENCE VALUE---- Desirable: <130 mg/dL Above Desirable: 130-159 mg/dL Borderline High: 160-189 mg/dL High: 190-219 mg/dL Very High: > or =220 mg/dL Fasting (8 HR or more) No Yes 02/12/2023 12:00 PM PERSONNEL SCHEDULER CNFL Blood (Blood, Venous) 02/12/2023 11:51 AM PERSONNEL SCHEDULER 02/12/2023 12:00 PM PERSONNEL SCHEDULER Sarah Diaz APRN, C.N.P., D.N.P. LAB BLOOD ADD-ON Performing Organization Address [facility]/[place] [address], [place] [address] * (ABNORMAL) S-TSH (Thyroid-Stimulating Hormone - Sensitive) (02/12/2023 11:51 AM PERSONNEL SCHEDULER) TSH, Sensitive 0.2(L) 0.3 - 4.2 mIU/L 02/12/2023 12:34 PM PERSONNEL SCHEDULER CNFL Blood (Blood, Venous) 02/12/2023 11:51 AM PERSONNEL SCHEDULER 02/12/2023 12:00 PM PERSONNEL SCHEDULER Sarah Diaz APRN, C.N.P., D.N.P. LAB BLOOD ADD-ON Performing Organization Address [facility]/ZIP Co de Phone Number [address] [address], [place] [address] * (ABNORMAL) Hemoglobin A1c (02/12/2023 11:51 AM PERSONNEL SCHEDULER) Hemoglobin A1c, B 6.3(H) 4.2 - 5.6 % 02/12/2023 12:14 PM PERSONNEL SCHEDULER [place] Comment: Hemoglobin A1c values of 5.7-6.4 percent indicate an increased risk for developing diabetes mellitus. In diabetic patients, HbA1c goals should be discussed with healthcare provider. Blood (Blood, Venous) 02/12/2023 11:51 AM PERSONNEL SCHEDULER 02/12/2023 12:00 PM PERSONNEL SCHEDULER Sarah Diaz APRN, C.N.P., Brooke.N.P. LAB BLOOD ADD-ON [facility] [address] [place] [address], [facility] CNFL [facility] [place] [address] * (ABNORMAL) Basic Metabolic Panel (02/12/2023 11:51 AM PERSONNEL SCHEDULER) Potassium, P 4.7 3.6 - 5.2 mmol/L 02/12/2023 12:25 PM PERSONNEL SCHEDULER CNFL Sodium, P 139 135 - 145 mmol/L 02/12/2023 12:25 PM PERSONNEL SCHEDULER CNFL Chloride, P 100 98 - 107 mmol/L 02/12/2023 12:25 PM PERSONNEL SCHEDULER CNFL Bicarbonate, P 30(H) 22 - 29 mmol/L 02/12/2023 12:25 PM PERSONNEL SCHEDULER CNFL Anion Gap, P 9 7 - 15 02/12/2023 12:25 PM PERSONNEL SCHEDULER CNFL BUN (Blood Urea Nitrogen), P 20 6 - 21 mg/dL 02/12/2023 12:25 PM PERSONNEL SCHEDULER CNFL Creatinine 0.69 0.59 - 1.04 mg/dL 02/12/2023 12:25 PM PERSONNEL SCHEDULER CNFL Estimated GFR (eGFR) 86 >=60 mL/min/BSA 02/12/2023 12:25 PM PERSONNEL SCHEDULER CNFL Comment: Estimated GFR calculated using the 2020 CKD_EPI creatinine equation. Calcium, Total, P 10.7(H) 8.8 - 10.2 mg/dL 02/12/2023 12:25 PM PERSONNEL SCHEDULER CNFL Glucose, P 143(H) 70 - 140 mg/dL 02/12/2023 12:25 PM PERSONNEL SCHEDULER CNFL Blood (Blood, Venous) 02/12/2023 11:51 AM PERSONNEL SCHEDULER 02/12/2023 12:00 PM PERSONNEL SCHEDULER Sarah Baca Joe CRAFT C.N.P., D.N.P. LAB BLOOD ADD-ON [facility] [address] [place] [address], [place] CNFL [facility] in [place] [id number] [place] [phone] from Last 3 Months Advance Directives For more information, please contact: [phone] Documents on File Type Date Recorded Patient Channel Process Plant Operator Expl anation Advance Directives 03/02/2003 12:00 AM [...] Answer Comments Full Code: Discussed Care Teams Blintze Roller Relationship Specialty Start Date End Date Annie Wu M.D. [id number] [phone] PCP - General 07/24/16 [facility] Eye Care Manager Utility 02/12/23 [facility] Dental Dentist 02/12/23 [facility] Hearing Counselor At Law 02/12/23
--- OUTSIDE RECORDS SUMMARY | 2023-03-11 11:25 | XMS_ITS | Referral Summary ---
Author Name Unknown Organization [facility] Address [address] [place] [address] Care Team Providers Care Dewatering Filtering Supervisor Name Role Phone Annie Wu M.D. Primary Care Pro vider Source Comments Patient records contain information from all sites at [facility]. For routine questions regarding patient records, call [phone] during business hours, M-F 8:00 AM - 5:00 PM Central Time. Record requests for emergency care only can be directed to [phone] at any time.[facility] Encounters Date Type Department Care Team Description 03/08/2023 Refill Department of Family Medicine, [facility], in [address] [phone] M.D[address] Med Refill 02/12/2023 12:00 PM OFFICE CLINICIAN Office Visit Department of Family Medicine, [facility], in [address] [phone] Annie Wu M.D. Erickson, Brook C, R.N. Annual Medicare Examination Return (Primary Dx) Discharge Disposition: Home or Self Care 02/12/2023 11:30 AM OFFICE CLINICIAN Office Visit Department of Family Medicine, [facility], in [address] [phone] Sarah Diaz APRN, C.N.P., D.N.P. Hypertension Essential Primary (Primary Dx); Preoperative Exam; Cataract; Malignant Neoplasm Of Breast Female Left (HCC); Diabetes Mellitus Type 2 Without Complication (HCC); Hypothyroidism; Hyperlipidemia; History Of Falling Discharge Disposition: Home or Self Care 02/10/2023 Orders Only [facility] M.D. Monitoring For Therapeutic Drug Therapy; Hypothyroidism 01/26/2023 Refill Department of Family Medicine, [facility], in [address] [phone] Annie Wu M.D. Med Refill from Last [...] drink = 0.6 oz pur e alcohol) [facility] [employer] Answer Date Recorded In the past 12 months has e [employer], gas, oil, or water [employer] threatened to shut off services in your [...] week 05/02/2022 How often do you attend [facility] or [facility] services? More than 4 times [...] Answer Date Recorded PHQ-2 Score 0 02/11/2023 [facility] - Occupational [...] place to sleep or slept in a group home (including now)? No 05/02/2022 Depression Answer Date [...] Sex Assigned at Female 04/12/2021 7:31 PM OFFICE CLINICIAN Gender Identity Female 04/12/2021 7:31 PM OFFICE CLINICIAN Sexual Orientation Straight 04/12/2021 7: 31 PM OFFICE CLINICIAN Last Filed Vital Signs Vital Sign Reading Time Taken Comments Blood Pressure 101/68 02/12/2023 11:19 AM OFFICE CLINICIAN Pulse 80 02/12/2023 11:19 AM OFFICE CLINICIAN Temperature 37.1 ??C (98.8 ??F) 02/12/2023 11:[address] Respiratory Rate 20 02/12/2023 11:19 AM OFFICE CLINICIAN Oxygen Saturation 95% 02/12/2023 11:19 AM OFFICE CLINICIAN Inhaled Oxygen Concentration - - Weight 69.2 kg (152 lb 8.9 oz) 02/12/2023 11:19 AM OFFICE CLINICIAN Height 163.4 cm (5' 4.33) 02/12/2023 11:[address] Body Mass Index 25.92 02/12/2023 11:19 AM OFFICE CLINICIAN Plan of Treatment Upcoming Encounters Date Type Department Care Team (Latest Contact Info) Description 05/08/2023 12:00 PM CDT Clinical Communication Virtual Review in [place], [place] [address] [place] [address] 05/11/2023 10:30 AM CDT Appointment Department of Radiology in [place], [place] [address] [place] [address] Neptali Henning M.D. [address] [place] [phone] Discharge Disposition: Home or Self Care 05/11/2023 12:40 PM CDT Appointment Department of Radiology, [facility], in [place], [place] [address] [place] [address] Neptali Henning M.D. [address] [place] [phone] Discharge Disposition: Home or Self Care 05/11/2023 3:30 PM CDT Office Visit Breast Diagnostic Clinic in [place], [place] [address] [place] [address] Neptali Henning M.D. [address] [place] [phone] Goals Goal Patient Goal Type Associated Problems Recent Progress Patient-Stated? Author Patient/caregiver will be independent in managing appointments General Shital Asif, RBronwynNBronwyn Note: Patient to follow up with orthopedics regarding knee pain. Medical Devices Implanted Type Area Bindery Supervisor Device Identifier Shelf Expiration Date Model / Serial / Lot Cmnt Bn Hi Visc Pmma 40 - [id number] Implanted:Qty : 1 on 01/14/2019 by Regan Alatorre M.D. at [facility] Bone Cement Left: Knee [place] [id number] 06/08/2020 6191-1-00 1 / / [id number] Triathlon Primary Tibial Baseplate Implanted:Qty : 1 on 01/14/2019 by Regan Alatorre M.D. at [facility] Knee Implant Left: Knee [place] [id number] 07/22/2021 [id number]-[id number] 0 / / [id number] Procedures Procedure Name Priority Date/Time Associated Diagnosis Comments ALBUMIN, RANDOM, U Routine 02/12/2023 12 :00 PM OFFICE CLINICIAN Diabetes Mellitus Type 2 Without Complication (HCC) HEMOGLOBIN A1C, B Routine 02/12/2023 11: 51 AM OFFICE CLINICIAN Diabetes Mellitus Type 2 Without Complication (HCC) BASIC METABOLIC PANEL, S/P Routine 02/12/2023 11:51 AM OFFICE CLINICIAN Hypertension Essential Primary Diabetes Mellitus Type 2 Without Complication (HCC) THYROID-STIMULATING HORMONE-SENSITIVE (S-TSH) Routine 02/12/2023 11:51 AM OFFICE CLINICIAN Hypothyroidism LIPID PANEL, S Routine 02/12/2023 11:51 AM OFFICE CLINICIAN Hyperlipidemia from Last 3 Months Results * Albumin, Random, Urine (02/12/2023 12:00 PM OFFICE CLINICIAN) Microalbumin 22.3 mg/L 02/12/2023 12:17 PM OFFICE CLINICIAN CNFL Creatinine 210 mg/dL 02/12/2023 12:17 PM OFFICE CLINICIAN CNFL Albumin/Creatinin e Ratio 11 <25 mg/g 02/12/2023 12:17 PM OFFICE CLINICIAN CNFL Urine (Urine, Midstream) 02/12/2023 12:00 PM OFFICE CLINICIAN 02/12/2023 12:00 PM OFFICE CLINICIAN Sarah Diaz APRN, C.N.P., D.N.P. LAB URINE ORDERABLES Performing Organization Address City/State/[facility] Co de Phone Number [facility] [address] [place] [address], [facility] CNFL [facility] in [address] [address] * (ABNORMAL) Lipid Panel (02/12/2023 11:51 AM OFFICE CLINICIAN) Triglycerides 175(H) mg/dL 02/12/2023 12:25 PM OFFICE CLINICIAN CNFL Comment: ----REFERENCE VALUE---- Normal: <150 mg/dL Borderline High: 150-199 mg/dL High: 200-499 mg/dL Very High: > or =500 mg/dL Cholesterol, Total 114 mg/dL 2023 12:25 PM OFFICE CLINICIAN CNFL Comment: ----REFERENCE VALUE---- Desirable: < 200 mg/dL Borderline High: 200 - 239 mg/dL High: > or = 240 mg/dL Cholesterol, LDL, Calculated 35 mg/dL 02/12/2023 12:25 PM OFFICE CLINICIAN CNFL Comment: ----REFERENCE VALUE---- Desirable: <100 mg/dL Above Desirable: 100-129 mg/dL Borderline High: 130-159 mg/dL High: 160-189 mg/dL Very High: >=190 mg/dL ----ADDITIONAL INFORMATION---- LDL cholesterol calculated using the Thomas/NIH equation. Cholesterol, HDL 51 >=50 mg/dL 02/12/19 12:25 PM OFFICE CLINICIAN CNFL Cholesterol, Non-HDL, Calculated 63 mg/dL 02/12/2023 12:25 PM OFFICE CLINICIAN CNFL Comment: ----REFERENCE VALUE---- Desirable: <130 mg/dL Above Desirable: 130-159 mg/dL Borderline High: 160-189 mg/dL High: 190-219 mg/dL Very High: > or =220 mg/dL Fasting (8 HR or more) No Yes 02/12/2023 12:00 PM OFFICE CLINICIAN CNFL Blood (Blood, Venous) 02/12/2023 11:51 AM OFFICE CLINICIAN 02/12/2023 12:00 PM OFFICE CLINICIAN Sarah Diaz APRN, C.N.P., D.N.P. LAB BLOOD ADD-ON [facility] [address] [place] [address], [facility] CNFL [place] [address] * (ABNORMAL) S-TSH (Thyroid-Stimulating Hormone - Sensitive) (02/12/2023 11:51 AM OFFICE CLINICIAN) TSH, Sensitive 0.2(L) 0.3 - 4.2 mIU/L 02/12/2023 12:34 PM OFFICE CLINICIAN CNFL Blood (Blood, Venous) 02/12/2023 11:51 AM OFFICE CLINICIAN 02/12/2023 12:00 PM OFFICE CLINICIAN Sarah Diaz APRN, C.N.P., D.N.P. LAB BLOOD ADD-ON Performing Organization Address [facility] Co de Phone Number [address] [address], [facility] CNFL [facility] in [address] [address] * (ABNORMAL) Hemoglobin A1c (02/12/2023 11:51 AM OFFICE CLINICIAN) Hemoglobin A1c, B 6.3(H) 4.2 - 5.6 % 02/12/2023 12:14 PM OFFICE CLINICIAN CNFL Comment: Hemoglobin A1c values of 5.7-6.4 percent indicate an increased risk for developing diabetes mellitus. In diabetic patients, HbA1c goals should be discussed with healthcare provider. Blood (Blood, Venous) 02/12/2023 11:51 AM OFFICE CLINICIAN 02/12/2023 12:00 PM OFFICE CLINICIAN Sarah Diaz APRN, C.N.P., D.N.P. LAB BLOOD ADD-ON Performing Organization Address City/[facility] Co de Phone Number [address] [address], [place] CNFL [facility] in [address] [address] * (ABNORMAL) Basic Metabolic Panel (02/12/2023 11:51 AM OFFICE CLINICIAN) Potassium, P 4.7 3.6 - 5.2 mmol/L 02/12/2023 12:25 PM OFFICE CLINICIAN CNFL Sodium, P 139 135 - 145 mmol/L 02/12/2023 12:25 PM OFFICE CLINICIAN CNFL Chloride, P 100 98 - 107 mmol/L 02/12/2023 12:25 PM OFFICE CLINICIAN CNFL Bicarbonate, P 30(H) 22 - 29 mmol/L 02/12/2023 12:25 PM OFFICE CLINICIAN CNFL Anion Gap, P 9 7 - 15 02/12/2023 12:25 PM OFFICE CLINICIAN CNFL BUN (Blood Urea Nitrogen), P 20 6 - 21 mg/dL 02/12/2023 12:25 PM OFFICE CLINICIAN CNFL Creatinine 0.69 0.59 - 1.04 mg/dL 02/12/2023 12:25 PM OFFICE CLINICIAN CNFL Estimated GFR (eGFR) 86 >=60 mL/min/BSA 02/12/2023 12:25 PM OFFICE CLINICIAN CNFL Comment: Estimated GFR calculated using the 2020 CKD_EPI creatinine equation. Calcium, Total, P 10.7(H) 8.8 - 10.2 mg/dL 02/12/2023 12:25 PM OFFICE CLINICIAN CNFL Glucose, P 143(H) 70 - 140 mg/dL 02/12/2023 12:25 PM OFFICE CLINICIAN CNFL Blood (Blood, Venous) 02/12/2023 11:51 AM OFFICE CLINICIAN 02/12/2023 12:00 PM OFFICE CLINICIAN Sarah Diaz APRN, C.N.P., D.N.P. 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 [id number] [phone] PCP - General 07/24/16 [facility] Eye Care Consultant Internship 02/12/23 [facility] Dentist 02/12/23 [facility] Levers Lace Machine Operator 02/12/23
--- OUTSIDE RECORDS SUMMARY | 2023-03-11 11:26 | XMS_ITS | Encounter Summary ---
Author Name Unknown Organization [facility] Address [address] [place] [address] Care Team Providers Care Production Control Clerk Name Role Phone Annie Wu M.D. Primary Care Pro vider Reason for Referral * Outpatient (Routine) - Closed Specialty Diagnoses / Procedures Referred By Josefina gauthier Referred To Contact Diagnoses Intraductal Carcinoma In Situ Of Left Breast Procedures BI Ultrasound Breast Focused Left Neptali Henning M.D. [address] [place] [phone] [facility] Referral ID Status Reason Start Date Expiration Date Visits Re quested Visits Authorized [id number] Closed 05/07/2022 05/07/2023 1 1 Reason for Visit * Outpatient (Routine) - Closed Specialty Diagnoses / Procedures Referred By Josefina gauthier Referred To Contact Diagnoses Intraductal Carcinoma In Situ Of Left Breast Procedures BI Ultrasound Breast Focused Left Neptali Henning M.D. [address] [place] [address] [facility] Referral ID Status Reason Start Date Expiration Date Visits Re quested Visits Authorized [id number] Closed 05/07/2022 05/07/2023 1 1 Encounter Details Date Type Department Care Team (Latest Contact Info) Description 05/07/2022 10:49 AM CDT - 05/07/2022 12:02 PM CDT Hospital Encounter Department of Radiology in [place], [place] [address] [place] [address] Neptali Henning M.D. [address] [place] [address] Intraductal Carcinoma In Situ Of Left Breast [...] often do you attend chur ch or caodaism services? More than 4 times per year 05/02/2022 Do you belong to any clubs o r organizations such as worship groups, unions, fraternal or athletic groups, or [...] Answer Date Recorded PHQ-2 Score 3 02/11/2022 [facility]at [facility] - Occupational Stress Questionnaire Answer Date [...] place to sleep or slept in a nursing home (including now)? No 05/02/2022 Depression Answer [...] Sex Assigned at Female 04/12/2021 7:31 PM LIGHT RAIL TRAIN OPERATOR Gender Identity Female 04/12/2021 7:31 PM LIGHT RAIL TRAIN OPERATOR Sexual Orientation Straight 04/12/2021 7: 31 PM LIGHT RAIL TRAIN OPERATOR documented as of this encounter Medications at Time of Discharge Medication Sig Dispensed Refills Start Date End Date acetaminophen (TYLENOL) 500 mg tablet Take 2 tablets (1,000 mg total) by mouth every 6 (six) hours as needed for pain. 100 tablet 0 01/17/[address] tablet Take 81 mg by mouth daily. 0 [id number] ORAL Take 1 tablet by mouth daily. 0 cholecalciferol (for_VITAMIN D3) 1,000 Unit tablet Take 1 tablet by mouth daily. 0 11/14/2012 cyanocobalamin (for_VITAMIN B12) 1,000 mcg tablet Take [...] MOUTH DAILY 90 tablet 3 11/19/2021 11/25/2022 benazepriL (LOTENSIN) 10 mg tablet Take 1 tablet (10 mg total) by mouth daily. 90 tablet 3 02/11/2022 03/09/2023 citalopram (CeleXA) 10 mg tablet Take 1 tablet (10 mg total) by mouth daily. 90 tablet 3 02/11/2022 03/09/2023 levothyroxine (SYNTHROID, LEVOTHROID) 125 mcg tablet TAKE [...] PM CDT Clinical Communication Virtual Review in [place], [place] [address] [place] [address] 05/11/2023 10:30 AM CDT Appointment Department of Radiology in [address] [phone] Neptali Henning M.D. [address] [place] [phone] Discharge Disposition: Home or Self Care 05/11/2023 12:40 PM CDT Appointment Department of Radiology, [facility], in [place], [place] [address] [place] [phone] Neptali Henning M.D. [address] [place] [phone] Discharge Disposition: Home or Self Care 05/11/2023 3:30 PM CDT Office Visit Breast Diagnostic Clinic in [place], [place] [address] [place] [phone] Neptali Henning M.D. [address] [place] [phone] documented as of this encounter Goals Goal [...] Total Score: 9 02/11/19 23 9:15 AM LIGHT RAIL TRAIN OPERATOR documented as of this encounter Care Teams Production Control Clerk Relationship Specialty Start Date End Date [place] Annie Morgan M.D. [address] [phone] PCP - General 07/24/16 documented as of this encounter
--- OUTSIDE RECORDS SUMMARY | 2023-03-11 11:26 | XMS_ITS | Encounter Summary ---
Author Name Unknown Organization [facility] Address [address] [place] [address] Care Team Providers Care Bar Back Name Role Phone Annie Wu M.D. Primary Care Pro vider Reason for Visit * Reason Comments Pre-op Exam Cataract surgery [facility] 02/25 right eye, 03/11 left eye * Appointment Request (Routine) - Closed Specialty Diagnoses / Procedures Referred By Josefina gauthier Referred To Contact Family Medicine Referral ID Status Reason Start Date Expiration Date Visits Re quested Visits Authorized [id number] Closed 01/27/2023 01/27/2024 1 1 Encounter Details Date Type Department Care Team (Late st Contact Info) Description 02/12/2023 11:30 AM CARD TENDER Office Visit Department of Family Medicine, [facility], in [address] [phone] Sarah Diaz APRN, C.N.P., D.N.P. [address] [place] [phone] Hypertension Essential Primary (Primary Dx); Preoperative Exam; [...] e alcohol) [facility] Utilities Answer Date Recorded In the past [...] often do you attend chur ch or restoration services? More than 4 times per year [...] Answer Date Recorded PHQ-2 Score 0 02/11/2023 [facility] Answer Date [...] place to sleep or slept in a retirement (including now)? No 05/02/2022 Depression Answer Date [...] Sex Assigned at Female 04/12/2021 7:31 PM CARD TENDER Gender Identity Female 04/12/2021 7:31 PM CARD TENDER Sexual Orientation Straight 04/12/2021 7: 31 PM CARD TENDER documented as of this encounter Last Filed Vital Signs Vital Sign Reading Time Taken Comments Blood Pressure 101/68 02/12/2023 11:19 AM CARD TENDER Pulse 80 02/12/2023 11:19 AM CARD TENDER Temperature 37.1 ??C (98.8 ??F) 02/12/2023 11:[address] Respiratory Rate 20 02/12/2023 11:19 AM CARD TENDER Oxygen Saturation 95% 02/12/2023 11:19 AM CARD TENDER Inhaled Oxygen Concentration - - Weight 69.2 kg (152 lb 8.9 oz) 02/12/2023 11:19 AM CARD TENDER Height 163.4 cm (5' 4.33) 02/12/2023 11:[address] Body Mass Index 25.92 02/12/2023 11:19 AM CARD TENDER documented in this encounter H&P Notes * [...] 32 minutes. Sarah Diaz APRN, C.N.P., D.N.P. TENDER documented in this encounter Miscellaneous Notes * Addendum Note - Sarah Diaz APRN, C.N.P., D.N.P. - 02/12/2023 11:30 AM CSTAddended by: SARAH DIAZ on: 02/12/2023 01:08 PM Modules accepted: Level of Service TENDER documented in this encounter Plan of Treatment Upcoming Encounters Date Type Department Care Team (Latest Contact Info) Description 05/08/2023 12:00 PM CDT Clinical Communication Virtual Review in [place], [place] [address] [place] [address] 05/11/2023 10:30 AM CDT Appointment Department of Radiology in [address] [phone] Neptali Henning M.D. [address] [place] [phone] Discharge Disposition: Home or Self Care 05/11/2023 12:40 PM CDT Appointment Department of Radiology, [facility] in [address] [phone] Neptali Henning M.D. [address] [place] [phone] Discharge Disposition: Home or Self Care 05/11/2023 3:30 PM CDT Office Visit Breast Diagnostic Clinic in [address] [phone] Neptali Henning M.D. [address] [place] [phone] Scheduled Orders Name Type Priority Associated Diagnoses [...] RANDOM, U Routine 02/12/2023 12 :00 PM CARD TENDER Diabetes Mellitus Type 2 Without Complication (HCC) LIPID PANEL, S Routine 02/12/2023 11:51 AM CARD TENDER Hyperlipidemia THYROID-STIMULATING HORMONE-SENSITIVE (S-TSH) Routine 02/12/2023 11:51 AM CARD TENDER Hypothyroidism HEMOGLOBIN A1C, B Routine 02/12/2023 11: 51 AM CARD TENDER Diabetes Mellitus Type 2 Without Complication (HCC) BASIC METABOLIC PANEL, S/P Routine 02/12/2023 11:51 AM CARD TENDER Hypertension Essential Primary Diabetes Mellitus Type 2 Without Complication (HCC) documented in this encounter Results * Albumin, Random, Urine (02/12/2023 12:00 PM CARD TENDER) Microalbumin 22.3 mg/L 02/12/2023 12:17 PM CARD TENDER CNFL Creatinine 210 mg/dL 02/12/2023 12:17 PM CARD TENDER CNFL Albumin/Creatinin e Ratio 11 <25 mg/g 02/12/2023 12:17 PM CARD TENDER CNFL Urine (Urine, Midstream) 02/12/2023 12:00 PM CARD TENDER 02/12/2023 12:00 PM CARD TENDER Sarah Diaz APRN, C.N.P., D.N.P. LAB URINE ORDERABLES [facility] [address] [place] [address], [facility] CNFL [facility] in [address] [address] * (ABNORMAL) Lipid Panel (02/12/2023 11:51 AM CARD TENDER) Triglycerides 175(H) mg/dL 02/12/2023 12:25 PM CARD TENDER CNFL Comment: ----REFERENCE VALUE---- Normal: <150 mg/dL Borderline High: 150-199 mg/dL High: 200-499 mg/dL Very High: > or =500 mg/dL Cholesterol, Total 114 mg/dL 2023 12:25 PM CARD TENDER CNFL Comment: ----REFERENCE VALUE---- Desirable: < 200 mg/dL Borderline High: 200 - 239 mg/dL High: > or = 240 mg/dL Cholesterol, LDL, Calculated 35 mg/dL 02/12/2023 12:25 PM CARD TENDER CNFL Comment: ----REFERENCE VALUE---- Desirable: <100 mg/dL Above Desirable: 100-129 mg/dL Borderline High: 130-159 mg/dL High: 160-189 mg/dL Very High: >=190 mg/dL ----ADDITIONAL INFORMATION---- LDL cholesterol calculated using the Thomas/NIH equation. Cholesterol, HDL 51 >=50 mg/dL 02/12/19 12:25 PM CARD TENDER CNFL Cholesterol, Non-HDL, Calculated 63 mg/dL 02/12/2023 12:25 PM CARD TENDER CNFL Comment: ----REFERENCE VALUE---- Desirable: <130 mg/dL Above Desirable: 130-159 mg/dL Borderline High: 160-189 mg/dL High: 190-219 mg/dL Very High: > or =220 mg/dL Fasting (8 HR or more) No Yes 02/12/2023 12:00 PM CARD TENDER CNFL Blood (Blood, Venous) 02/12/2023 11:51 AM CARD TENDER 02/12/2023 12:00 PM CARD TENDER Sarah Diaz APRN C.N.P., D.N.P. LAB BLOOD ADD-ON [facility] [address] [place] [address], [facility] in [address] [address] * (ABNORMAL) S-TSH (Thyroid-Stimulating Hormone - Sensitive) (02/12/2023 11:51 AM CARD TENDER) TSH, Sensitive 0.2(L) 0.3 - 4.2 mIU/L 02/12/2023 12:34 PM CARD TENDER CNFL Blood (Blood, Venous) 02/12/2023 11:51 AM CARD TENDER 02/12/2023 12:00 PM CARD TENDER Sarah Phuong Diaz APRN, C.N.P., D.N.P. LAB BLOOD ADD-ON [facility] [address] [place] [address], [facility] CNFL [facility] [place] [address] * (ABNORMAL) Basic Metabolic Panel (02/12/2023 11:51 AM CARD TENDER) Potassium, P 4.7 3.6 - 5.2 mmol/L 02/12/2023 12:25 PM CARD TENDER CNFL Sodium, P 139 135 - 145 mmol/L 02/12/2023 12:25 PM CARD TENDER CNFL Chloride, P 100 98 - 107 mmol/L 02/12/2023 12:25 PM CARD TENDER CNFL Bicarbonate, P 30(H) 22 - 29 mmol/L 02/12/2023 12:25 PM CARD TENDER CNFL Anion Gap, P 9 7 - 15 02/12/2023 12:25 PM CARD TENDER CNFL BUN (Blood Urea Nitrogen), P 20 6 - 21 mg/dL 02/12/2023 12:25 PM CARD TENDER CNFL Creatinine 0.69 0.59 - 1.04 mg/dL 02/12/2023 12:25 PM CARD TENDER CNFL Estimated GFR (eGFR) 86 >=60 mL/min/BSA 02/12/2023 12:25 PM CARD TENDER CNFL Comment: Estimated GFR calculated using the 2020 CKD_EPI creatinine equation. Calcium, Total, P 10.7(H) 8.8 - 10.2 mg/dL 02/12/2023 12:25 PM CARD TENDER CNFL Glucose, P 143(H) 70 - 140 mg/dL 02/12/2023 12:25 PM CARD TENDER CNFL Blood (Blood, Venous) 02/12/2023 11:51 AM CARD TENDER 02/12/2023 12:00 PM CARD TENDER Sarah Diaz APRN, C.N.P., D.N.P. LAB BLOOD ADD-ON Performing Organization Address City/[facility] Co de Phone Number [address] [address], [facility] in [address] [address] * (ABNORMAL) Hemoglobin A1c (02/12/2023 11:51 AM CARD TENDER) Hemoglobin A1c, B 6.3(H) 4.2 - 5.6 % 02/12/2023 12:14 PM CARD TENDER [facility] Comment: Hemoglobin A1c values of 5.7-6.4 percent indicate an increased risk for developing diabetes mellitus. In diabetic patients, HbA1c goals should be discussed with healthcare provider. Blood (Blood, Venous) 02/12/2023 11:51 AM CARD TENDER 02/12/2023 12:00 PM CARD TENDER Sarah Diaz APRN, C.N.P., D.N.P. LAB BLOOD ADD-ON Performing Organization Address City/[facility] Co de Phone Number [address] [address], [place] [facility] in [address] [address] documented in this encounter Visit Diagnoses Diagnosis Hypertension Essential Primary- Primary Preoperative Exam Cataract Malignant Neoplasm Of Breast Female Left (HCC) Diabetes Mellitus Type 2 Without Complication (HCC) Hypothyroidism Hyperlipidemia History Of Falling documented in this encounter Additional Health Concerns Assessment Noted Time PHQ-9 Depression Total Score: 3 02/11/19 24 12:10 PM CARD TENDER documented as of this encounter Care Teams Bar Back Relationship Specialty Start Date End Date Annie Wu M.D. [address] [place] [phone] PCP - General 07/24/16 [facility] Eye Care Tool Analyst 02/12/23 [facility] Dental Dentist 02/12/23 [facility] Creative Designer 02/12/23 documented as of this encounter
--- OUTSIDE RECORDS SUMMARY | 2023-03-11 11:26 | XMS_ITS | Encounter Summary ---
Author Name Unknown Organization [facility] Address [address] [place] [address] Care Team Providers Care Lead Web Developer Name Role Phone Annie Wu M.D. Primary Care Pro vider Reason for Visit * Reason Comments Med Refill Encounter Details Date Type Department Care Team (Late st Contact Info) Description 11/24/2022 Refill Department of Family Medicine, [facility], in [address] [phone] Annie Wu M.D. [address] [place] [phone] Med Refill Social History Tobacco Use [...] How often do you attend chur or denominational services? More than 4 times per year 05/02/2022 Do you belong to any clubs o r organizations such as temple groups, unions, fraternal or athletic groups, or [...] Date Recorded PHQ-2 Score 3 02/11/2022 [facility] Questionnaire Answer Date Recorded [...] Sex Assigned at Female 04/12/2021 7:31 PM FIRE OBSERVER Gender Identity Female 04/12/2021 7:31 PM FIRE OBSERVER Sexual Orientation Straight 04/12/2021 7: 31 PM FIRE OBSERVER documented as of this encounter Plan of Treatment Upcoming Encounters Date Type Department Care Team (Latest Contact Info) Description 05/08/2023 12:00 PM CDT Clinical Communication Virtual Review in [place], [place] [address] [place] [address] 05/11/2023 10:30 AM CDT Appointment Department of Radiology in [place], [place] [address] [place] [address] Neptali Henning M.D. [address] [place] [address] Discharge Disposition: Home or Self Care 05/11/2023 12:40 PM CDT Appointment Department of Radiology, [facility], in [place], [place] [address] [place] [address] Neptali Henning M.D. [address] [place] [address] Discharge Disposition: Home or Self Care 05/11/2023 3:30 PM CDT Office Visit Breast Diagnostic Clinic in [place], [place] [address] [place] [address] Neptali Henning M.D. [address] [place] [phone] documented as of this encounter Goals Goal Patient Goal Type Associated Problems Recent Progress Patient-Stated? Author Patient/caregiver will be independent in managing appointments General No Shital Gonzalez, RBrnowynNBronwyn Note: Patient to follow up with orthopedics regarding knee pain. documented as of this encounter Visit Diagnoses Not on filedocumented in this encounter Additional Health Concerns Assessment Noted Time PHQ-9 Depression Total Score: 9 02/11/19 23 9:15 AM FIRE OBSERVER documented as of this encounter Care Teams Lead Web Developer Relationship Specialty Start Date End Date Annie Wu M.D. [address] [phone] PCP - General 07/24/16 documented as of this encounter
--- OUTSIDE RECORDS SUMMARY | 2023-03-11 11:26 | XMS_ITS | Encounter Summary ---
Author Name Unknown Organization [facility] Address [address] [place] [address] Care Team Providers Care Log Grader Name Role Phone Annie Wu M.D. Primary Care Pro vider Reason for Referral * Outpatient (Routine) - Closed Specialty Diagnoses / Procedures Referred By Contac t Referred To Contact Diagnoses Prophylactic Use Aromatase Inhibitor Osteopenia Procedures BMD Bone Density Spine Hips Neptali Henning M.D. [address] [place] [address] [facility] Referral ID Status Reason Start Date Expiration Date Visits Re quested Visits Authorized [id number] Closed 11/01/2021 11/01/2022 1 1 Reason for Visit * Outpatient (Routine) - Closed Specialty Diagnoses / Procedures Referred By Josefina gauthier Referred To Contact Diagnoses Prophylactic Use Aromatase Inhibitor Osteopenia Procedures BMD Bone Density Spine Hips Neptali Henning M.D. [address] [place] [address] [facility] Referral ID Status Reason Start Date Expiration Date Visits Re quested Visits Authorized [id number] Closed 11/01/2021 11/01/2022 1 1 Encounter Details Date Type Department Care Team (Latest Contact Info) Description 05/07/2022 12:03 PM CDT - 05/07/2022 11:59 PM CDT Hospital Encounter Department of Radiology, [facility], in [place], [place] 200 [place] [address] Neptali Henning M.D. 200 [place] [address] Prophylactic Use Aromatase Inhibitor; Osteopenia Discharge Disposition: [...] How often do you attend chur or episcopal services? More than 4 times per year [...] Answer Date Recorded PHQ-2 Score 3 02/11/2022 [facility] - Occupational Stress Questionnaire Answer Date Recorded [...] Sex Assigned at Female 04/12/2021 7:31 PM UPSETTER Gender Identity Female 04/12/2021 7:31 PM UPSETTER Sexual Orientation Straight 04/12/2021 7: 31 PM UPSETTER documented as of this encounter Medications at Time of Discharge Medication Sig Dispensed Refills Start Date End Date acetaminophen (TYLENOL) 500 mg tablet Take 2 tablets (1,000 mg total) by mouth every 6 (six) hours as needed for pain. 100 tablet 0 01/17/[address] tablet Take 81 mg by mouth daily. 0 [id number] ORAL Take 1 tablet by mouth daily. [...] PM CDT Clinical Communication Virtual Review in [place], [place] 200 [place] [address] 05/11/2023 10:30 AM CDT Appointment Department of Radiology in [address] [address] Neptali Henning M.D. [address] [place] [phone] Discharge Disposition: Home or Self Care 05/11/2023 12:40 PM CDT Appointment Department of Radiology, [facility], in [address] [address] Neptali Henning M.D. [address] [place] [phone] Discharge Disposition: Home or Self Care 05/11/2023 3:30 PM CDT Office Visit Breast Diagnostic Clinic in [address] [address] Neptali Henning M.D. [address] [place] [phone] documented as of this encounter Goals Goal Patient Goal Type Associated Problems Recent Progress Patient-Stated? Author Patient/caregiver will be independent in managing appointments Shital Murray R.N. Note: Patient to follow up with [...] Bone Mineral Density (BMD) analysis performed on [employer] with serial number [id number]. COMPARISON: Serial Comparisons Left Total Hip results: [...] including images and graphs, is available in [employer]. In the absence of other causes of [...] reliable for future follow-up. Procedure Note Garfield Florez M.D. - 05/07/2022 EXAM: BMD BONE DENSITY SPINE HIPS Bone Mineral Density (BMD) analysis performed on [employer] with serialnumber [id number]. COMPARISON: Serial Comparisons Left Total Hip results: [...] Total Score: 9 02/11/19 23 9:15 AM UPSETTER documented as of this encounter Care Teams Log Grader Relationship Specialty Start Date End Date Annie Wu M.D. [address] [phone] PCP - General 07/24/16 documented as of this encounter
--- OUTSIDE RECORDS SUMMARY | 2023-03-11 11:26 | XMS_ITS | Encounter Summary ---
Author Name Unknown Organization [facility] Address [address] [place] [address] Care Team Providers Care Sheet Metal Assembler Name Role Phone Annie Wu M.D. Primary Care Pro vider Encounter Details Date Type Department Care Team (Late st Contact Info) Description 02/10/2023 [facility] [address] [place] [phone] Monitoring For Therapeutic Drug Therapy; Hypothyroidism [...] often do you attend chur ch or nondenominational services? More than 4 times per year [...] Answer Date Recorded PHQ-2 Score 0 02/11/2023 [facility]at ional [facility] - [...] Sex Assigned at Female 04/12/2021 7:31 PM JAVA CONSULTANT Gender Identity Female 04/12/2021 7:31 PM JAVA CONSULTANT Sexual Orientation Straight 04/12/2021 7: 31 PM JAVA CONSULTANT documented as of this encounter Plan of Treatment Upcoming Encounters Date Type Department Care Team (Latest Contact Info) Description 05/08/2023 12:00 PM CDT Clinical Communication Virtual Review in [place], [place] 200 [place] [address] 05/11/2023 10:30 AM CDT Appointment Department of Radiology in [place], [place] [address] [place] [phone] Neptali Henning M.D. [address] [place] [phone] Discharge Disposition: Home or Self Care 05/11/2023 12:40 PM CDT Appointment Department of Radiology, [facility], in [place], [place] [address] [place] [address] Neptali Henning M.D. [address] [place] [address] Discharge Disposition: Home or Self Care 05/11/2023 3:30 PM CDT Office Visit Breast Diagnostic Clinic in [place], [place] [address] [place] [address] Neptali Henning M.D. [address] [place] [address] documented as of this encounter Goals Goal [...] Total Score: 9 02/11/19 23 9:15 AM JAVA CONSULTANT documented as of this encounter Care Teams Sheet Metal Assembler Relationship Specialty Start Date End Date Annie Wu M.D. [address] [phone] PCP - General 07/24/16 documented as of this encounter
--- OUTSIDE RECORDS SUMMARY | 2023-03-11 11:26 | XMS_ITS | Encounter Summary ---
Author Name Unknown Organization [facility] Address [address] [place] [address] Care Team Providers Care Aws Solution Architect Name Role Phone Annie Wu M.D. Primary Care Pro vider Reason for Visit * Reason Comments Med Refill Encounter Details Date Type Department Care Team (Late st Contact Info) Description 08/13/2022 Refill Department of Family Medicine, [facility], in [address] [phone] Annie Wu M.D. [address] [place] [phone] Med Refill Social History Tobacco Use [...] How often do you attend chur or rastafari services? More than 4 times per year 05/02/2022 Do you belong to any clubs o r organizations such as judaism groups, unions, fraternal or athletic groups, or [...] Date Recorded PHQ-2 Score 3 02/11/2022 [facility] Questionnaire Answer Date [...] Sex Assigned at Female 04/12/2021 7:31 PM TURF SALES PERSON Gender Identity Female 04/12/2021 7:31 PM TURF SALES PERSON Sexual Orientation Straight 04/12/2021 7: 31 PM TURF SALES PERSON documented as of this encounter Miscellaneous Notes * Telephone Encounter - Alma Payton - 08/14/2022 9:45 AM CDT Should have refill(s) remaining from 02/11/22 RX of 90 tabs/3 refills e-scribed to [facility]. documented in this encounter Plan of Treatment Upcoming Encounters Date Type Department Care Team (Latest Contact Info) Description 05/08/2023 12:00 PM CDT Clinical Communication Virtual Review in [place], [place] 200 [place] [address] 05/11/2023 10:30 AM CDT Appointment Department of Radiology in [place], [place] [address] [place] [phone] Neptali Henning M.D. [address] [place] [phone] Discharge Disposition: Home or Self Care 05/11/2023 12:40 PM CDT Appointment Department of Radiology, [facility] in [place], [place] [address] [place] [phone] Neptali Henning M.D. [address] [place] [phone] Discharge Disposition: Home or Self Care 05/11/2023 3:30 PM CDT Office Visit Breast Diagnostic Clinic in [address] [phone] Neptali Henning M.D. [address] [place] [phone] documented as of this encounter Goals Goal [...] Total Score: 9 02/11/19 23 9:15 AM TURF SALES PERSON documented as of this encounter Care Teams Aws Solution Architect Relationship Specialty Start Date End Date Annie Wu M.D. [address] [place] [phone] PCP - General 07/24/16 documented as of this encounter
--- OUTSIDE RECORDS SUMMARY | 2023-03-11 11:26 | XMS_ITS | Encounter Summary ---
Author Name Unknown Organization [facility] Address [address] [place] [address] Care Team Providers Care Tank Truck Milk Receiver Name Role Phone Annie Wu M.D. Primary Care Pro vider Reason for Visit * Reason Comments Med Refill Encounter Details Date Type Department Care Team (Late st Contact Info) Description 01/26/2023 Refill Department of Family Medicine, [facility], in [address] [phone] Annie Wu M.D. [address] [place] [phone] Med Refill Social History Tobacco Use [...] How often do you attend chur or faith services? More than 4 times per year [...] Answer Date Recorded PHQ-2 Score 3 02/11/2022 [facility] Questionnaire Answer Date [...] Sex Assigned at Female 04/12/2021 7:31 PM MANUFACTURING PRODUCTION TECHNICIAN Gender Identity Female 04/12/2021 7:31 PM MANUFACTURING PRODUCTION TECHNICIAN Sexual Orientation Straight 04/12/2021 7: 31 PM MANUFACTURING PRODUCTION TECHNICIAN documented as of this encounter Miscellaneous Notes * Telephone Encounter - Rosi Cordon - 01/27/2023 7:15 AM CST Lab Results Component Value Date TSH 1.2 02/25/2022 FACTURING PRODUCTION TECHNICIAN documented in this encounter Plan of Treatment Upcoming Encounters Date Type Department Care Team (Latest Contact Info) Description 05/08/2023 12:00 PM CDT Clinical Communication Virtual Review in [place], [place] 200 [place] [address] 05/11/2023 10:30 AM CDT Appointment Department of Radiology in [address] [phone] Neptali Henning M.D. [address] [place] [phone] Discharge Disposition: Home or Self Care 05/11/2023 12:40 PM CDT Appointment Department of Radiology, [facility] in [address] [address] Neptali Henning M.D. [address] [place] [phone] Discharge Disposition: Home or Self Care 05/11/2023 3:30 PM CDT Office Visit Breast Diagnostic Clinic in [address] [phone] Neptali Henning M.D. [address] [place] [phone] documented as of this encounter Goals Goal [...] Total Score: 9 02/11/19 23 9:15 AM MANUFACTURING PRODUCTION TECHNICIAN documented as of this encounter Care Teams Tank Truck Milk Receiver Relationship Specialty Start Date End Date Annie Wu M.D. [address] [place] [phone] PCP - General 07/24/16 documented as of this encounter
--- OUTSIDE RECORDS SUMMARY | 2023-03-11 11:26 | XMS_ITS | Encounter Summary ---
Author Name Unknown Organization [facility] Address [address] [place] [address] Care Team Providers Care Tawer Name Role Phone Annie Wu M.D. Primary Care Pro vider Reason for Referral * Outpatient (Routine) - Closed Specialty Diagnoses / Procedures Referred By Josefina gauthier Referred To Contact Annie Wu M.D. [address] [phone] [facility] Referral ID Status Reason Start Date Expiration Date Visits Re quested Visits Authorized [id number] Closed 08/19/2022 08/18/2025 1 1 Scheduling Instructions Nurse AWV Do not schedule prior to due date to ensure insurance coverage Visit: Medicare Annual Wellness Never done. Encounter Details Date Type Department Care Team (Late st Contact Info) Description 08/19/[address] [facility] Wu M.D. [address] [place] [phone] Diabetes Mellitus Type 2 Without Complication [...] week 05/02/2022 How often do you attend [employer] [place] or baptism services? More than 4 times per year [...] Answer Date Recorded PHQ-2 Score 3 02/11/2022 [facility] - Occupational [...] Sex Assigned at Female 04/12/2021 7:31 PM SHOT CORE DRILL OPERATOR Gender Identity Female 04/12/2021 7:31 PM SHOT CORE DRILL OPERATOR Sexual Orientation Straight 04/12/2021 7: 31 PM SHOT CORE DRILL OPERATOR documented as of this encounter Plan of Treatment Upcoming Encounters Date Type Department Care Team (Latest Contact Info) Description 05/08/2023 12:00 PM CDT Clinical Communication Virtual Review in [place], [place] 200 [place] [address] 05/11/2023 10:30 AM CDT Appointment Department of Radiology in [place], [place] [address] [place] [phone] Neptali Henning M.D. [address] [place] [phone] Discharge Disposition: Home or Self Care 05/11/2023 12:40 PM CDT Appointment Department of Radiology, [facility], in [place], [place] [address] [place] [phone] Neptali Henning M.D. [address] [place] [phone] Discharge Disposition: Home or Self Care 05/11/2023 3:30 PM CDT Office Visit Breast Diagnostic Clinic in [address] [phone] Neptali Henning M.D. [address] [place] [phone] Scheduled Referrals Name Type Priority Associated Diagnoses Orde r Schedule Primary Care nurse visit (clinic) - [facility] Region; Medicare Annual Wellness Outpatient Referral Routine [...] Total Score: 9 02/11/19 23 9:15 AM SHOT CORE DRILL OPERATOR documented as of this encounter Care Teams Tawer Relationship Specialty Start Date End Date Annie Wu M.D. [address] [phone] PCP - General 07/24/16 documented as of this encounter
--- OUTSIDE RECORDS SUMMARY | 2023-03-11 11:26 | XMS_ITS | Encounter Summary ---
Author Name Unknown Organization [facility] Address [address] [place] [address] Care Team Providers Care Gold Leaf Roller Name Role Phone Annie Wu M.D. Primary Care Pro vider Reason for Referral * Outpatient (Routine) - Authorized Specialty Diagnoses / Procedures Referred By Josefina gauthier Referred To Contact Jazzy Street M.D. [address] [place] [phone] [facility] Region Referral ID Status Reason Start Date Expiration Date V isits Requested Visits Authorized [id number] Authorized 02/12/2023 02/11/2026 1 1 Scheduling Instructions 12-Month Medicare Visit & PRESIDENT Reason for Visit * Reason Comments Medicare Annual Wellness Visit Subsequen t * Outpatient (Routine) - Closed Specialty Diagnoses / Procedures Referred By Josefina gauthier Referred To Contact Annie Wu M.D. [address] [place] [phone] [facility] [place] Referral ID Status Reason Start Date Expiration Date Visits Re quested Visits Authorized [id number] Closed 08/19/2022 08/18/2025 1 1 Encounter Details Date Type Department Care Team (Late st Contact Info) Description 02/12/2023 12:00 PM CCO & PRESIDENT Office Visit Department of Family Medicine, [facility], in [address] [phone] Annie Wu M.D. [address] [place] [phone] Gloria Haney R.N. [address] [place] [phone] Annual Medicare Examination Return (Primary Dx) Discharge Disposition: Home or Self Care Social History Tobacco Use Types Packs/Day Years Used Date Smoking Tobacco: Never Smokeless Tobacco: Never Alcohol Use Standard Drinks/Week Comments No 0 (1 standard drink = 0.6 oz pur e alcohol) [facility] Utilities Answer Date Recorded In the past 12 months has e electric, gas, oil, or water [employer] threatened to shut off services in your [...] often do you attend chur ch or protestant services? More than 4 times per year 05/02/2022 Do you belong to any clubs o r organizations such as methodist groups, unions, fraternal or athletic groups, or [...] Answer Date Recorded PHQ-2 Score 0 02/11/2023 [facility] [place] of Occupat ional Health - Occupational Stress [...] Sex Assigned at Female 04/12/2021 7:31 PM CCO & PRESIDENT Gender Identity Female 04/12/2021 7:31 PM CCO & PRESIDENT Sexual Orientation Straight 04/12/2021 7: 31 PM CCO & PRESIDENT documented as of this encounter Progress Notes [...] patient will access via patient online services & PRESIDENT documented in this encounter Plan of Treatment Upcoming Encounters Date Type Department Care Team (Latest Contact Info) Description 05/08/2023 12:00 PM CDT Clinical Communication Virtual Review in [address] [address] 05/11/2023 10:30 AM CDT Appointment Department of Radiology in [address] [phone] Neptali Henning M.D. [address] [place] [phone] Discharge Disposition: Home or Self Care 05/11/2023 12:40 PM CDT Appointment Department of Radiology, [facility], in [address] [phone] Neptali Henning M.D. [address] [place] [phone] Discharge Disposition: Home or Self Care 05/11/2023 3:30 PM CDT Office Visit Breast Diagnostic Clinic in [address] [address] Neptali Henning M.D. [address] [place] [phone] Scheduled Referrals Name Type Priority Associated Diagnoses Orde r Schedule Primary Care nurse visit (clinic) - [facility] Region; Medicare Annual Wellness Outpatient Referral [...] Total Score: 3 02/11/19 24 12:10 PM CCO & PRESIDENT documented as of this encounter Care Teams Gold Leaf Roller Relationship Specialty Start Date End Date Annie Wu M.D. [address] [phone] PCP - General 07/24/16 [facility] Senior Dynamics Crm Developer 02/12/23 [facility] Dentist 02/12/23 [facility] Nutrition Counselor 02/12/23 documented as of this encounter
--- OUTSIDE RECORDS SUMMARY | 2023-03-11 11:26 | XMS_ITS | Encounter Summary ---
Author Name Unknown Organization [facility] Address [address] [place] [address] Care Team Providers Care Bisque Placer Name Role Phone Annie Wu M.D. Primary Care Pro vider Reason for Visit * Reason Comments Med Refill Encounter Details Date Type Department Care Team (Late st Contact Info) Description 11/24/2022 Refill Department of Family Medicine, [facility], in [address] [phone] Emre Brewster M.D., Ph.D. [address] [place] [phone] Med Refill Social History Tobacco Use [...] How often do you attend chur or scientologist services? More than 4 times per year 05/02/2022 Do you belong to any clubs o r organizations such as scientologist groups, unions, fraternal or athletic groups, or [...] Answer Date Recorded PHQ-2 Score 3 02/11/2022 [facility] - [facility]ational [facility] Questionnaire Answer Date [...] Sex Assigned at Female 04/12/2021 7:31 PM MASONRY CONTRACTOR ADMINISTRATOR Gender Identity Female 04/12/2021 7:31 PM MASONRY CONTRACTOR ADMINISTRATOR Sexual Orientation Straight 04/12/2021 7: 31 PM MASONRY CONTRACTOR ADMINISTRATOR documented as of this encounter Plan of Treatment Upcoming Encounters Date Type Department Care Team (Latest Contact Info) Description 05/08/2023 12:00 PM CDT Clinical Communication Virtual Review in [place], [place] [address] [place] [address] 05/11/2023 10:30 AM CDT Appointment Department of Radiology in [place], [place] [address] [place] [address] Neptali Henning M.D. [address] [place] [address] Discharge Disposition: Home or Self Care 05/11/2023 12:40 PM CDT Appointment Department of Radiology, [facility], in [place], [place] [address] [place] [address] Neptali Henning M.D. [address] [place] [address] Discharge Disposition: Home or Self Care 05/11/2023 3:30 PM CDT Office Visit Breast Diagnostic Clinic in [place], [place] [address] [place] [address] Neptali Henning M.D. [address] [place] [phone] documented as of this encounter Goals Goal [...] Total Score: 9 02/11/19 23 9:15 AM MASONRY CONTRACTOR ADMINISTRATOR documented as of this encounter Care Teams Bisque Placer Relationship Specialty Start Date End Date Annie Wu M.D. [address] [phone] PCP - General 07/24/16 documented as of this encounter
--- OUTSIDE RECORDS SUMMARY | 2023-03-11 11:26 | XMS_ITS | Encounter Summary ---
Author Name Unknown Organization [facility] Address [address] [place] [address] Care Team Providers Care Decorative Greens Cutter Name Role Phone Annie Wu M.D. Primary Care Pro vider Reason for Visit * Reason Comments Med Refill Encounter Details Date Type Department Care Team (Late st Contact Info) Description 11/25/2022 Refill Department of Family Medicine, [facility], in [address] [phone] Annie Wu M.D. [address] [place] [phone] Med Refill Social History Tobacco Use [...] How often do you attend chur or mu-ism services? More than 4 times per year 05/02/2022 Do you belong to any clubs o r organizations such as pentecostalism groups, unions, fraternal or athletic groups, or [...] Answer Date Recorded PHQ-2 Score 3 02/11/2022 [facility] Questionnaire Answer Date [...] Sex Assigned at Female 04/12/2021 7:31 PM FOURCHETTE SEWER Gender Identity Female 04/12/2021 7:31 PM FOURCHETTE SEWER Sexual Orientation Straight 04/12/2021 7: 31 PM FOURCHETTE SEWER documented as of this encounter Plan of Treatment Upcoming Encounters Date Type Department Care Team (Latest Contact Info) Description 05/08/2023 12:00 PM CDT Clinical Communication Virtual Review in [place], [place] [address] [place] [address] 05/11/2023 10:30 AM CDT Appointment Department of Radiology in [place], [place] [address] [place] [address] Neptali Henning M.D. [address] [place] [address] Discharge Disposition: Home or Self Care 05/11/2023 12:40 PM CDT Appointment Department of Radiology, [facility], in [place], [place] [address] [place] [address] Neptali Henning M.D. [address] [place] [address] Discharge Disposition: Home or Self Care 05/11/2023 3:30 PM CDT Office Visit Breast Diagnostic Clinic in [place], [place] [address] [place] [address] Neptali Henning M.D. [address] [place] [phone] documented as of this encounter Goals Goal [...] Total Score: 9 02/11/19 23 9:15 AM FOURCHETTE SEWER documented as of this encounter Care Teams Decorative Greens Cutter Relationship Specialty Start Date End Date Annie Wu M.D. [address] [phone] PCP - General 07/24/16 documented as of this encounter
--- OUTSIDE RECORDS SUMMARY | 2023-03-11 11:27 | XMS_ITS | Encounter Summary ---
Author Name Unknown Organization [facility] Address [address] [place] [address] Care Team Providers Care Commodity Buyer Name Role Phone Annie Wu M.D. Primary Care Pro vider Encounter Details Date Type Department Care Team (Late st Contact Info) Description 10/10/2005 Historical Ophthalmology RST OPH Anna Thurston M.D. [address] [place] [address] Social History Tobacco Use Types Packs/Day Years Used Date Smoking Tobacco: Never Assessed Sex and Gender Information Value Date Recorded Sex Assigned at Female 04/12/2021 7:31 PM CORN LAB TECHNICIAN Gender Identity Female 04/12/2021 7:31 PM CORN LAB TECHNICIAN Sexual Orientation Straight 04/12/2021 7: 31 PM CORN LAB TECHNICIAN documented as of this encounter Progress Notes * Anna Thurston M.D. - 10/10/2005 12:00 AM CDT Eye General CHIEF COMPLAINT Recheck HISTORY OF PRESENT ILLNESS Vision is the same. No floaters or flashes of light. No pain. 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 in [place] 03/2005 #2 Macular edema, - secondary to #1 - mild Vision improved to 20/20 #3 Cataracts, moderate monitor OCT Right: normal Left: Cystoid macular edema has completey resolved FU 6 months CDM Reports - EYEGEN Id: [id number] Status: Fnl documented in this encounter Plan of Treatment Upcoming Encounters Date Type Department Care Team (Latest Contact Info) Description 05/08/2023 12:00 PM CDT Clinical Communication Virtual Review in [place], [place] [address] [place] [address] 05/11/2023 10:30 AM CDT Appointment Department of Radiology in [place], [place] [address] [place] [phone] Neptali Henning M.D. [address] [place] [phone] Discharge Disposition: Home or Self Care 05/11/2023 12:40 PM CDT Appointment Department of Radiology, [facility] in [place], [place] [address] [place] [phone] Neptali Henning M.D. [address] [place] [phone] Discharge Disposition: Home or Self Care 05/11/2023 3:30 PM CDT Office Visit Breast Diagnostic Clinic in [address] [address] Neptali Henning M.D. [address] [place] [phone] documented as of this encounter Visit Diagnoses Not on filedocumented in this encounter Care Teams Commodity Buyer Relationship Specialty Start Date End Date Annie Wu M.D. [address] [place] [phone] PCP - General 07/24/16 [facility] Retail Product Demo Specialist 02/12/23 [facility] 02/12/23 [facility] Job Counselor 02/12/23 documented as of this encounter
--- OUTSIDE RECORDS SUMMARY | 2023-03-11 11:27 | XMS_ITS | Encounter Summary ---
Author Name Unknown Organization [facility] Address [address] [place] [address] Care Team Providers Care Optical Scientist Name Role Phone Annie Wu M.D. Primary Care Pro vider Encounter Details Date Type Department Care Team (Late st Contact Info) Description 06/02/2006 Historical Ophthalmology RST OPH Anna Thurston M.D. [address] [place] [address] Social History Tobacco Use Types Packs/Day Years Used Date Smoking Tobacco: Never Assessed Sex and Gender Information Value Date Recorded Sex Assigned at Female 04/12/2021 7:31 PM TRANSMISSION ASSEMBLER Gender Identity Female 04/12/2021 7:31 PM TRANSMISSION ASSEMBLER Sexual Orientation Straight 04/12/2021 7: 31 PM TRANSMISSION ASSEMBLER documented as of this encounter Progress Notes [...] eye s/p macular grid laser treatment in [place] 03/2005 #2 s/p CME , left eye #3 Cataracts, moderate monitor Stable. 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 [address] [place] [phone] Discharge Disposition: Home or Self Care 05/11/2023 12:40 PM CDT Appointment Department of Radiology, [facility], in [address] [address] Neptali Henning M.D. [address] [place] [phone] Discharge Disposition: Home or Self Care 05/11/2023 3:30 PM CDT Office Visit Breast Diagnostic Clinic in [address] [address] Neptali Henning M.D. [address] [place] [phone] documented as of this encounter Visit Diagnoses Not on filedocumented in this encounter Care Teams Optical Scientist Relationship Specialty Start Date End Date Annie Wu M.D. [address] [place] [phone] PCP - General 6/15/17 [facility] Pediatric Licensed Practical Nurse 02/12/23 [facility] 02/12/23 [facility] Tin Container Straightener 02/12/23 documented as of this encounter
--- OUTSIDE RECORDS SUMMARY | 2023-03-11 11:27 | XMS_ITS | Encounter Summary ---
Author Name Unknown Organization [facility] Address [address] [place] [address] Care Team Providers Care Counter Helper Name Role Phone Annie Wu M.D. Primary Care Pro vider Reason for Referral * Outpatient (Routine) - Closed Specialty Diagnoses / Procedures Referred By Josefina gauthier Referred To Contact Diagnoses Intraductal Carcinoma In Situ Of Left Breast Procedures BI Breast Diagnostic Left with Tomosynthesis Neptali Henning M.D. 200 [place] [address] [facility] Referral ID Status Reason Start Date Expiration Date Visits Re quested Visits Authorized [id number] Closed 11/01/2021 11/01/2022 1 1 Reason for Visit * Outpatient (Routine) - Closed Specialty Diagnoses / Procedures Referred By Josefina gauthier Referred To Contact Diagnoses Intraductal Carcinoma In Situ Of Left Breast Procedures BI Breast Diagnostic Left with TomosyntheNeptali Henao M.D. [address] [place] [address] [facility] Referral ID Status Reason Start Date Expiration Date Visits Re quested Visits Authorized [id number] Closed 11/01/2021 11/01/2022 1 1 Encounter Details Date Type Department Care Team (Latest Contact Info) Description 05/07/2022 9:45 AM CDT - 05/07/2022 10:48 AM CDT Hospital Encounter Department of Radiology in [place], [place] [address] [place] [address] Neptali Henning M.D. [address] [place] [address] Intraductal Carcinoma In Situ Of Left Breast [...] How often do you attend chur or tenriism services? More than 4 times per year 05/02/2022 Do you belong to any clubs o r organizations such as baptism groups, unions, fraternal or athletic groups, or [...] Recorded PHQ-2 Score 3 02/11/2022 [facility]at ional [facility] - [...] Sex Assigned at Female 04/12/2021 7:31 PM SOFTWARE QUALITY ASSURANCE ENGINEER Gender Identity Female 04/12/2021 7:31 PM SOFTWARE QUALITY ASSURANCE ENGINEER Sexual Orientation Straight 04/12/2021 7: 31 PM SOFTWARE QUALITY ASSURANCE ENGINEER documented as of this encounter Medications at Time of Discharge Medication Sig Dispensed Refills Start Date End Date acetaminophen (TYLENOL) 500 mg tablet Take 2 tablets (1,000 mg total) by mouth every 6 (six) hours as needed for pain. 100 tablet 0 01/17/[address] tablet Take 81 mg by mouth daily. 0 [id number] ORAL Take 1 tablet by mouth daily. [...] PM CDT Clinical Communication Virtual Review in [place], [place] [address] [place] [address] 05/11/2023 10:30 AM CDT Appointment Department of Radiology in [place], [place] [address] [place] [phone] Neptali Henning M.D. [address] [place] [phone] Discharge Disposition: Home or Self Care 05/11/2023 12:40 PM CDT Appointment Department of Radiology, [facility], in [place], [place] [address] [place] [phone] Neptali Henning M.D. [address] [place] [phone] Discharge Disposition: Home or Self Care 05/11/2023 3:30 PM CDT Office Visit Breast Diagnostic Clinic in [place], [place] [address] [place] [phone] Neptali Henning M.D. [address] [place] [phone] documented as of this encounter Goals Goal [...] Total Score: 9 02/11/19 23 9:15 AM SOFTWARE QUALITY ASSURANCE ENGINEER documented as of this encounter Care Teams Counter Helper Relationship Specialty Start Date End Date Annie Wu M.D. NPMamta: [phone] [id number] [phone] PCP - General 07/24/16 documented as of this encounter
--- OUTSIDE RECORDS SUMMARY | 2023-03-11 11:27 | XMS_ITS | Encounter Summary ---
Author Name Unknown Organization [facility] Address [address] [place] [address] Care Team Providers Care Fuse Cutter Name Role Phone Annie Wu M.D. Primary Care Pro vider Reason for Visit * Reason Comments Med Refill Encounter Details Date Type Department Care Team (Late st Contact Info) Description 05/01/2022 Refill Department of Family Medicine, [facility], in [address] [phone] Ivory Polanco M.D. [address] [place] [phone] Med Refill Social History Tobacco Use [...] How often do you attend chur or baptist services? More than 4 times per year 05/02/2022 Do you belong to any clubs o r organizations such as protestant groups, unions, fraternal or athletic groups, or [...] Answer Date Recorded PHQ-2 Score 3 02/11/2022 [facility] Answer [...] Sex Assigned at Female 04/12/2021 7:31 PM DAIRY FEED MIXING OPERATOR Gender Identity Female 04/12/2021 7:31 PM DAIRY FEED MIXING OPERATOR Sexual Orientation Straight 04/12/2021 7: 31 PM DAIRY FEED MIXING OPERATOR documented as of this encounter Miscellaneous Notes * Telephone Encounter - Lia Sanders - 05/01/2022 8:36 AM CDT Lab Results Component Value Date TSH 1.2 02/25/2022 documented in this encounter Plan of Treatment Upcoming Encounters Date Type Department Care Team (Latest Contact Info) Description 05/08/2023 12:00 PM CDT Clinical Communication Virtual Review in [place], [place] 200 [place] [address] 05/11/2023 10:30 AM CDT Appointment Department of Radiology in [place], [place] [address] [place] [phone] Neptali Henning M.D. [address] [place] [phone] Discharge Disposition: Home or Self Care 05/11/2023 12:40 PM CDT Appointment Department of Radiology, [facility], in [place], [place] [address] [place] [phone] Neptali Henning M.D. [address] [place] [phone] Discharge Disposition: Home or Self Care 05/11/2023 3:30 PM CDT Office Visit Breast Diagnostic Clinic in [address] [phone] Neptali Henning M.D. [address] [place] [phone] documented as of this encounter Goals Goal [...] Total Score: 9 02/11/19 23 9:15 AM DAIRY FEED MIXING OPERATOR documented as of this encounter Care Teams Fuse Cutter Relationship Specialty Start Date End Date Annie Wu M.D. [address] [phone] PCP - General 07/24/16 documented as of this encounter
--- OUTSIDE RECORDS SUMMARY | 2023-03-11 11:27 | XMS_ITS | Encounter Summary ---
Author Name Unknown Organization [facility] Address [address] [place] [address] Care Team Providers Care Restorative Rehab Aide Name Role Phone Annie Wu M.D. Primary Care Pro vider Encounter Details Date Type Department Care Team (Late st Contact Info) Description 06/10/2004 Historical Ophthalmology RST OPH Sapphire Mcfarlane M.D. Social History Tobacco Use Types Packs/Day Years Used Date Smoking Tobacco: Never Assessed Sex and Gender Information Value Date Recorded Sex Assigned at Female 04/12/2021 7:31 PM WOOD PLANER Gender Identity Female 04/12/2021 7:31 PM WOOD PLANER Sexual Orientation Straight 04/12/2021 7: 31 PM WOOD PLANER documented as of this encounter Progress Notes [...] hyperopia, presbyopia). CDM Reports - EYEGEN Id: [id number] Status: Fnl documented in this encounter Plan of Treatment Upcoming Encounters Date Type Department Care Team (Latest Contact Info) Description 05/08/2023 12:00 PM CDT Clinical Communication Virtual Review in [address] [address] 05/11/2023 10:30 AM CDT Appointment Department of Radiology in [address] [address] Neptali Henning M.D. [address] [place] [phone] Discharge Disposition: Home or Self Care 05/11/2023 12:40 PM CDT Appointment Department of Radiology, [facility], in [address] [phone] Neptali Henning M.D. [address] [place] [phone] Discharge Disposition: Home or Self Care 05/11/2023 3:30 PM CDT Office Visit Breast Diagnostic Clinic in [address] [address] Neptali Henning M.D. [address] [place] [phone] documented as of this encounter Visit Diagnoses Not on filedocumented in this encounter Care Teams Restorative Rehab Aide Relationship Specialty Start Date End Date Annie Wu M.D. [address] [phone] PCP - General 07/24/16 [facility] Quality Reviewer 02/12/23 [facility] 02/12/23 [facility] Home Economics Agent 02/12/23 documented as of this encounter
--- OUTSIDE RECORDS SUMMARY | 2023-03-11 11:27 | XMS_ITS | Encounter Summary ---
Author Name Unknown Organization [facility] Address [address] [place] [address] Care Team Providers Care Bilingual Kindergarten Teacher Name Role Phone Annie Wu M.D. Primary Care Pro vider Encounter Details Date Type Department Care Team (Late st Contact Info) Description 07/11/2008 Historical Ophthalmology RST OPH Ursula Lima O.D. [address] [place] [address] Social History Tobacco Use Types Packs/Day Years Used Date Smoking Tobacco: Never Assessed Sex and Gender Information Value Date Recorded Sex Assigned at Female 04/12/2021 7:31 PM PRESS SMITH HELPER Gender Identity Female 04/12/2021 7:31 PM PRESS SMITH HELPER Sexual Orientation Straight 04/12/2021 7: 31 PM PRESS SMITH HELPER documented as of this encounter Progress Notes [...] eye s/p macular grid laser treatment in [place] 03/2005 #2 s/p CME , left eye [...] both eyes CDM Reports - EYEGEN Id: [id number] Status: Fnl documented in this encounter Plan of Treatment Upcoming Encounters Date Type Department Care Team (Latest Contact Info) Description 05/08/2023 12:00 PM CDT Clinical Communication Virtual Review in [address] [address] 05/11/2023 10:30 AM CDT Appointment Department of Radiology in [address] [address] Neptali Henning M.D. [address] [place] [phone] Discharge Disposition: Home or Self Care 05/11/2023 12:40 PM CDT Appointment Department of Radiology, [facility], in [address] [address] Neptali Henning M.D. [address] [place] [phone] Discharge Disposition: Home or Self Care 05/11/2023 3:30 PM CDT Office Visit Breast Diagnostic Clinic in [address] [address] Neptali Henning M.D. [address] [place] [phone] documented as of this encounter Visit Diagnoses Not on filedocumented in this encounter Additional Health Concerns Assessment Noted Time PHQ-9 Depression Total Score: 7 03/28/19 09 10:22 AM PRESS SMITH HELPER documented as of this encounter Care Teams Bilingual Kindergarten Teacher Relationship Specialty Start Date End Date Annie Wu M.D. NPMamta: [phone] [phone] PCP - General 07/24/16 [facility] Rim Turning Finisher 02/12/23 [facility] 02/12/23 [facility] Tong Hooker 02/12/23 documented as of this encounter
--- OUTSIDE RECORDS SUMMARY | 2023-03-11 11:27 | XMS_ITS | Encounter Summary ---
Author Name Unknown Organization [facility] Address [address] [place] [address] Care Team Providers Care Manager Of Revenue Name Role Phone Annie Wu M.D. Primary Care Pro vider Encounter Details Date Type Department Care Team (Late st Contact Info) Description 04/28/2005 Historical Ophthalmology RST OPH Dora Barbour O.D. Social History Tobacco Use Types Packs/Day Years Used Date Smoking Tobacco: Never Assessed Sex and Gender Information Value Date Recorded Sex Assigned at Female 04/12/2021 7:31 PM CHINESE TEACHER Gender Identity Female 04/12/2021 7:31 PM CHINESE TEACHER Sexual Orientation Straight 04/12/2021 7: 31 PM CHINESE TEACHER documented as of this encounter Progress Notes [...] astigmatism, presbyopia). CDM Reports - EYEGEN Id: [id number] Status: Fnl documented in this encounter Plan of Treatment Upcoming Encounters Date Type Department Care Team (Latest Contact Info) Description 05/08/2023 12:00 PM CDT Clinical Communication Virtual Review in [place], [place] 200 [place] [address] 05/11/2023 10:30 AM CDT Appointment Department of Radiology in [address] [address] Neptali Henning M.D. [address] [place] [phone] Discharge Disposition: Home or Self Care 05/11/2023 12:40 PM CDT Appointment Department of Radiology, [facility], in [address] [address] Neptali Henning M.D. [address] [place] [phone] Discharge Disposition: Home or Self Care 05/11/2023 3:30 PM CDT Office Visit Breast Diagnostic Clinic in [address] [address] Neptali Henning M.D. [address] [place] [phone] documented as of this encounter Visit Diagnoses Not on filedocumented in this encounter Care Teams Manager Of Revenue Relationship Specialty Start Date End Date Annie Wu M.D. [address] [phone] PCP - General 07/24/16 [facility] Systems Auditor 02/12/23 [facility] 02/12/23 [facility] Interactive Media Marketing Strategist 02/12/23 documented as of this encounter
--- OUTSIDE RECORDS SUMMARY | 2023-03-11 11:27 | XMS_ITS | Encounter Summary ---
Author Name Unknown Organization [facility] Address [address] [place] [address] Care Team Providers Care Biazzi Nitrator Operator Name Role Phone Annie Wu M.D. Primary Care Pro vider Reason for Referral * Outpatient (Routine) - Authorized Specialty Diagnoses / Procedures Referred By Contac t Referred To Contact Diagnoses Malignant Neoplasm Of Breast Female Left (HCC) Procedures BMD Bone Density Spine Hips Neptali Henning M.D. 200 [place] [address] [facility] Referral ID Status Reason Start Date Expiration Date V isits Requested Visits Authorized [id number] Authorized 05/07/2022 05/07/2023 1 1 * Outpatient (Routine) - Authorized Specialty Diagnoses / Procedures Referred By Conttanya t Referred To Contact Diagnoses Malignant Neoplasm Of Breast Female Left (HCC) Procedures BI Breast Diagnostic Bilateral with Tomosynthesis Neptali Henning M.D. [address] [place] [address] [facility] Referral ID Status Reason Start Date Expiration Date V isits Requested Visits Authorized [id number] Authorized 05/07/2022 05/07/2023 1 1 Reason for Visit * Reason Comments Establish Care Encounter Details Date Type Department Care Team (Late st Contact Info) Description 05/07/2022 2:30 PM CDT Office Visit Breast Diagnostic Clinic in [place], [place] 200 [place] [address] Neptali Henning M.D. 200 [place] [address] Malignant Neoplasm Of Breast Female Left (HCC) [...] often do you attend chur ch or amish services? More than 4 times per year 05/02/2022 Do you belong to any clubs o r organizations such as jewish groups, unions, fraternal or athletic groups, or [...] Score 3 02/11/2022 [facility]at ional Health - Occupational [...] place to sleep or slept in a long-term (including now)? No 05/02/2022 Depression Answer Date [...] Sex Assigned at Female 04/12/2021 7:31 PM SERVICE COORDINATOR Gender Identity Female 04/12/2021 7:31 PM SERVICE COORDINATOR Sexual Orientation Straight 04/12/2021 7: 31 PM SERVICE COORDINATOR documented as of this encounter Last Filed [...] Left recurrent breast cancer, grade 2 DCIS ER/NV positive, on endocrine therapy and radiographicsurveillance since [...] PM CDT Clinical Communication Virtual Review in [place], [place] 200 [place] [address] 05/11/2023 10:30 AM CDT Appointment Department of Radiology in [place], [place] [address] [place] [phone] Neptali Henning M.D. [address] [place] [phone] Discharge Disposition: Home or Self Care 05/11/2023 12:40 PM CDT Appointment Department of Radiology, [facility], in [place], [place] [address] [place] [address] Neptali Henning M.D. [address] [place] [address] Discharge Disposition: Home or Self Care 05/11/2023 3:30 PM CDT Office Visit Breast Diagnostic Clinic in [place], [place] [address] [place] [address] Neptali Henning M.D. [address] [place] [address] Scheduled Orders Name Type Priority Associated Diagnoses [...] Total Score: 9 02/11/19 23 9:15 AM SERVICE COORDINATOR documented as of this encounter Care Teams Biazzi Nitrator Operator Relationship Specialty Start Date End Date Annie Wu M.D. [address] [place] [phone] PCP - General 07/24/16 documented as of this encounter
--- OUTSIDE RECORDS SUMMARY | 2023-03-11 11:27 | XMS_ITS | Encounter Summary ---
Author Name Unknown Organization [facility] Address [address] [place] [address] Care Team Providers Care School Guard Name Role Phone Annie Wu M.D. Primary Care Pro vider Encounter Details Date Type Department Care Team (Late st Contact Info) Description 05/05/2005 Historical Ophthalmology [facility] Anna Thurston M.D. [address] [place] [address] Social History Tobacco Use Types Packs/Day Years Used Date Smoking Tobacco: Never Assessed Sex and Gender Information Value Date Recorded Sex Assigned at Female 04/12/2021 7:31 PM MAST MAKER Gender Identity Female 04/12/2021 7:31 PM MAST MAKER Sexual Orientation Straight 04/12/2021 7: 31 PM MAST MAKER documented as of this encounter Progress Notes [...] had laser treatment in March 2005 in [place]. Patient states that they never got to return to the doctor that did the laser treatment in [place] because they came back to [place]. Patient state that vision hasn't changed since they had laser. Denies flashing lights. States that they have 2 black spots in the line of vision but notice them allthe time. Has had them for awhile. Denies pressure and pain. States that she has watery eyes. 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 CDM Reports - EYEGEN Id: [id number] Status: Fnl documented in this encounter Plan of Treatment Upcoming Encounters Date Type Department Care Team (Latest Contact Info) Description 05/08/2023 12:00 PM CDT Clinical Communication Virtual Review in [address] [address] 05/11/2023 10:30 AM CDT Appointment Department of Radiology in [address] [phone] Neptali Henning M.D. [address] [place] [phone] Discharge Disposition: Home or Self Care 05/11/2023 12:40 PM CDT Appointment Department of Radiology, [facility], in [address] [phone] Neptali Henning M.D. [address] [place] [phone] Discharge Disposition: Home or Self Care 05/11/2023 3:30 PM CDT Office Visit [facility] in [place], [place] [address] [place] [address] Neptali Henning M.D. [address] [place] [address] documented as of this encounter Visit Diagnoses Not on filedocumented in this encounter Care Teams School Guard Relationship Specialty Start Date End Date Annie Wu M.D. [id number] [place] [phone] PCP - General 07/24/16 [facility] Care Roving Technician 02/12/23 [facility] 02/12/23 [facility] Hearing Manufacturing Plant Manager 02/12/23 documented as of this encounter
--- OUTSIDE RECORDS SUMMARY | 2023-03-11 11:27 | XMS_ITS | Encounter Summary ---
Author Name Unknown Organization [facility] Address [address] [place] [address] Care Team Providers Care Intelligence Engineer Name Role Phone Annie Wu M.D. Primary Care Pro vider Encounter Details Date Type Department Care Team (Late st Contact Info) Description 07/08/2005 Historical Ophthalmology [facility]ST O[facility] Anna Thurston M.D. [address] [place] [address] Social History Tobacco Use Types Packs/Day Years Used Date Smoking Tobacco: Never Assessed Sex and Gender Information Value Date Recorded Sex Assigned at Female 04/12/2021 7:31 PM ATTRACTION WORKER Gender Identity Female 04/12/2021 7:31 PM ATTRACTION WORKER Sexual Orientation Straight 04/12/2021 7: 31 PM ATTRACTION WORKER documented as of this encounter Progress Notes [...] eye s/p macular grid laser treatment in [place] 03/2005 #2 Macular edema - secondary to [...] astigmatism, presbyopia). CDM Reports - EYEGEN Id: [id number] Status: Fnl documented in this encounter Plan of Treatment Upcoming Encounters Date Type Department Care Team (Latest Contact Info) Description 05/08/2023 12:00 PM CDT Clinical Communication Virtual Review in [place], [place] [address] [place] [address] 05/11/2023 10:30 AM CDT Appointment Department of Radiology in [address] [phone] Neptali Henning M.D. [address] [place] [phone] Discharge Disposition: Home or Self Care 05/11/2023 12:40 PM CDT Appointment Department of Radiology, [facility], in [address] [phone] Neptali Henning M.D. [address] [place] [phone] Discharge Disposition: Home or Self Care 05/11/2023 3:30 PM CDT Office Visit [facility] in [address] [phone] Neptali Henning M.D. [address] [place] [phone] documented as of this encounter Visit Diagnoses Not on filedocumented in this encounter Care Teams Intelligence Engineer Relationship Specialty Start Date End Date Annie Wu M.D. [address] [place] [phone] PCP - General 07/24/16 [facility] Eye Care Vehicle Operator 02/12/23 [facility] 02/12/23 [facility] Nail Cutter 02/12/23 documented as of this encounter
--- OUTSIDE RECORDS SUMMARY | 2023-03-11 11:27 | XMS_ITS | Encounter Summary ---
Author Name Unknown Organization [facility] Address [address] [place] [address] Care Team Providers Care Hand Riveter Name Role Phone Annie Wu M.D. Primary Care Pro vider Reason for Visit * Reason Comments Med Refill Encounter Details Date Type Department Care Team (Late st Contact Info) Description 04/16/2022 Refill Breast Diagnostic Clinic in [place], [place] [address] [place] [address] Neptali Henning M.D. [address] [place] [phone] Med Refill Social History Tobacco Use Types [...] often do you attend chur ch or shinto services? More than 4 times per year 09/08/2021 Do you belong to any clubs o r organizations such as yazidi groups, unions, fraternal or athletic groups, or [...] Answer Date Recorded PHQ-2 Score 3 02/11/2022 [facility] - Occupational Stress Questionnaire Answer Date [...] place to sleep or slept in a usp (including now)? No 09/08/2021 Depression Answer Date [...] Sex Assigned at Female 04/12/2021 7:31 PM PRINTING SUPPLIES SALES REPRESENTATIVE Gender Identity Female 04/12/2021 7:31 PM PRINTING SUPPLIES SALES REPRESENTATIVE Sexual Orientation Straight 04/12/2021 7: 31 PM PRINTING SUPPLIES SALES REPRESENTATIVE documented as of this encounter Plan of Treatment Upcoming Encounters Date Type Department Care Team (Latest Contact Info) Description 05/08/2023 12:00 PM CDT Clinical Communication Virtual Review in [place], [place] [address] [place] [address] 05/11/2023 10:30 AM CDT Appointment Department of Radiology in [place], [place] [address] [place] [phone] Neptali Henning M.D. [address] [place] [phone] Discharge Disposition: Home or Self Care 05/11/2023 12:40 PM CDT Appointment Department of Radiology, [facility], in [place], [place] [address] [place] [address] Neptali Henning M.D. [address] [place] [address] Discharge Disposition: Home or Self Care 05/11/2023 3:30 PM CDT Office Visit [facility] Clinic in [place], [place] [address] [place] [address] Neptali Henning M.D. [address] [place] [address] documented as of this encounter Goals Goal [...] Total Score: 9 02/11/19 23 9:15 AM PRINTING SUPPLIES SALES REPRESENTATIVE documented as of this encounter Care Teams Hand Riveter Relationship Specialty Start Date End Date Annie Wu M.D. [address] [place] [phone] PCP - General 07/24/16 documented as of this encounter
[2023-03-11] MEDS: SODIUM CHLORIDE 0.9 % (FLUSH) 10 ML SYRINGE IVF (11:45)
[2023-03-11 11:58] VITALS: BMI 25.9
[2023-03-11 12:01] VITALS: BP 138/74; PULSE 65; RESP 18; TEMP 36.5; O2SAT 96
[2023-03-11] MEDS: TETRACAINE 0.5% OPHTH 2 DROP EYE-LEFT (12:30)
[2023-03-11] MEDS: BALANCED SALT IRRIG SOLN 15 ML EYE-LEFT (12:34)
--- NOTE | 2023-03-11 12:55 | P.OPTPRC_ITS ---
Procedure Note Date of procedure: 03/11/23 Will [facility] bill your pro fee for this procedure?: Yes Procedure Description: SURGEON: Delma Tovar MD PREOPERATIVE DIAGNOSIS: Nuclear sclerotic cataract, left eye. POSTOPERATIVE DIAGNOSIS: Nuclear sclerotic cataract, left eye. NAME OF OPERATION: Phacoemulsification of cataract with posterior chamber intraocular lens implantation in the left eye. ANESTHESIA: Topical. ESTIMATED BLOOD LOSS: Less than 2 cc. COMPLICATIONS: None. PATHOLOGY SPECIMEN: None. INDICATIONS: See consult note for details. The risks, benefits and alternatives of the procedure were explained to the patient, who elected to proceed and signed informed consent to do so. PROCEDURE: The patient was brought to the pre-holding area where the left eye was identified as the operative eye. I placed my initials above this eye. The patient received eye drops consisting of 0.5% tetracaine, 1% tropicamide, 10% phenylephrine, and 0.5% ketorolac. The patient was then brought to the operating room where the left eye was again identified as the operative eye. The eye was prepped with Betadine and draped in the usual sterile ophthalmic fashion. A #15 super-sharp blade was used to create a paracentesis site. 1% non-preserved intracameral lidocaine was injected into the anterior chamber. Endocoat was injected into the anterior chamber. A 2.4 mm keratome was used to create a three-plane self-sealing incision 1 mm anterior to the temporal limbus. A cystotome was used to create an anterior capsular leaflet. The Utrata forceps were used to extend this to form a continuous curvilinear capsulorrhexis. Hydrodissection was performed. The cataract was removed with phacoemulsification using the [id number] technique. The irrigation and aspiration tip was used to remove the remaining cortex. Healon was injected into the capsular bag. An NONI ZCB00 intraocular lens of 21.0 diopters was injected into the capsular bag. The irrigation and aspiration tip was used to remove the remaining viscoelastic. Balanced salt solution on a cannula was used to hydrate the wound, and the wound was found to be watertight. The pupil was noted to be round. DISPOSITION: The patient was taken to the recovery room and discharged to home in stable condition. The patient was instructed to call me or go to the emergency department with any sudden change, including dramatic loss of vision, severe pain in the eye or eyebrow region, nausea, or vomiting. The patient will follow up in the clinic tomorrow morning.
[2023-03-11 12:59] VITALS: BP 142/78; PULSE 65; RESP 126; TEMP 37; O2SAT 98
--- NOTE | 2023-03-11 12:59 | W.ANESCHARGE ---
Anesthesia Charges Start Date/Time Anesthesia Start Date: 03/11/23 Anesthesia Start Time: 12:29 Stop Date/Time Anesthesia Stop Date: 03/11/23 Anesthesia Stop Time: 12:59 Summary Extremes of Age - Over 70 or under 1: APPLICATION SUPPORT TECHNICIAN
--- NOTE | 2023-03-11 13:02 | W.ANESCHARGE ---
Anesthesia Charges Start Date/Time Anesthesia Start Date: 03/11/23 Anesthesia Start Time: 12:29 Stop Date/Time Anesthesia Stop Date: 03/11/23 Anesthesia Stop Time: 12:59 Summary Extremes of Age - Over 70 or under 1: MDA
== END 2023-03-11 13:30 | disposition home or self-care (01) ==
PROVIDERS: Visit Provider Ophthalmology
PROC: (CPT 66984; principal; 2023-03-11 11:30)
DX: H25.12 Age-related nuclear cataract, left eye (principal)
CPT/HCPCS: 66984; 00142; 99100; A9270; J2250; J3010; V2632